=== PATIENT | male | born 1970 | race Two or more races ===

== ENCOUNTER → 2016-02-22 | Outpatient (CLI) | payer BC ==
[2015-07-15 11:15] VITALS: BP 111/70
[~2016-02-22] MED LIST: ASPI325T4 PO; LIPITOR80 MG PO; LISI-338 PO; METO25TA4 PO; OMEG500C PO; PRAS10TA4 PO; REGADENOSON 0.4 MG/5 ML DISP.SYRIN. IV ONE
--- NOTE | 2016-02-22 16:54 | RAD ---
APPROVED REPORT Test Type: Pharmacological Stress Nurse/Tech: Serena Hernandez R.N. Test Indications: Chest pain, CAD Cardiac History: Hypertension, PR in 2016, PTCA Medications: See Electronic Medical Record Medical History: See Electronic Medical Record Resting ECG: NSR Resting Heart Rate: 65 bpm Resting Blood Pressure: 119/73mmHg Pretest Chest Pain: No chest pain Nurse/Tech Notes S1S2, lungs sound clear Consent: The procedure was explained to the patient in lay terms. Informed consent was witnessed. Omer eout was entered into [employer]. History and Stress Test performed by Serena Hernandez R.N. Pharm. Details Pharmacologic stress testing was performed using 0.4mg per 5ml of regadenoson given intravenously ove r 7-10 seconds. Stress Symptoms Dyspnea POST EXERCISE Reason for Termination: Infusion complete Max HR: 106 bpm Max Blood Pressure: 122/73mmHg Blood Pressure response to exercise: Normal blood pressure response during stress. Chest Pain: No. Arrhythmia: No. ST Change: No. INTERPRETATION Stress EKG Conclusion: No acute changes. Imaging Protocol IMAGE PROTOCOL: Rest Tc-99m/stress Tc-99m 1 day Rest: Stress: Viability: Radiopharm.Tc99m KgajrjisjRn11q Sestamibi Dose10.4mCi 30mCi Duration 15min. 10min. Img Date 02/22/2016 02/22/2016 Inj-Img Mrop63hte. 60min. Rest Admin Site:IV - Right AntecubitalAdministrator:Miguel Angel Vogt RT (R)(N) Stress Admin Site: IV - Right AntecubitalAdministrator: Kaylen Woods RT (R)(N) STRESS DATA End Diast. Vol.106.0mlAv. Heart Rate71.0bpm End Syst. Vol.29.0mlCO Index BSA5.5L/min Myocardial Vjgy256.0gEject. Vtylohpd08.0% Stress Rates Pk. Fill Rate2.61EDV/secLVtime Pk. Fill 188.51msec Pk. Empty Rate3.28ESV/secLVtime Pk. Plwnw526.98msec 02/15 Pk. Fill1.41EDV/sec Stress Scores Regional WT1.00Summed WT18.00 Regional WM0.00Summed WM0.00 LV Perfusion There is a large sized, severe in intensity lateral perfusion defect suggestive of prior infarct with minimal jenniffer-infarct reversibility. Wall Motion Grossly normal wall motion. LV Perf. Quant 17 Seg. SSS9.00 17 Seg. SRS8.00 17 Seg. SDS1.00 Stress Defect Extent (% LAD)1.90Rest Defect Extent (% LAD)0.60Rev. Defect Extent (% LAD)0.00 Stress Defect Extent (% LCX) 75.00Rest Defect Extent (% LCX)77.50Rev. Defect Extent (% LCX)16.30 Stress Defect Extent (% RCA)0.00Rest Defect Extent (% RCA)0.00Rev. Defect Extent (% RCA)0.00 Stress Defect Extent (% NAMRATA)18.30Rest Defect Extent (% NAMRATA)17.60Rev. Defect Extent (% NAMRATA)4.80 Other Information Quality:Good Risk Assessment: Low-Moderate Risk Conclusion 1. No evidence of stress induced EKG changes. 2. Fixed lateral wall infarct without active ischemia. 3. Normal EF at > 70% 4. Low to moderate risk study
== END | disposition home or self-care (01) ==
LOC: NM 07:34
PROVIDERS: ATTEND Internal Medicine Cardiovascular Disease
DX: I25.10 Atherosclerotic heart disease of native coronary artery without angina pectoris (principal); R07.9 Chest pain, unspecified
CPT/HCPCS: 78452; 93017; 96374; 96376; A9500; J2785

== ENCOUNTER 2016-06-18 07:21 | Inpatient (IN) | payer BC ==
[2016-06-18] VITALS (19 sets, daily range): BP systolic 95–154; BP diastolic 61–103
[~2016-06-18] VITALS: Ht 170.2 cm; Wt 77.6 kg
[~2016-06-18 07:21] MED LIST changes: -PRAS10TA4 PO; +PRAS10TA9 PO; -REGADENOSON 0.4 MG/5 ML DISP.SYRIN. IV ONE
--- NOTE | 2016-06-18 07:30 | PHYS DOC ---
Past Medical History Past Medical History: No Pertinent History Past Surgical History: Other Alcohol Use: Occasionally Drug Use: None Adult General Chief Complaint Chief Complaint: syncope, vomiting blood HPI HPI Patient is a 45 year old Berm[place] speaking male who presents with intermittent sharp stabbing substernal chest pain with a syncopal episode and vomiting blood. He states he's been having intermittent chest pains over the last several months and this morning he started feeling nauseated and had a syncopal episode. His daughter noticed blood in his vomit. According to his daughter who is helping interpret he's never had blood in his vomit before. He does have a history of coronary disease and has had stents by Dr. Nguyen in the past to his mid circumflex, mid LAD and RCA. He did have a history of alcohol abuse but hasn't drank for over a year. He used to drink one bottle of Deandre Walker every week any stone that from the age of 20 until last year. He stated he noticed black stool this morning. He also has past medical history of coronary disease, hypertension, dyslipidemia. Currently he denies any chest pain, shortness of breath, abdominal abdominal pain, nausea or vomiting. Review of Systems Review of Systems Constitutional: Denies fever or chills [] Eyes: Denies change in visual acuity, redness, or eye pain [] HENT: Denies nasal congestion or sore throat [] Respiratory: Denies cough or shortness of breath [] Cardiovascular: No additional information not addressed in HPI [] GI: Denies abdominal pain, nausea, vomiting, or diarrhea, positive for hematemesis [] : Denies dysuria or hematuria [] Musculoskeletal: Denies back pain or joint pain [] Integument: Denies rash or skin lesions [] Neurologic: Denies headache, focal weakness or sensory changes [] Endocrine: Denies polyuria or polydipsia [] Current Medications Current Medications Current Medications Medications (Trade) Dose Ordered Sig/Nele Start Time Stop Time Status Last Admin Dose Admin Norepinephrine Bitartrate 250 ml @ 0 mls/hr 1X ONCE 06/18/16 08:00 06/18/16 08:03 DC 06/18/16 08:09 2 MLS/HR Octreotide Acetate 500 mcg/ Sodium Chloride 101 ml @ 0 mls/hr CONT PRN 06/18/16 08:30 06/18/16 09:27 5 MLS/HR Pantoprazole Sodium 80 mg/ Sodium Chloride 100 ml @ 10 mls/hr 1X ONCE 06/18/16 08:00 06/18/16 17:59 Sodium Chloride 1,000 ml @ 1,000 mls/hr 1X ONCE 06/18/16 08:00 06/18/16 08:59 DC 06/18/16 08:06 1,000 MLS/HR Allergies Allergies Allergies Coded Allergies Type Severity Reaction Last Updated Verified No Known Drug Allergies 07/11/15 No Physical Exam Physical Exam Constitutional: Well developed, well nourished, no acute distress, non-toxic appearance. [] HENT: Normocephalic, atraumatic, bilateral external ears normal, oropharynx moist, no oral exudates, nose normal. [] Eyes: PERRLA, EOMI, conjunctiva normal, no discharge. [] Neck: Normal range of motion, no tenderness, supple, no stridor. [] Cardiovascular:Heart rate regular rhythm, no murmur [] Lungs & Thorax: Bilateral breath sounds clear to auscultation [] Abdomen/rectal: Bowel sounds normal, soft, no tenderness, no masses, no pulsatile masses. Normal tone, stool in the vault, stool black in appearance, [ ] Skin: Warm, dry, no erythema, no rash. [] Back: No tenderness, no CVA tenderness. [] Extremities: No tenderness, no cyanosis, no clubbing, ROM intact, no edema. [] Neurologic: Alert and oriented X 3, normal motor function, normal sensory function, no focal deficits noted. [] Psychologic: Affect normal, judgement normal, mood normal. [] Current Patient Data Vital Signs Vital Signs Date Time Temp Pulse Resp B/P (MAP) Pulse Ox O2 Delivery O2 Flow Rate FiO2 06/18/16 07:21 97.8 87 20 102/68 (79) 98 Room Air 97.8 Lab Values Laboratory Tests Test 06/18/16 07:42 06/18/16 08:06 White Blood Count 8.4 x10^3/uL (4.0-11.0) Red Blood Count 3.72 x10^6/uL (4.30-5.70) L Hemoglobin 10.9 g/dL (13.0-17.5) L Hematocrit 33.8 % (39.0-53.0) L Mean Corpuscular Volume 91 fL (79-100) Mean Corpuscular Hemoglobin 29 pg (25-35) Mean Corpuscular Hemoglobin Concent 32 g/dL (31-37) Red Cell Distribution Width 13.7 % (11.5-14.5) Platelet Count 245 x10^3/uL (140-400) Neutrophils (%) (Auto) 54 % (31-73) Lymphocytes (%) (Auto) 35 % (24-48) Monocytes (%) (Auto) 6 % (0-9) Eosinophils (%) (Auto) 5 % (0-3) H Basophils (%) (Auto) 1 % (0-3) Neutrophils # (Auto) 4.5 x10^3uL (1.8-7.7) Lymphocytes # (Auto) 3.0 x10^3/uL (1.0-4.8) Monocytes # (Auto) 0.5 x10^3/uL (0.0-1.1) Eosinophils # (Auto) 0.4 x10^3/uL (0.0-0.7) Basophils # (Auto) 0.1 x10^3/uL (0.0-0.2) Prothrombin Time 15.0 SEC (11.7-14.0) H Prothrombin Time INR 1.3 (0.8-1.1) H PTT 32 SEC (24-38) O2 Saturation 94 % (92-99) Arterial Blood pH 7.36 (7.35-7.45) Arterial Blood pCO2 at Patient Temp 35 mmHg (35-46) Arterial Blood pO2 at Patient Temp 80 mmHg (75-108) Arterial Blood HCO3 20 mmol/L (21-28) L Arterial Blood Base Excess -5 mmol/L (-3-3) L FiO2 21 Sodium Level 141 mmol/L (136-145) Potassium Level 3.5 mmol/L (3.5-5.1) Chloride Level 106 mmol/L (98-107) Carbon Dioxide Level 25 mmol/L (21-32) Anion Gap 10 (6-14) Blood Urea Nitrogen 42 mg/dL (8-26) H Creatinine 0.8 mg/dL (0.7-1.3) Estimated GFR (Cockcroft-Gault) 104.5 Glucose Level 187 mg/dL (70-99) H Calcium Level 7.3 mg/dL (8.5-10.1) L Total Bilirubin 0.3 mg/dL (0.2-1.0) Direct Bilirubin 0.1 mg/dL (0.0-0.2) Aspartate Amino Transferase (AST) 30 U/L (15-37) Alanine Aminotransferase (ALT) 72 U/L (16-63) H Alkaline Phosphatase 55 U/L (46-116) Ammonia 57 mcmol/L (11-34) H Creatine Kinase 113 U/L (39-308) Creatine Kinase MB (Mass) 0.9 ng/mL (0.0-3.6) Creatine Kinase MB Relative Index 0.8 % (0-4) Troponin I Quantitative 0.020 ng/mL (0.000-0.055) Total Protein 5.9 g/dL (6.4-8.2) L Albumin 2.9 g/dL (3.4-5.0) L Stool Occult Blood Positive (NEG) Laboratory Tests 06/18/16 07:42 Laboratory Tests 06/18/16 07:42 EKG EKG EKG shows normal sinus rhythm with rate of [address] elevations, T- wave inversions, QTC 431 ms, as interpreted by me. Radiology/Procedures Radiology/Procedures [facility] [address] [place] [address] IMAGING REPORT Signed PATIENT: BUNNY DAMON ACCOUNT: [id number] : 1970 LOCATION: ER AGE: 45 SEX: M EXAM STATUS: PRE ER ORD. PHYSICIAN: RAMOS MAY MD REASON: chest pain, clammy and not responding to instructions PROCEDURE: ACUTE ABDOMEN SERIES Indication chest pain. Abdominal pain. A single view of the chest as well as flat and upright films of the abdomen were obtained. No prior imaging of the abdomen is available. The chest is compared to a study 07/11/2015. The heart, pulmonary vessels and mediastinum appear clear. The lungs are clear of acute infiltrates. There has not been a significant change in the appearance of the chest compared to the previous exam. There is no free air. The abdominal gas pattern is normal. No organomegaly or abnormal calculi are seen. Occasional small calcifications are noted in the pelvis compatible with phleboliths. IMPRESSION: No acute finding seen in the chest or abdomen on plain films DICTATED and SIGNED BY: ANTONIO ALEJO MD DATE: 06/18/16803 CC: RAMOS MAY MD; NO PCP ~ Impressions: Active GI bleed Coronary disease Hypotension Anemia Coronary disease Dyslipidemia Course & Med Decision Making Course & Med Decision Making Pertinent Labs and Imaging studies reviewed. (See chart for details) Patient presented with hypotension, history of bright red blood in his vomit with dark stools this morning and a syncopal episode. He received 250 mL of normal saline in route by EMS and his blood pressure did improve from 90s to 120s systolic. Here his blood pressure dropped to the 60s and he became diaphoretic. Additional liter of fluid was infused and his blood pressure improved back into the 90s. Levofed was ordered in addition to Protonix ggt. I spoke with who wanted the GI team called in for emergent scope and for the patient to be started on octreotide ggt and 2 units of blood. Patient is being admitted to the ICU under the hospitalist. Interim orders have been written. The patient is in stable but critical condition. This has been explained to his daughter. Echo care time 60 minutes of critical care time was used on this patient excluding procedures. Dragon Disclaimer Dragon Disclaimer This electronic medical record was generated, in whole or in part, using a voice recognition dictation system. Departure Departure Impression: Primary Impression: GI bleed Disposition: ADMITTED INPATIENT Admitting Physician: Esther Funk Condition: CRITICAL Referrals: NO PCP (PCP) RAMOS MAY MD June 18, 2016 07:30
[2016-06-18] MEDS ORDERED: IV NORMAL SALINE 1000ML BAG 1,000 ML IV ONE (08:00)
[2016-06-18] MEDS ORDERED: NOREPINEPHRIN PREMIX 250 ML IV ONE (08:00)
[2016-06-18] MEDS ORDERED: PANTOPRAZOLE SODIUM IV 80 MG in IV NORMAL SALINE 100ML 100 ML IV ONE (08:00)
[2016-06-18 08:03] LABS: BASO # 0.1 x10^3/uL (0.0-0.2); BASO % 1 % (0-3); EOS % 5 % (0-3); HEMATOCRIT 33.8 % (39.0-53.0); HEMOGLOBIN 10.9 g/dL (13.0-17.5); LYMPH % 35 % (24-48); MEAN CORPUSCULAR HEMOGLOBIN 29 pg (25-35); MEAN CORPUSCULAR HGB CONC 32 g/dL (31-37); MEAN CORPUSCULAR VOLUME 91 fL (79-100); MONO % 6 % (0-9); NEUT % 54 % (31-73); PLATELET COUNT 245 x10^3/uL (140-400); RED BLOOD COUNT 3.72 x10^6/uL (4.30-5.70); RED CELL DISTRIBUTION WIDTH 13.7 % (11.5-14.5); WHITE BLOOD COUNT 8.4 x10^3/uL (4.0-11.0)
[2016-06-18 08:04] LABS: INR 1.3 (0.8-1.1)
--- NOTE | 2016-06-18 08:10 | RAD ---
Indication chest pain. Abdominal pain. A single view of the chest as well as flat and upright films of the abdomen were obtained. No prior imaging of the abdomen is available. The chest is compared to a study 07/11/2015. The heart, pulmonary vessels and mediastinum appear clear. The lungs are clear of acute infiltrates. There has not been a significant change in the appearance of the chest compared to the previous exam. There is no free air. The abdominal gas pattern is normal. No organomegaly or abnormal calculi are seen. Occasional small calcifications are noted in the pelvis compatible with phleboliths. IMPRESSION: No acute finding seen in the chest or abdomen on plain films
[2016-06-18 08:11] LABS: FIO2 ABG 21; HCO3 ABG 20 mmol/L (21-28); PCO2 ABG 35 mmHg (35-46); PH ABG 7.36 (7.35-7.45); PO2 ABG 80 mmHg (75-108); SAT O2 ABG 94 % (92-99)
[2016-06-18 08:13] LABS: CALCIUM 7.3 mg/dL (8.5-10.1); CREATININE 0.8 mg/dL (0.7-1.3); GFR 104.5; POTASSIUM 3.5 mmol/L (3.5-5.1)
[2016-06-18 08:19] LABS: ALBUMIN 2.9 g/dL (3.4-5.0); DIRECT BILIRUBIN 0.1 mg/dL (0.0-0.2); TOTAL BILIRUBIN 0.3 mg/dL (0.2-1.0); TOTAL PROTEIN 5.9 g/dL (6.4-8.2)
[2016-06-18 08:25] LABS: CKMB MASS 0.9 ng/mL (0.0-3.6)
[2016-06-18] MEDS ORDERED: OCTREOTIDE 500 MCG in IV NORMAL SALINE 100ML 100 ML IV PRN (08:30)
[2016-06-18 08:42] LABS: NEG OBC FOB NEG; POS OBC FOB POS
[2016-06-18] MEDS ORDERED: ONDANSETRON PF 4 MG/2 ML VIAL. IV PRN (08:45)
[2016-06-18] MEDS ORDERED: MIDAZOLAM HCL/PF 5 MG/5 ML VIAL. ONE ×2 (09:16→09:17)
[2016-06-18] MEDS ORDERED: diphenhydrAMINE 50 MG/ML VIAL ONE (09:17)
[2016-06-18] MEDS ORDERED: fentaNYL PF VIAL 100 MCG/2 ML VIAL ONE (09:17)
--- NOTE | 2016-06-18 09:38 | EKG ---
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
[2016-06-18] MEDS ORDERED: MIDAZOLAM HCL/PF 5 MG/5 ML VIAL. IV ONE ×5 (09:58→10:13)
[2016-06-18] MEDS ORDERED: fentaNYL PF VIAL 100 MCG/2 ML VIAL IV ONE ×5 (09:58→10:13)
[2016-06-18] MEDS ORDERED: EPINEPHrine 1 MG/ML VIAL SQ ONE (10:10)
--- NOTE | 2016-06-18 10:31 | PDOC4 ---
Operative Note Operative Note EGD with cautery/epi injection Meds Versed 7 mg Fentanyl 200 mcg iv Pre-op dx acute blood loss anemia/melena/hematemesis post-op dx bleeding gastric ulcer s/p cautery /epi injection 8 cc lesser curve with visible vessel -40% chance of rebleeding with endoscopic stigmata Plan serial cbcs transfusional support to maintain Hg > 8 ir/surgical consults for possible embolization/oversew if patient rebleeds npo for 48 hours/IV PPI therapy TJ MARAVILLA MD June 18, 2016 10:31
[2016-06-18] MEDS ORDERED: EPINEPHrine SYRINGE 1 MG/10 ML SYRINGE ONE (10:57)
--- NOTE | 2016-06-18 13:02 | ACF ---
Admission Forms Criteria GASTROINTESTINAL BLEEDING Clinical Indications for Inpatient Care (Place 'X' for any and all applicable criteria): Ongoing inpatient care may be indicated for gastrointestinal bleeding with ANY ONE of the following (4)(20)(21)(22)(23)(24): [ ]I. Active bleeding (eg, fresh voluminous blood in emesis or nasogastric aspirate, or per rectum) [X]II. Hemodynamic instability [ ]III. Anticoagulation therapy or coagulopathy ((eg, advanced liver disease, irreversible anticoagulation) [ ]IV. Ischemic colitis (22) [ ]V. Endoscopy showing arterial bleeding, adherent clot, nonbleeding visible vessel, varices, flat red spots, ulcer size greater than 2 cm, or portal hypertensive gastropathy [ ]. High-risk low platelet count [ ]VII. Anemia requiring inpatient care as indicated by ANY ONE of the following a)[ ] Cognitive impairment b)[ ] Syncope c)[ ] Heart failure d)[ ] Chest pain e)[ ] Dyspnea f)[ ] Other findings suggesting inadequate perfusion (eg, peripheral or myocardial ischemia, end organ dysfunction) [ ]VIII. High-risk low platelet count [ ]IX. Suspected variceal cause of bleeding as indicated by ANY ONE of the following(27)(28): a)[ ] Known varices b)[ ] Hepatomegaly or splenomegaly c)[ ] Ascites d)[ ] Jaundice or scleral icterus e)[ ] History of liver disease (eg, cirrhosis) f)[ ] Physical findings of portal hypertension (eg, caput medusa) g)[ ] Comorbid disorder indicating risk for portal vein thrombosis (eg , abdominal surgery, sepsis, shock, exchange transfusion, prior umbilical vein catheterization) Extended stay may be needed until ALL of the following are present(20)(38)(47): [ ]a) Hemodynamic stability [ ]b) No evidence of active bleeding (eg, stable Hematocrit) [ ]c) Platelet count, prothrombin time, and partial thromboplastin time acceptable for next level of care [ ]d) Surgical or other acute intervention not needed [ ]e) Oral hydration and diet tolerated The original [employer] content created by [employer] has been revised. The portions of the content which have been revised are identified through the use of italic text or in bold, and [employer] has neither reviewed nor approved the modified material. All other unmodified content is copyright [facility]. Please see references footnoted in the original [facility] edition 2016 Admission Criteria Met?: Yes HENRIETTA CAPELLAN June 18, 2016 13:02
[2016-06-18] MEDS ORDERED: DEXTROSE 50% 25 GM / 50ML DISP.SYRIN. IV PRN (15:15)
--- NOTE | 2016-06-18 16:13 | PDOC1 ---
History and Physical Date of Admission Date of Admission DATE: 06/18/16 TIME: 16:02 Identification/Chief Complaint Chief Complaint hematemesis Problems: Source Source: Chart review, Patient History of Present Illness History of Present Illness Mr. Lacey, is a 45 year old [place] male, admit fo abd pain and hematemesis New onset this AM of intermittent sharp stabbing pain with a syncopal episode. I saw him in the ICU after EGD, and he is calm and reports feeling better some translation done by his son. reports intermittent chest pains, and only recently nauseated . Stool has been more melanotic, this AM only He has stopped EtOH intake, prior heavy use. Past Medical History Cardiovascular: No pertinent hx Pulmonary: No pertinent hx GI: Other Renal/: No pertinent hx Endocrine: No pertinent hx Past Surgical History Past Surgical History: Cholecystectomy Family History Family History: No Significant Social History Smoke: No ALCOHOL: occassional Drugs: None Current Problem List Problem List Problems Medical Problems: (1) GI bleed Status: Acute Problems: Current Medications Current Medications Current Medications Sodium Chloride 1,000 ml @ 1,000 mls/hr 1X ONCE IV Last administered on 08:06; Start 06/18/16 at 08:00; Stop 06/18/16 at 08:59; Status DC Norepinephrine Bitartrate 250 ml @ 0 mls/hr 1X ONCE IV Last administered on 08:09; Start 06/18/16 at 08:00; Stop 06/18/16 at 08:03; Status DC Pantoprazole Sodium 80 mg/ Sodium Chloride 100 ml @ 10 mls/hr 1X ONCE IV Last administered on 06/18/16 13:25; Start 06/18/16 at 08:00; Stop 06/18/16 at 17: 59 Octreotide Acetate 500 mcg/ Sodium Chloride 101 ml @ 0 mls/hr CONT PRN IV SEE I /O RECORD Last administered on 06/18/16 09:27; Start 06/18/16 at 08:30 Ondansetron HCl (Zofran) 4 mg PRN Q8HRS PRN IV NAUSEA/VOMITING; Start 06/18/16 at 08:45; Stop 06/19/16 at 08:44 Midazolam HCl (Versed) 5 mg STK-MED ONCE .ROUTE ; Start 06/18/16 at 09:16; Stop 06/18/16 at 09:17; Status DC Fentanyl Citrate (Fentanyl 2ml Vial) 100 mcg STK-MED ONCE .ROUTE ; Start at 09:17; Stop 06/18/16 at 09:18; Status DC Diphenhydramine HCl (Benadryl) 50 mg STK-MED ONCE .ROUTE ; Start 06/18/16 at 09: 17; Stop 06/18/16 at 09:18; Status DC Midazolam HCl (Versed) 5 mg STK-MED ONCE .ROUTE ; Start 06/18/16 at 09:17; Stop 06/18/16 at 09:18; Status DC Fentanyl Citrate (Fentanyl 2ml Vial) 100 mcg STK-MED ONCE IV Last administered on 06/18/16 09:58; Start 06/18/16 at 09:58; Stop 06/18/16 at 10:31; Status DC Midazolam HCl (Versed) 5 mg STK-MED ONCE IV Last administered on 06/18/16 09:58 ; Start 06/18/16 at 09:58; Stop 06/18/16 at 10:31; Status DC Fentanyl Citrate (Fentanyl 2ml Vial) 100 mcg STK-MED ONCE IV Last administered on 06/18/16 10:00; Start 06/18/16 at 10:00; Stop 06/18/16 at 10:31; Status DC Midazolam HCl (Versed) 5 mg STK-MED ONCE IV Last administered on 06/18/16 10:00 ; Start 06/18/16 at 10:00; Stop 06/18/16 at 10:31; Status DC Fentanyl Citrate (Fentanyl 2ml Vial) 100 mcg STK-MED ONCE IV Last administered on 06/18/16 10:02; Start 06/18/16 at 10:02; Stop 06/18/16 at 10:31; Status DC Midazolam HCl (Versed) 5 mg STK-MED ONCE IV Last administered on 06/18/16 10:02 ; Start 06/18/16 at 10:02; Stop 06/18/16 at 10:31; Status DC Fentanyl Citrate (Fentanyl 2ml Vial) 100 mcg STK-MED ONCE IV Last administered on 06/18/16 10:11; Start 06/18/16 at 10:11; Stop 06/18/16 at 10:31; Status DC Midazolam HCl (Versed) 5 mg STK-MED ONCE IV Last administered on 06/18/16 10:11 ; Start 06/18/16 at 10:11; Stop 06/18/16 at 10:31; Status DC Fentanyl Citrate (Fentanyl 2ml Vial) 100 mcg STK-MED ONCE IV Last administered on 06/18/16 10:13; Start 06/18/16 at 10:13; Stop 06/18/16 at 10:31; Status DC Midazolam HCl (Versed) 5 mg STK-MED ONCE IV Last administered on 06/18/16 10:13 ; Start 06/18/16 at 10:13; Stop 06/18/16 at 10:31; Status DC Epinephrine HCl (Adrenalin) 1 mg STK-MED ONCE SQ Last administered on 06/18/16 10:10; Start 06/18/16 at 10:10; Stop 06/18/16 at 10:52; Status DC Epinephrine HCl (Epinephrine Syringe) 1 mg STK-MED ONCE .ROUTE ; Start 06/18/16 at 10:57; Stop 06/18/16 at 10:58; Status DC Insulin Aspart (Novolog) 0-7 UNITS TIDWMEALS SQ ; Start 06/18/16 at 17:00 Dextrose (Dextrose 50%-Water Syringe) 12.5 gm PRN Q15MIN PRN IV SEE COMMENTS; Start 06/18/16 at 15:15 Potassium Chloride 100 ml @ 100 mls/hr Q1H IV ; Start 06/18/16 at 16:00; Stop at 17:59 Active Scripts Active Metoprolol Tartrate 25 Mg Tablet 1 Tab PO BID Lipitor (Atorvastatin Calcium) 80 Mg Tablet 1 Tab PO DAILY Effient (Prasugrel Hcl) 10 Mg Tablet 1 Tab PO DAILY Allergies Allergies: Coded Allergies: No Known Drug Allergies (Unverified , 07/11/15) ROS General: No: Chills, Night Sweats, Fatigue, Malaise, Appetite, Other PSYCHOLOGICAL ROS: No: Anxiety, Behavioral Disorder, Concentration difficultie , Decreased libido, Depression, Disorientation, Hallucinations, Hostility, Irritablity, Memory difficulties, Mood Swings, Obsessive thoughts, Physical abuse, Sexual abuse, Sleep disturbances, Suicidal ideation, Other Eyes: No Blurry vision, No Decreased vision, No Double vision, No Dry eyes, No Excessive tearing, No Eye Pain, No Itchy Eyes, No Loss of vision, No Photophobia , No Scotomata, No Uses contacts, No Uses glasses, No Other HEENT: YES: Heacaches, No: Visual Changes, Hearing change, Nasal congestion, Nasal discharge, Oral lesions, Sinus pain, Sore Throat, Epistaxis, Sneezing, Snoring, Tinnitus, Vertigo, Vocal changes, Other Gastrointestinal: Yes Nausea, Yes Vomiting, Yes Abdominal Pain, Yes Melena, Yes Hematochezia, No Diarrhea, No Constipation, No Other Genitourinary: No Dysuria, No Frequency, No Incontinence, No Hematuria, No Retention, No Discharge, No Urgency, No Pain, No Flank Pain, No Other, No , No , No , No , No , No , No Musculoskeletal: No Gait Disturbance, No Joint Pain, No Joint Stiffness, No Joint Swelling, No Muscle Pain, No Muscular Weakness, No Pain In:, No Swelling In:, No Other Neurological: No Behavorial Changes, No Bowel/Bladder ControlChng, No Confusion , No Dizziness, No Gait Disturbance, No Headaches, No Impaired Coord/balance, No Memory Loss, No Numbness/Tingling, No Seizures, No Speech Problems, No Tremors, No Visual Changes, No Weakness, No Other Skin: No Dry Skin, No Eczema, No Hair Changes, No Lumps, No Mole Changes, No Mottling, No Nail Changes, No Pruritus, No Rash, No Skin Lesion Changes, No Other, No Acne Physical Exam General: Alert, Oriented X3, Cooperative, No acute distress HEENT: EOMI, Mucous membr. moist/pink Lungs: Normal air movement Heart: S1S2 Abdomen: Normal bowel sounds, Soft (tender) Rectal Exam: not examined Extremities: No clubbing, No edema Skin: No rashes, No breakdown, No significant lesion Neuro: Normal speech, Sensation intact, Cranial nerves 3-12 NL Psych/Mental Status: Mental status NL, Mood NL Vitals Vitals Vital Signs Date Time Temp Pulse Resp B/P (MAP) Pulse Ox O2 Delivery O2 Flow Rate FiO2 06/18/16 15:00 105 128/82 (97) 99 Room Air 06/18/16 11:30 98.5 18 98.5 06/18/16 10:53 3.0 Labs Labs Laboratory Tests Test 06/18/16 07:42 06/18/16 08:06 White Blood Count 8.4 x10^3/uL (4.0-11.0) Red Blood Count 3.72 x10^6/uL (4.30-5.70) Hemoglobin 10.9 g/dL (13.0-17.5) Hematocrit 33.8 % (39.0-53.0) Mean Corpuscular Volume 91 fL (79-100) Mean Corpuscular Hemoglobin 29 pg (25-35) Mean Corpuscular Hemoglobin Concent 32 g/dL (31-37) Red Cell Distribution Width 13.7 % (11.5-14.5) Platelet Count 245 x10^3/uL (140-400) Neutrophils (%) (Auto) 54 % (31-73) Lymphocytes (%) (Auto) 35 % (24-48) Monocytes (%) (Auto) 6 % (0-9) Eosinophils (%) (Auto) 5 % (0-3) Basophils (%) (Auto) 1 % (0-3) Neutrophils # (Auto) 4.5 x10^3uL (1.8-7.7) Lymphocytes # (Auto) 3.0 x10^3/uL (1.0-4.8) Monocytes # (Auto) 0.5 x10^3/uL (0.0-1.1) Eosinophils # (Auto) 0.4 x10^3/uL (0.0-0.7) Basophils # (Auto) 0.1 x10^3/uL (0.0-0.2) Prothrombin Time 15.0 SEC (11.7-14.0) Prothromb Time International Ratio 1.3 (0.8-1.1) Activated Partial Thromboplast Time 32 SEC (24-38) O2 Saturation 94 % (92-99) Arterial Blood pH 7.36 (7.35-7.45) Arterial Blood pCO2 at Patient Temp 35 mmHg (35-46) Arterial Blood pO2 at Patient Temp 80 mmHg (75-108) Arterial Blood HCO3 20 mmol/L (21-28) Arterial Blood Base Excess -5 mmol/L (-3-3) FiO2 21 Sodium Level 141 mmol/L (136-145) Potassium Level 3.5 mmol/L (3.5-5.1) Chloride Level 106 mmol/L (98-107) Carbon Dioxide Level 25 mmol/L (21-32) Anion Gap 10 (6-14) Blood Urea Nitrogen 42 mg/dL (8-26) Creatinine 0.8 mg/dL (0.7-1.3) Estimated GFR (Cockcroft-Gault) 104.5 Glucose Level 187 mg/dL (70-99) Calcium Level 7.3 mg/dL (8.5-10.1) Total Bilirubin 0.3 mg/dL (0.2-1.0) Direct Bilirubin 0.1 mg/dL (0.0-0.2) Aspartate Amino Transf (AST/SGOT) 30 U/L (15-37) Alanine Aminotransferase (ALT/SGPT) 72 U/L (16-63) Alkaline Phosphatase 55 U/L (46-116) Ammonia 57 mcmol/L (11-34) Creatine Kinase 113 U/L (39-308) Creatine Kinase MB (Mass) 0.9 ng/mL (0.0-3.6) Creatine Kinase MB Relative Index 0.8 % (0-4) Troponin I Quantitative 0.020 ng/mL (0.000-0.055) Total Protein 5.9 g/dL (6.4-8.2) Albumin 2.9 g/dL (3.4-5.0) Stool Occult Blood Positive (NEG) Laboratory Tests Test 06/18/16 07:42 06/18/16 08:06 White Blood Count 8.4 x10^3/uL (4.0-11.0) Red Blood Count 3.72 x10^6/uL (4.30-5.70) Hemoglobin 10.9 g/dL (13.0-17.5) Hematocrit 33.8 % (39.0-53.0) Mean Corpuscular Volume 91 fL (79-100) Mean Corpuscular Hemoglobin 29 pg (25-35) Mean Corpuscular Hemoglobin Concent 32 g/dL (31-37) Red Cell Distribution Width 13.7 % (11.5-14.5) Platelet Count 245 x10^3/uL (140-400) Neutrophils (%) (Auto) 54 % (31-73) Lymphocytes (%) (Auto) 35 % (24-48) Monocytes (%) (Auto) 6 % (0-9) Eosinophils (%) (Auto) 5 % (0-3) Basophils (%) (Auto) 1 % (0-3) Neutrophils # (Auto) 4.5 x10^3uL (1.8-7.7) Lymphocytes # (Auto) 3.0 x10^3/uL (1.0-4.8) Monocytes # (Auto) 0.5 x10^3/uL (0.0-1.1) Eosinophils # (Auto) 0.4 x10^3/uL (0.0-0.7) Basophils # (Auto) 0.1 x10^3/uL (0.0-0.2) Prothrombin Time 15.0 SEC (11.7-14.0) Prothromb Time International Ratio 1.3 (0.8-1.1) Activated Partial Thromboplast Time 32 SEC (24-38) O2 Saturation 94 % (92-99) Arterial Blood pH 7.36 (7.35-7.45) Arterial Blood pCO2 at Patient Temp 35 mmHg (35-46) Arterial Blood pO2 at Patient Temp 80 mmHg (75-108) Arterial Blood HCO3 20 mmol/L (21-28) Arterial Blood Base Excess -5 mmol/L (-3-3) FiO2 21 Sodium Level 141 mmol/L (136-145) Potassium Level 3.5 mmol/L (3.5-5.1) Chloride Level 106 mmol/L (98-107) Carbon Dioxide Level 25 mmol/L (21-32) Anion Gap 10 (6-14) Blood Urea Nitrogen 42 mg/dL (8-26) Creatinine 0.8 mg/dL (0.7-1.3) Estimated GFR (Cockcroft-Gault) 104.5 Glucose Level 187 mg/dL (70-99) Calcium Level 7.3 mg/dL (8.5-10.1) Total Bilirubin 0.3 mg/dL (0.2-1.0) Direct Bilirubin 0.1 mg/dL (0.0-0.2) Aspartate Amino Transf (AST/SGOT) 30 U/L (15-37) Alanine Aminotransferase (ALT/SGPT) 72 U/L (16-63) Alkaline Phosphatase 55 U/L (46-116) Ammonia 57 mcmol/L (11-34) Creatine Kinase 113 U/L (39-308) Creatine Kinase MB (Mass) 0.9 ng/mL (0.0-3.6) Creatine Kinase MB Relative Index 0.8 % (0-4) Troponin I Quantitative 0.020 ng/mL (0.000-0.055) Total Protein 5.9 g/dL (6.4-8.2) Albumin 2.9 g/dL (3.4-5.0) Stool Occult Blood Positive (NEG) VTE Prophylaxis Ordered VTE Prophylaxis Devices: No VTE Pharmacological Prophylaxi: Yes Assessment/Plan Assessment/Plan hematemesis Acute blood loss anemia, GI bleed, upper elevated BUN from gastric blood moderate malnutrition possible cirrhosis of liver, elevated ammonia level admit to ICU protonix gtt and octreotide MARTHA STONE MD June 18, 2016 16:13
[2016-06-18 16:14] LABS: BASO % 0 % (0-3); EOS % 0 % (0-3); HEMATOCRIT 36.7 % (39.0-53.0); HEMOGLOBIN 12.5 g/dL (13.0-17.5); LYMPH % 17 % (24-48); MEAN CORPUSCULAR HEMOGLOBIN 30 pg (25-35); MEAN CORPUSCULAR HGB CONC 34 g/dL (31-37); MEAN CORPUSCULAR VOLUME 87 fL (79-100); MONO % 6 % (0-9); NEUT % 77 % (31-73); PLATELET COUNT 230 x10^3/uL (140-400); RED BLOOD COUNT 4.23 x10^6/uL (4.30-5.70); RED CELL DISTRIBUTION WIDTH 14.3 % (11.5-14.5); WHITE BLOOD COUNT 11.9 x10^3/uL (4.0-11.0)
[2016-06-18] MEDS ORDERED: fentaNYL PF VIAL 100 MCG/2 ML VIAL IV PRN (16:15)
[2016-06-18] MEDS: INSULIN ASPART 300 UNITS/3 ML INSULN.PEN SQ SCH (17:00)
[2016-06-18] MEDS: POTASSIUM CHLORIDE 10MEQ 100 ML IV SCH ×2 (17:23→19:02)
--- NOTE | 2016-06-18 20:07 | OP ---
DATE OF SURGERY: 06/18/2016 PROCEDURE: Esophagogastroduodenoscopy with control of bleeding with epinephrine injection and cautery. PREOPERATIVE DIAGNOSIS: Acute blood loss anemia, hematemesis and melena. POSTOPERATIVE DIAGNOSIS: Gastric ulcer bleed on the lesser curve, status post cautery and epinephrine injection. MEDICATIONS RECEIVED: Versed ____ IV and fentanyl ____ IV. DESCRIPTION OF PROCEDURE: After risks and benefits of procedure including the risk of hemorrhage, perforation requiring operation were discussed with the patient and family, informed consent was obtained. The patient was then placed in the left lateral decubitus position. Parenteral analgesia was then administered throughout the procedure. The endoscope was then advanced into the esophagus, stomach, and first and second portions of duodenum. Once the patient was sedated, there was no evidence of esophagitis, varices or stricture within the esophagus. Large amount of retained blood was noted in the stomach. The duodenum was quickly cleared without evidence of retained ulcer, blood or additional pathology. Within the stomach, a large amount of retained blood was encountered. This was partially suctioned and an ulcer with a visible vessel ____ clot was then identified along the lesser curve. This was then cauterized and injected with epinephrine with cessation of bleeding. The scope was then straightened and withdrawn. The patient tolerated the procedure well without evidence of immediate complications. We will recommend PPI therapy, serial blood counts, n.p.o. for the next 48 hours and IR and surgical consultations for backup if the patient should rebleed for embolization of the left gastric artery and/or surgical oversew of surgery if this is unsuccessful. I would like to thank Dr. Funk for allowing us to consult and participate in this patient's care. TJ MARAVILLA MD DR: JOVI/richard JOB#: [id number] / [id number] MARTHA Fiore MD
[2016-06-18] MEDS: PANTOPRAZOLE SODIUM IV 80 MG in IV NORMAL SALINE 100ML 100 ML IV SCH (20:59)
[2016-06-18] MEDS: IV NORMAL SALINE 1000ML BAG 1,000 ML IV SCH (21:54)
[2016-06-19] VITALS (15 sets, daily range): BP systolic 95–118; BP diastolic 67–80
--- NOTE | 2016-06-19 04:20 | CONS ---
DATE OF CONSULTATION: 06/18/2016 REASON FOR CONSULTATION: Hematemesis, acute blood loss anemia, hemorrhagic shock. HISTORY OF PRESENT ILLNESS: A 45-year-old male with past medical history significant for organic heart disease, status post non-STEMI, history of hyperlipidemia, hypertension. He was admitted to [facility] after a syncopal episode. It so began this morning when he was in the bathroom when he felt he had to have the urge to have a bowel movement, subsequently went to the bathroom and passed some dark red and black blood. He subsequently became nauseated and episode of hematemesis and then passed out. Family heard this and subsequently brought him to the Emergency Room. He was found to have a hemoglobin in the low-10s, hypertensive. Consultation has been requested. He is a former drinker, having drank up to a pint of hard alcohol daily for 15 years. There is no family history of liver disease to the knowledge. He is also was on aspirin as risk factors for peptic ulcer disease. Weight and appetite have been stable. Via detention deputy, his daughter, no additional constitutional symptoms at the present time. PAST MEDICAL HISTORY: Non-STEMI, history of hyperlipidemia and hypertension. ALLERGIES: None. MEDICATIONS: Include aspirin 325 mg daily, atorvastatin 80 mg daily, lisinopril 5 mg daily, metoprolol 25 mg b.i.d., omega-3 fish oil 500 p.o. daily, Effient 10 mg daily. SOCIAL HISTORY: He is a former drinker and does not smoke. FAMILY HISTORY: Noncontributory. REVIEW OF SYSTEMS: Per records. PHYSICAL EXAMINATION: GENERAL: Reveals a well-nourished, well-developed male. VITAL SIGNS: Temperature is 98.2, pulse 90, respirations 18, blood pressure is 110/76 now, it was 95/60 on presentation. HEENT: Normocephalic and atraumatic head. Pupils and extraocular muscles not tested. Sclerae anicteric. NECK: Supple. LUNGS: Clear anteriorly. CARDIOVASCULAR: Reveals S1, S2 without S3, S4 or appreciable murmur. ABDOMEN: Soft abdomen, normal bowel sounds, without appreciable hepatosplenomegaly. EXTREMITIES: Reveals no cyanosis, clubbing, edema. LABORATORY STUDIES: Hemoglobin is 10.9, hematocrit 32.8, white count 8.4, platelet count is 245,000. Sodium 141, potassium 3.5, chloride 106, bicarbonate 25, BUN 42, creatinine 0.8, total bilirubin 0.3, glucose 187, calcium 7.3, direct bilirubin 0.1, AST of 30, ALT of 72, alkaline phosphatase 55. Ammonia is 57. CPK is 113. Total protein 5.9 and albumin 2.9. INR is 1.3. IMPRESSION: Acute blood loss anemia with hematemesis and melena. The etiology is to be determined. Differential includes NSAID induced ulcer from the aspirin, varices and portal hypertension with previous alcohol use, Mary-Yang tear, malignancy. Therefore, recommend admission, IV fluids, transfusional support to maintain hemoglobin greater than 8 after blood pressure is stabilized with transfusional support, Sandostatin and PPI drips, any urgent upper endoscopy to further assess symptoms. Risks and benefits of procedure have been discussed with the patient and family including the risk of hemorrhage or perforation. The patient's daughter has also been informed of the mortality rates with the NSAID-induced upper GI bleed ranging from approximately 20%-33% with variceal liver disease ____. She acknowledges this and wishes to have us proceed urgently at this time. TJ MARAVILLA MD DR: JOVI/richard JOB#: [id number] / [id number] MARTHA Fiore MD
[2016-06-19] MEDS: PANTOPRAZOLE SODIUM IV 80 MG in IV NORMAL SALINE 100ML 100 ML IV SCH ×2 (05:33→16:19)
[2016-06-19] MEDS: IV NORMAL SALINE 1000ML BAG 1,000 ML IV SCH ×4 (05:34→22:56)
[2016-06-19 06:38] LABS: BASO # 0.1 x10^3/uL (0.0-0.2); BASO % 1 % (0-3); EOS % 2 % (0-3); HEMATOCRIT 35.4 % (39.0-53.0); HEMOGLOBIN 11.8 g/dL (13.0-17.5); LYMPH # 2.2 x10^3/uL (1.0-4.8); LYMPH % 23 % (24-48); MEAN CORPUSCULAR HEMOGLOBIN 30 pg (25-35); MEAN CORPUSCULAR HGB CONC 33 g/dL (31-37); MEAN CORPUSCULAR VOLUME 89 fL (79-100); MONO % 6 % (0-9); NEUT % 68 % (31-73); PLATELET COUNT 197 x10^3/uL (140-400); RED BLOOD COUNT 3.99 x10^6/uL (4.30-5.70); RED CELL DISTRIBUTION WIDTH 14.6 % (11.5-14.5); WHITE BLOOD COUNT 9.4 x10^3/uL (4.0-11.0)
[2016-06-19 06:53] LABS: INR 0.9 (0.8-1.1); PROTHROMBIN TIME PATIENT 11.6 SEC (11.7-14.0)
[2016-06-19 06:56] LABS: ALBUMIN 2.9 g/dL (3.4-5.0); ALBUMIN/GLOBULIN RATIO 0.9 (1.0-1.7); CREATININE 0.7 mg/dL (0.7-1.3); POTASSIUM 3.7 mmol/L (3.5-5.1); TOTAL BILIRUBIN 0.5 mg/dL (0.2-1.0)
[2016-06-19] MEDS: INSULIN ASPART 300 UNITS/3 ML INSULN.PEN SQ SCH ×3 (08:00→17:00)
--- NOTE | 2016-06-19 08:04 | PDOC2 ---
ELOY SMITH Maninder ORTHO NURSE 06/19/16 0804: CONSULT Date of Consult Date of Consult DATE: 06/19/16 TIME: 08:00 Reason for Consult Reason for Consult: GI bleed Referring Physician Referring Physician: Dr Lyman Identification/Chief Complaint Chief Complaint hematemesis Source Source: Chart review, Patient History of Present Illness Reason for Visit: Presented with syncope and hematemesis. Associated chest pain. Underwent endoscopic and gastric ulcer found, epi/cautery done. Currently no syncope or signs of ongoing bleeding No thai, family present and interpreted Past Medical History Cardiovascular: No pertinent hx Pulmonary: No pertinent hx GI: Other Renal/: No pertinent hx Endocrine: No pertinent hx Past Surgical History Past Surgical History: Appendectomy Family History Family History: No Significant Social History No ALCOHOL: occassional Drugs: None Current Problem List Problem List Problems Medical Problems: (1) GI bleed Status: Acute Current Medications Current Medications Current Medications Sodium Chloride 1,000 ml @ 1,000 mls/hr 1X ONCE IV Last administered on 08:06; Start 06/18/16 at 08:00; Stop 06/18/16 at 08:59; Status DC Norepinephrine Bitartrate 250 ml @ 0 mls/hr 1X ONCE IV Last administered on 08:09; Start 06/18/16 at 08:00; Stop 06/18/16 at 08:03; Status DC Pantoprazole Sodium 80 mg/ Sodium Chloride 100 ml @ 10 mls/hr 1X ONCE IV Last administered on 06/18/16 13:25; Start 06/18/16 at 08:00; Stop 06/18/16 at 17: 59; Status DC Octreotide Acetate 500 mcg/ Sodium Chloride 101 ml @ 0 mls/hr CONT PRN IV SEE I /O RECORD Last administered on 06/18/16 09:27; Start 06/18/16 at 08:30; Stop 06/18 at 19:31; Status DC Ondansetron HCl (Zofran) 4 mg PRN Q8HRS PRN IV NAUSEA/VOMITING; Start 06/18/16 at 08:45; Stop 06/19/16 at 08:44 Midazolam HCl (Versed) 5 mg STK-MED ONCE .ROUTE ; Start 06/18/16 at 09:16; Stop 06/18/16 at 09:17; Status DC Fentanyl Citrate (Fentanyl 2ml Vial) 100 mcg STK-MED ONCE .ROUTE ; Start at 09:17; Stop 06/18/16 at 09:18; Status DC Diphenhydramine HCl (Benadryl) 50 mg STK-MED ONCE .ROUTE ; Start 06/18/16 at 09: 17; Stop 06/18/16 at 09:18; Status DC Midazolam HCl (Versed) 5 mg STK-MED ONCE .ROUTE ; Start 06/18/16 at 09:17; Stop 06/18/16 at 09:18; Status DC Fentanyl Citrate (Fentanyl 2ml Vial) 100 mcg STK-MED ONCE IV Last administered on 06/18/16 09:58; Start 06/18/16 at 09:58; Stop 06/18/16 at 10:31; Status DC Midazolam HCl (Versed) 5 mg STK-MED ONCE IV Last administered on 06/18/16 09:58 ; Start 06/18/16 at 09:58; Stop 06/18/16 at 10:31; Status DC Fentanyl Citrate (Fentanyl 2ml Vial) 100 mcg STK-MED ONCE IV Last administered on 06/18/16 10:00; Start 06/18/16 at 10:00; Stop 06/18/16 at 10:31; Status DC Midazolam HCl (Versed) 5 mg STK-MED ONCE IV Last administered on 06/18/16 10:00 ; Start 06/18/16 at 10:00; Stop 06/18/16 at 10:31; Status DC Fentanyl Citrate (Fentanyl 2ml Vial) 100 mcg STK-MED ONCE IV Last administered on 06/18/16 10:02; Start 06/18/16 at 10:02; Stop 06/18/16 at 10:31; Status DC Midazolam HCl (Versed) 5 mg STK-MED ONCE IV Last administered on 06/18/16 10:02 ; Start 06/18/16 at 10:02; Stop 06/18/16 at 10:31; Status DC Fentanyl Citrate (Fentanyl 2ml Vial) 100 mcg STK-MED ONCE IV Last administered on 06/18/16 10:11; Start 06/18/16 at 10:11; Stop 06/18/16 at 10:31; Status DC Midazolam HCl (Versed) 5 mg STK-MED ONCE IV Last administered on 06/18/16 10:11 ; Start 06/18/16 at 10:11; Stop 06/18/16 at 10:31; Status DC Fentanyl Citrate (Fentanyl 2ml Vial) 100 mcg STK-MED ONCE IV Last administered on 06/18/16 10:13; Start 06/18/16 at 10:13; Stop 06/18/16 at 10:31; Status DC Midazolam HCl (Versed) 5 mg STK-MED ONCE IV Last administered on 06/18/16 10:13 ; Start 06/18/16 at 10:13; Stop 06/18/16 at 10:31; Status DC Epinephrine HCl (Adrenalin) 1 mg STK-MED ONCE SQ Last administered on 06/18/16 10:10; Start 06/18/16 at 10:10; Stop 06/18/16 at 10:52; Status DC Epinephrine HCl (Epinephrine Syringe) 1 mg STK-MED ONCE .ROUTE ; Start 06/18/16 at 10:57; Stop 06/18/16 at 10:58; Status DC Insulin Aspart (Novolog) 0-7 UNITS TIDWMEALS SQ ; Start 06/18/16 at 17:00 Dextrose (Dextrose 50%-Water Syringe) 12.5 gm PRN Q15MIN PRN IV SEE COMMENTS; Start 06/18/16 at 15:15 Potassium Chloride 100 ml @ 100 mls/hr Q1H IV Last administered on 06/18/16 19 :02; Start 06/18/16 at 16:00; Stop 06/18/16 at 17:59; Status DC Fentanyl Citrate (Fentanyl 2ml Vial) 50 mcg PRN Q2HR PRN IV PAIN; Start at 16:15 Sodium Chloride 1,000 ml @ 125 mls/hr Q8H IV Last administered on 06/19/16 05: 34; Start 06/18/16 at 20:00 Pantoprazole Sodium 80 mg/ Sodium Chloride 100 ml @ 10 mls/hr Q10H IV Last administered on 06/19/16 05:33; Start 06/18/16 at 23:00 Active Scripts Active Metoprolol Tartrate 25 Mg Tablet 1 Tab PO BID Lipitor (Atorvastatin Calcium) 80 Mg Tablet 1 Tab PO DAILY Effient (Prasugrel Hcl) 10 Mg Tablet 1 Tab PO DAILY Allergies Allergies: Coded Allergies: No Known Drug Allergies (Unverified , 07/11/15) ROS General: No: Chills, Other (fevers) PSYCHOLOGICAL ROS: No: Anxiety, Depression Eyes: No Blurry vision HEENT: No: Heacaches, Sore Throat Hematological and Lymphatic: YES: Bleeding Problems, Other (see hpi), No: Blood Clots Respiratory: No: Cough, SOB with excertion Cardiovascular: No Chest Pain, No Palpitations Gastrointestinal: No Nausea, No Vomiting Genitourinary: No Dysuria, No Hematuria Musculoskeletal: No Joint Pain, No Muscle Pain Neurological: No Confusion, No Numbness/Tingling Skin: No Pruritus, No Rash Physical Exam General: Alert, Oriented X3, Cooperative, No acute distress HEENT: PERRLA, Mucous membr. moist/pink Lungs: Clear to auscultation, Normal air movement Heart: Regular rate, Normal S1, Normal S2, No murmurs Abdomen: Soft, Other (ND, NTTP, lap scars present ) Extremities: No clubbing, No cyanosis Skin: No rashes, No breakdown Neuro: Normal gait, Normal speech Psych/Mental Status: Mental status NL, Mood NL MUSCULOSKELETAL: No deformity, No swelling Vitals VITALS Vital Signs Date Time Temp Pulse Resp B/P (MAP) Pulse Ox O2 Delivery O2 Flow Rate FiO2 06/19/16 06:00 83 18 112/74 (87) 97 Room Air 06/19/16 04:00 98.7 98.7 06/18/16 10:53 3.0 Labs Labs Laboratory Tests Test 06/18/16 07:42 06/18/16 08:06 06/18/16 12:57 06/18/16 16:00 White Blood Count 8.4 x10^3/uL (4.0-11.0) 11.9 x10^3/uL (4.0-11.0) Red Blood Count 3.72 x10^6/uL (4.30-5.70) 4.23 x10^6/uL (4.30-5.70) Hemoglobin 10.9 g/dL (13.0-17.5) 12.5 g/dL (13.0-17.5) Hematocrit 33.8 % (39.0-53.0) 36.7 % (39.0-53.0) Mean Corpuscular Volume 91 fL (79-100) 87 fL (79-100) Mean Corpuscular Hemoglobin 29 pg (25-35) 30 pg (25-35) Mean Corpuscular Hemoglobin Concent 32 g/dL (31-37) 34 g/dL (31-37) Red Cell Distribution Width 13.7 % (11.5-14.5) 14.3 % (11.5-14.5) Platelet Count 245 x10^3/uL (140-400) 230 x10^3/uL (140-400) Neutrophils (%) (Auto) 54 % (31-73) 77 % (31-73) Lymphocytes (%) (Auto) 35 % (24-48) 17 % (24-48) Monocytes (%) (Auto) 6 % (0-9) 6 % (0-9) Eosinophils (%) (Auto) 5 % (0-3) 0 % (0-3) Basophils (%) (Auto) 1 % (0-3) 0 % (0-3) Neutrophils # (Auto) 4.5 x10^3uL (1.8-7.7) 9.2 x10^3uL (1.8-7.7) Lymphocytes # (Auto) 3.0 x10^3/uL (1.0-4.8) 2.0 x10^3/uL (1.0-4.8) Monocytes # (Auto) 0.5 x10^3/uL (0.0-1.1) 0.7 x10^3/uL (0.0-1.1) Eosinophils # (Auto) 0.4 x10^3/uL (0.0-0.7) 0.0 x10^3/uL (0.0-0.7) Basophils # (Auto) 0.1 x10^3/uL (0.0-0.2) 0.0 x10^3/uL (0.0-0.2) Prothrombin Time 15.0 SEC (11.7-14.0) Prothromb Time International Ratio 1.3 (0.8-1.1) Activated Partial Thromboplast Time 32 SEC (24-38) O2 Saturation 94 % (92-99) Arterial Blood pH 7.36 (7.35-7.45) Arterial Blood pCO2 at Patient Temp 35 mmHg (35-46) Arterial Blood pO2 at Patient Temp 80 mmHg (75-108) Arterial Blood HCO3 20 mmol/L (21-28) Arterial Blood Base Excess -5 mmol/L (-3-3) FiO2 21 Sodium Level 141 mmol/L (136-145) Potassium Level 3.5 mmol/L (3.5-5.1) Chloride Level 106 mmol/L (98-107) Carbon Dioxide Level 25 mmol/L (21-32) Anion Gap 10 (6-14) Blood Urea Nitrogen 42 mg/dL (8-26) Creatinine 0.8 mg/dL (0.7-1.3) Estimated GFR (Cockcroft-Gault) 104.5 Glucose Level 187 mg/dL (70-99) Calcium Level 7.3 mg/dL (8.5-10.1) Total Bilirubin 0.3 mg/dL (0.2-1.0) Direct Bilirubin 0.1 mg/dL (0.0-0.2) Aspartate Amino Transf (AST/SGOT) 30 U/L (15-37) Alanine Aminotransferase (ALT/SGPT) 72 U/L (16-63) Alkaline Phosphatase 55 U/L (46-116) Ammonia 57 mcmol/L (11-34) Creatine Kinase 113 U/L (39-308) Creatine Kinase MB (Mass) 0.9 ng/mL (0.0-3.6) Creatine Kinase MB Relative Index 0.8 % (0-4) Troponin I Quantitative 0.020 ng/mL (0.000-0.055) Total Protein 5.9 g/dL (6.4-8.2) Albumin 2.9 g/dL (3.4-5.0) Stool Occult Blood Positive (NEG) Nasal Screen MRSA (PCR) Negative (Negative) Test 06/18/16 17:20 06/19/16 05:00 Glucose (Fingerstick) 80 mg/dL (70-99) White Blood Count 9.4 x10^3/uL (4.0-11.0) Red Blood Count 3.99 x10^6/uL (4.30-5.70) Hemoglobin 11.8 g/dL (13.0-17.5) Hematocrit 35.4 % (39.0-53.0) Mean Corpuscular Volume 89 fL (79-100) Mean Corpuscular Hemoglobin 30 pg (25-35) Mean Corpuscular Hemoglobin Concent 33 g/dL (31-37) Red Cell Distribution Width 14.6 % (11.5-14.5) Platelet Count 197 x10^3/uL (140-400) Neutrophils (%) (Auto) 68 % (31-73) Lymphocytes (%) (Auto) 23 % (24-48) Monocytes (%) (Auto) 6 % (0-9) Eosinophils (%) (Auto) 2 % (0-3) Basophils (%) (Auto) 1 % (0-3) Neutrophils # (Auto) 6.4 x10^3uL (1.8-7.7) Lymphocytes # (Auto) 2.2 x10^3/uL (1.0-4.8) Monocytes # (Auto) 0.5 x10^3/uL (0.0-1.1) Eosinophils # (Auto) 0.2 x10^3/uL (0.0-0.7) Basophils # (Auto) 0.1 x10^3/uL (0.0-0.2) Prothrombin Time 11.6 SEC (11.7-14.0) Prothromb Time International Ratio 0.9 (0.8-1.1) Sodium Level 141 mmol/L (136-145) Potassium Level 3.7 mmol/L (3.5-5.1) Chloride Level 109 mmol/L (98-107) Carbon Dioxide Level 23 mmol/L (21-32) Anion Gap 9 (6-14) Blood Urea Nitrogen 20 mg/dL (8-26) Creatinine 0.7 mg/dL (0.7-1.3) Estimated GFR (Cockcroft-Gault) 122.0 BUN/Creatinine Ratio 29 (6-20) Glucose Level 104 mg/dL (70-99) Calcium Level 8.0 mg/dL (8.5-10.1) Total Bilirubin 0.5 mg/dL (0.2-1.0) Aspartate Amino Transf (AST/SGOT) 17 U/L (15-37) Alanine Aminotransferase (ALT/SGPT) 53 U/L (16-63) Alkaline Phosphatase 48 U/L (46-116) Total Protein 6.0 g/dL (6.4-8.2) Albumin 2.9 g/dL (3.4-5.0) Albumin/Globulin Ratio 0.9 (1.0-1.7) Laboratory Tests Test 06/18/16 08:06 06/18/16 12:57 06/18/16 16:00 06/18/16 17:20 Stool Occult Blood Positive (NEG) Nasal Screen MRSA (PCR) Negative (Negative) White Blood Count 11.9 x10^3/uL (4.0-11.0) Red Blood Count 4.23 x10^6/uL (4.30-5.70) Hemoglobin 12.5 g/dL (13.0-17.5) Hematocrit 36.7 % (39.0-53.0) Mean Corpuscular Volume 87 fL (79-100) Mean Corpuscular Hemoglobin 30 pg (25-35) Mean Corpuscular Hemoglobin Concent 34 g/dL (31-37) Red Cell Distribution Width 14.3 % (11.5-14.5) Platelet Count 230 x10^3/uL (140-400) Neutrophils (%) (Auto) 77 % (31-73) Lymphocytes (%) (Auto) 17 % (24-48) Monocytes (%) (Auto) 6 % (0-9) Eosinophils (%) (Auto) 0 % (0-3) Basophils (%) (Auto) 0 % (0-3) Neutrophils # (Auto) 9.2 x10^3uL (1.8-7.7) Lymphocytes # (Auto) 2.0 x10^3/uL (1.0-4.8) Monocytes # (Auto) 0.7 x10^3/uL (0.0-1.1) Eosinophils # (Auto) 0.0 x10^3/uL (0.0-0.7) Basophils # (Auto) 0.0 x10^3/uL (0.0-0.2) Glucose (Fingerstick) 80 mg/dL (70-99) Test 06/19/16 05:00 White Blood Count 9.4 x10^3/uL (4.0-11.0) Red Blood Count 3.99 x10^6/uL (4.30-5.70) Hemoglobin 11.8 g/dL (13.0-17.5) Hematocrit 35.4 % (39.0-53.0) Mean Corpuscular Volume 89 fL (79-100) Mean Corpuscular Hemoglobin 30 pg (25-35) Mean Corpuscular Hemoglobin Concent 33 g/dL (31-37) Red Cell Distribution Width 14.6 % (11.5-14.5) Platelet Count 197 x10^3/uL (140-400) Neutrophils (%) (Auto) 68 % (31-73) Lymphocytes (%) (Auto) 23 % (24-48) Monocytes (%) (Auto) 6 % (0-9) Eosinophils (%) (Auto) 2 % (0-3) Basophils (%) (Auto) 1 % (0-3) Neutrophils # (Auto) 6.4 x10^3uL (1.8-7.7) Lymphocytes # (Auto) 2.2 x10^3/uL (1.0-4.8) Monocytes # (Auto) 0.5 x10^3/uL (0.0-1.1) Eosinophils # (Auto) 0.2 x10^3/uL (0.0-0.7) Basophils # (Auto) 0.1 x10^3/uL (0.0-0.2) Prothrombin Time 11.6 SEC (11.7-14.0) Prothromb Time International Ratio 0.9 (0.8-1.1) Sodium Level 141 mmol/L (136-145) Potassium Level 3.7 mmol/L (3.5-5.1) Chloride Level 109 mmol/L (98-107) Carbon Dioxide Level 23 mmol/L (21-32) Anion Gap 9 (6-14) Blood Urea Nitrogen 20 mg/dL (8-26) Creatinine 0.7 mg/dL (0.7-1.3) Estimated GFR (Cockcroft-Gault) 122.0 BUN/Creatinine Ratio 29 (6-20) Glucose Level 104 mg/dL (70-99) Calcium Level 8.0 mg/dL (8.5-10.1) Total Bilirubin 0.5 mg/dL (0.2-1.0) Aspartate Amino Transf (AST/SGOT) 17 U/L (15-37) Alanine Aminotransferase (ALT/SGPT) 53 U/L (16-63) Alkaline Phosphatase 48 U/L (46-116) Total Protein 6.0 g/dL (6.4-8.2) Albumin 2.9 g/dL (3.4-5.0) Albumin/Globulin Ratio 0.9 (1.0-1.7) Assessment/Plan Assessment/Plan Gastric ulcer, s/p endoscopy on PPI hgb stable observation for signs of rebleed no surgical plans NINFA ZAMAN MD 06/19/16 1200: CONSULT Allergies Allergies: Coded Allergies: No Known Drug Allergies (Unverified , 07/11/15) Assessment/Plan Assessment/Plan Patient seen and examined. Denies pain. Abd soft, NT Agree with Zoë's assessment and plan. ELOY SMITH APRN June 19, 2016 08:04 NINFA ZAMAN MD June 19, 2016 12:00
--- NOTE | 2016-06-19 10:59 | PDOC ---
PROGRESS NOTES Chief Complaint Chief Complaint hematemesis Acute blood loss anemia, GI bleed, upper w/ gastric ulceration elevated BUN from gastric blood moderate malnutrition possible cirrhosis of liver, admit to ICU protonix gtt and octreotide History of Present Illness History of Present Illness PER ENDO, bleeding gastric ulcer s/p cautery /epi injection 8 cc lesser curve with visible vessel no change, hgb stable he feels well no pain Vitals Vitals Vital Signs Date Time Temp Pulse Resp B/P (MAP) Pulse Ox O2 Delivery O2 Flow Rate FiO2 06/19/16 08:00 Room Air 06/19/16 06:00 83 18 112/74 (87) 97 06/19/16 04:00 98.7 98.7 06/18/16 10:53 3.0 Physical Exam General: Alert, Oriented X3, Cooperative, No acute distress Heart: Regular rate, Normal S1, Normal S2, No murmurs Lungs: Clear Abdomen: Soft, Other (ND, NTTP, lap scars present ) Extremities: No clubbing, No cyanosis Skin: No rashes, No breakdown Labs LABS Laboratory Tests Test 06/18/16 12:57 06/18/16 16:00 06/18/16 17:20 06/19/16 05:00 Nasal Screen MRSA (PCR) Negative (Negative) White Blood Count 11.9 x10^3/uL (4.0-11.0) 9.4 x10^3/uL (4.0-11.0) Red Blood Count 4.23 x10^6/uL (4.30-5.70) 3.99 x10^6/uL (4.30-5.70) Hemoglobin 12.5 g/dL (13.0-17.5) 11.8 g/dL (13.0-17.5) Hematocrit 36.7 % (39.0-53.0) 35.4 % (39.0-53.0) Mean Corpuscular Volume 87 fL (79-100) 89 fL (79-100) Mean Corpuscular Hemoglobin 30 pg (25-35) 30 pg (25-35) Mean Corpuscular Hemoglobin Concent 34 g/dL (31-37) 33 g/dL (31-37) Red Cell Distribution Width 14.3 % (11.5-14.5) 14.6 % (11.5-14.5) Platelet Count 230 x10^3/uL (140-400) 197 x10^3/uL (140-400) Neutrophils (%) (Auto) 77 % (31-73) 68 % (31-73) Lymphocytes (%) (Auto) 17 % (24-48) 23 % (24-48) Monocytes (%) (Auto) 6 % (0-9) 6 % (0-9) Eosinophils (%) (Auto) 0 % (0-3) 2 % (0-3) Basophils (%) (Auto) 0 % (0-3) 1 % (0-3) Neutrophils # (Auto) 9.2 x10^3uL (1.8-7.7) 6.4 x10^3uL (1.8-7.7) Lymphocytes # (Auto) 2.0 x10^3/uL (1.0-4.8) 2.2 x10^3/uL (1.0-4.8) Monocytes # (Auto) 0.7 x10^3/uL (0.0-1.1) 0.5 x10^3/uL (0.0-1.1) Eosinophils # (Auto) 0.0 x10^3/uL (0.0-0.7) 0.2 x10^3/uL (0.0-0.7) Basophils # (Auto) 0.0 x10^3/uL (0.0-0.2) 0.1 x10^3/uL (0.0-0.2) Glucose (Fingerstick) 80 mg/dL (70-99) Prothrombin Time 11.6 SEC (11.7-14.0) Prothromb Time International Ratio 0.9 (0.8-1.1) Sodium Level 141 mmol/L (136-145) Potassium Level 3.7 mmol/L (3.5-5.1) Chloride Level 109 mmol/L (98-107) Carbon Dioxide Level 23 mmol/L (21-32) Anion Gap 9 (6-14) Blood Urea Nitrogen 20 mg/dL (8-26) Creatinine 0.7 mg/dL (0.7-1.3) Estimated GFR (Cockcroft-Gault) 122.0 BUN/Creatinine Ratio 29 (6-20) Glucose Level 104 mg/dL (70-99) Calcium Level 8.0 mg/dL (8.5-10.1) Total Bilirubin 0.5 mg/dL (0.2-1.0) Aspartate Amino Transf (AST/SGOT) 17 U/L (15-37) Alanine Aminotransferase (ALT/SGPT) 53 U/L (16-63) Alkaline Phosphatase 48 U/L (46-116) Total Protein 6.0 g/dL (6.4-8.2) Albumin 2.9 g/dL (3.4-5.0) Albumin/Globulin Ratio 0.9 (1.0-1.7) Assessment and Plan Assessmemt and Plan Problems Medical Problems: (1) GI bleed Status: Acute Problems: Comment Review of Relevant I have reviewed the following items antione (where applicable) has been applied. Labs Laboratory Tests Test 06/18/16 07:42 06/18/16 08:06 06/18/16 12:57 06/18/16 16:00 White Blood Count 8.4 x10^3/uL (4.0-11.0) 11.9 x10^3/uL (4.0-11.0) Red Blood Count 3.72 x10^6/uL (4.30-5.70) 4.23 x10^6/uL (4.30-5.70) Hemoglobin 10.9 g/dL (13.0-17.5) 12.5 g/dL (13.0-17.5) Hematocrit 33.8 % (39.0-53.0) 36.7 % (39.0-53.0) Mean Corpuscular Volume 91 fL (79-100) 87 fL (79-100) Mean Corpuscular Hemoglobin 29 pg (25-35) 30 pg (25-35) Mean Corpuscular Hemoglobin Concent 32 g/dL (31-37) 34 g/dL (31-37) Red Cell Distribution Width 13.7 % (11.5-14.5) 14.3 % (11.5-14.5) Platelet Count 245 x10^3/uL (140-400) 230 x10^3/uL (140-400) Neutrophils (%) (Auto) 54 % (31-73) 77 % (31-73) Lymphocytes (%) (Auto) 35 % (24-48) 17 % (24-48) Monocytes (%) (Auto) 6 % (0-9) 6 % (0-9) Eosinophils (%) (Auto) 5 % (0-3) 0 % (0-3) Basophils (%) (Auto) 1 % (0-3) 0 % (0-3) Neutrophils # (Auto) 4.5 x10^3uL (1.8-7.7) 9.2 x10^3uL (1.8-7.7) Lymphocytes # (Auto) 3.0 x10^3/uL (1.0-4.8) 2.0 x10^3/uL (1.0-4.8) Monocytes # (Auto) 0.5 x10^3/uL (0.0-1.1) 0.7 x10^3/uL (0.0-1.1) Eosinophils # (Auto) 0.4 x10^3/uL (0.0-0.7) 0.0 x10^3/uL (0.0-0.7) Basophils # (Auto) 0.1 x10^3/uL (0.0-0.2) 0.0 x10^3/uL (0.0-0.2) Prothrombin Time 15.0 SEC (11.7-14.0) Prothromb Time International Ratio 1.3 (0.8-1.1) Activated Partial Thromboplast Time 32 SEC (24-38) O2 Saturation 94 % (92-99) Arterial Blood pH 7.36 (7.35-7.45) Arterial Blood pCO2 at Patient Temp 35 mmHg (35-46) Arterial Blood pO2 at Patient Temp 80 mmHg (75-108) Arterial Blood HCO3 20 mmol/L (21-28) Arterial Blood Base Excess -5 mmol/L (-3-3) FiO2 21 Sodium Level 141 mmol/L (136-145) Potassium Level 3.5 mmol/L (3.5-5.1) Chloride Level 106 mmol/L (98-107) Carbon Dioxide Level 25 mmol/L (21-32) Anion Gap 10 (6-14) Blood Urea Nitrogen 42 mg/dL (8-26) Creatinine 0.8 mg/dL (0.7-1.3) Estimated GFR (Cockcroft-Gault) 104.5 Glucose Level 187 mg/dL (70-99) Calcium Level 7.3 mg/dL (8.5-10.1) Total Bilirubin 0.3 mg/dL (0.2-1.0) Direct Bilirubin 0.1 mg/dL (0.0-0.2) Aspartate Amino Transf (AST/SGOT) 30 U/L (15-37) Alanine Aminotransferase (ALT/SGPT) 72 U/L (16-63) Alkaline Phosphatase 55 U/L (46-116) Ammonia 57 mcmol/L (11-34) Creatine Kinase 113 U/L (39-308) Creatine Kinase MB (Mass) 0.9 ng/mL (0.0-3.6) Creatine Kinase MB Relative Index 0.8 % (0-4) Troponin I Quantitative 0.020 ng/mL (0.000-0.055) Total Protein 5.9 g/dL (6.4-8.2) Albumin 2.9 g/dL (3.4-5.0) Stool Occult Blood Positive (NEG) Nasal Screen MRSA (PCR) Negative (Negative) Test 06/18/16 17:20 06/19/16 05:00 Glucose (Fingerstick) 80 mg/dL (70-99) White Blood Count 9.4 x10^3/uL (4.0-11.0) Red Blood Count 3.99 x10^6/uL (4.30-5.70) Hemoglobin 11.8 g/dL (13.0-17.5) Hematocrit 35.4 % (39.0-53.0) Mean Corpuscular Volume 89 fL (79-100) Mean Corpuscular Hemoglobin 30 pg (25-35) Mean Corpuscular Hemoglobin Concent 33 g/dL (31-37) Red Cell Distribution Width 14.6 % (11.5-14.5) Platelet Count 197 x10^3/uL (140-400) Neutrophils (%) (Auto) 68 % (31-73) Lymphocytes (%) (Auto) 23 % (24-48) Monocytes (%) (Auto) 6 % (0-9) Eosinophils (%) (Auto) 2 % (0-3) Basophils (%) (Auto) 1 % (0-3) Neutrophils # (Auto) 6.4 x10^3uL (1.8-7.7) Lymphocytes # (Auto) 2.2 x10^3/uL (1.0-4.8) Monocytes # (Auto) 0.5 x10^3/uL (0.0-1.1) Eosinophils # (Auto) 0.2 x10^3/uL (0.0-0.7) Basophils # (Auto) 0.1 x10^3/uL (0.0-0.2) Prothrombin Time 11.6 SEC (11.7-14.0) Prothromb Time International Ratio 0.9 (0.8-1.1) Sodium Level 141 mmol/L (136-145) Potassium Level 3.7 mmol/L (3.5-5.1) Chloride Level 109 mmol/L (98-107) Carbon Dioxide Level 23 mmol/L (21-32) Anion Gap 9 (6-14) Blood Urea Nitrogen 20 mg/dL (8-26) Creatinine 0.7 mg/dL (0.7-1.3) Estimated GFR (Cockcroft-Gault) 122.0 BUN/Creatinine Ratio 29 (6-20) Glucose Level 104 mg/dL (70-99) Calcium Level 8.0 mg/dL (8.5-10.1) Total Bilirubin 0.5 mg/dL (0.2-1.0) Aspartate Amino Transf (AST/SGOT) 17 U/L (15-37) Alanine Aminotransferase (ALT/SGPT) 53 U/L (16-63) Alkaline Phosphatase 48 U/L (46-116) Total Protein 6.0 g/dL (6.4-8.2) Albumin 2.9 g/dL (3.4-5.0) Albumin/Globulin Ratio 0.9 (1.0-1.7) Laboratory Tests Test 06/18/16 12:57 06/18/16 16:00 06/18/16 17:20 06/19/16 05:00 Nasal Screen MRSA (PCR) Negative (Negative) White Blood Count 11.9 x10^3/uL (4.0-11.0) 9.4 x10^3/uL (4.0-11.0) Red Blood Count 4.23 x10^6/uL (4.30-5.70) 3.99 x10^6/uL (4.30-5.70) Hemoglobin 12.5 g/dL (13.0-17.5) 11.8 g/dL (13.0-17.5) Hematocrit 36.7 % (39.0-53.0) 35.4 % (39.0-53.0) Mean Corpuscular Volume 87 fL (79-100) 89 fL (79-100) Mean Corpuscular Hemoglobin 30 pg (25-35) 30 pg (25-35) Mean Corpuscular Hemoglobin Concent 34 g/dL (31-37) 33 g/dL (31-37) Red Cell Distribution Width 14.3 % (11.5-14.5) 14.6 % (11.5-14.5) Platelet Count 230 x10^3/uL (140-400) 197 x10^3/uL (140-400) Neutrophils (%) (Auto) 77 % (31-73) 68 % (31-73) Lymphocytes (%) (Auto) 17 % (24-48) 23 % (24-48) Monocytes (%) (Auto) 6 % (0-9) 6 % (0-9) Eosinophils (%) (Auto) 0 % (0-3) 2 % (0-3) Basophils (%) (Auto) 0 % (0-3) 1 % (0-3) Neutrophils # (Auto) 9.2 x10^3uL (1.8-7.7) 6.4 x10^3uL (1.8-7.7) Lymphocytes # (Auto) 2.0 x10^3/uL (1.0-4.8) 2.2 x10^3/uL (1.0-4.8) Monocytes # (Auto) 0.7 x10^3/uL (0.0-1.1) 0.5 x10^3/uL (0.0-1.1) Eosinophils # (Auto) 0.0 x10^3/uL (0.0-0.7) 0.2 x10^3/uL (0.0-0.7) Basophils # (Auto) 0.0 x10^3/uL (0.0-0.2) 0.1 x10^3/uL (0.0-0.2) Glucose (Fingerstick) 80 mg/dL (70-99) Prothrombin Time 11.6 SEC (11.7-14.0) Prothromb Time International Ratio 0.9 (0.8-1.1) Sodium Level 141 mmol/L (136-145) Potassium Level 3.7 mmol/L (3.5-5.1) Chloride Level 109 mmol/L (98-107) Carbon Dioxide Level 23 mmol/L (21-32) Anion Gap 9 (6-14) Blood Urea Nitrogen 20 mg/dL (8-26) Creatinine 0.7 mg/dL (0.7-1.3) Estimated GFR (Cockcroft-Gault) 122.0 BUN/Creatinine Ratio 29 (6-20) Glucose Level 104 mg/dL (70-99) Calcium Level 8.0 mg/dL (8.5-10.1) Total Bilirubin 0.5 mg/dL (0.2-1.0) Aspartate Amino Transf (AST/SGOT) 17 U/L (15-37) Alanine Aminotransferase (ALT/SGPT) 53 U/L (16-63) Alkaline Phosphatase 48 U/L (46-116) Total Protein 6.0 g/dL (6.4-8.2) Albumin 2.9 g/dL (3.4-5.0) Albumin/Globulin Ratio 0.9 (1.0-1.7) Medications Current Medications Sodium Chloride 1,000 ml @ 1,000 mls/hr 1X ONCE IV Last administered on 08:06; Start 06/18/16 at 08:00; Stop 06/18/16 at 08:59; Status DC Norepinephrine Bitartrate 250 ml @ 0 mls/hr 1X ONCE IV Last administered on 08:09; Start 06/18/16 at 08:00; Stop 06/18/16 at 08:03; Status DC Pantoprazole Sodium 80 mg/ Sodium Chloride 100 ml @ 10 mls/hr 1X ONCE IV Last administered on 06/18/16 13:25; Start 06/18/16 at 08:00; Stop 06/18/16 at 17: 59; Status DC Octreotide Acetate 500 mcg/ Sodium Chloride 101 ml @ 0 mls/hr CONT PRN IV SEE I /O RECORD Last administered on 06/18/16 09:27; Start 06/18/16 at 08:30; Stop 06/18 at 19:31; Status DC Ondansetron HCl (Zofran) 4 mg PRN Q8HRS PRN IV NAUSEA/VOMITING; Start 06/18/16 at 08:45; Stop 06/19/16 at 08:44; Status DC Midazolam HCl (Versed) 5 mg STK-MED ONCE .ROUTE ; Start 06/18/16 at 09:16; Stop 06/18/16 at 09:17; Status DC Fentanyl Citrate (Fentanyl 2ml Vial) 100 mcg STK-MED ONCE .ROUTE ; Start at 09:17; Stop 06/18/16 at 09:18; Status DC Diphenhydramine HCl (Benadryl) 50 mg STK-MED ONCE .ROUTE ; Start 06/18/16 at 09: 17; Stop 06/18/16 at 09:18; Status DC Midazolam HCl (Versed) 5 mg STK-MED ONCE .ROUTE ; Start 06/18/16 at 09:17; Stop 06/18/16 at 09:18; Status DC Fentanyl Citrate (Fentanyl 2ml Vial) 100 mcg STK-MED ONCE IV Last administered on 06/18/16 09:58; Start 06/18/16 at 09:58; Stop 06/18/16 at 10:31; Status DC Midazolam HCl (Versed) 5 mg STK-MED ONCE IV Last administered on 06/18/16 09:58 ; Start 06/18/16 at 09:58; Stop 06/18/16 at 10:31; Status DC Fentanyl Citrate (Fentanyl 2ml Vial) 100 mcg STK-MED ONCE IV Last administered on 06/18/16 10:00; Start 06/18/16 at 10:00; Stop 06/18/16 at 10:31; Status DC Midazolam HCl (Versed) 5 mg STK-MED ONCE IV Last administered on 06/18/16 10:00 ; Start 06/18/16 at 10:00; Stop 06/18/16 at 10:31; Status DC Fentanyl Citrate (Fentanyl 2ml Vial) 100 mcg STK-MED ONCE IV Last administered on 06/18/16 10:02; Start 06/18/16 at 10:02; Stop 06/18/16 at 10:31; Status DC Midazolam HCl (Versed) 5 mg STK-MED ONCE IV Last administered on 06/18/16 10:02 ; Start 06/18/16 at 10:02; Stop 06/18/16 at 10:31; Status DC Fentanyl Citrate (Fentanyl 2ml Vial) 100 mcg STK-MED ONCE IV Last administered on 06/18/16 10:11; Start 06/18/16 at 10:11; Stop 06/18/16 at 10:31; Status DC Midazolam HCl (Versed) 5 mg STK-MED ONCE IV Last administered on 06/18/16 10:11 ; Start 06/18/16 at 10:11; Stop 06/18/16 at 10:31; Status DC Fentanyl Citrate (Fentanyl 2ml Vial) 100 mcg STK-MED ONCE IV Last administered on 06/18/16 10:13; Start 06/18/16 at 10:13; Stop 06/18/16 at 10:31; Status DC Midazolam HCl (Versed) 5 mg STK-MED ONCE IV Last administered on 06/18/16 10:13 ; Start 06/18/16 at 10:13; Stop 06/18/16 at 10:31; Status DC Epinephrine HCl (Adrenalin) 1 mg STK-MED ONCE SQ Last administered on 06/18/16 10:10; Start 06/18/16 at 10:10; Stop 06/18/16 at 10:52; Status DC Epinephrine HCl (Epinephrine Syringe) 1 mg STK-MED ONCE .ROUTE ; Start 06/18/16 at 10:57; Stop 06/18/16 at 10:58; Status DC Insulin Aspart (Novolog) 0-7 UNITS TIDWMEALS SQ ; Start 06/18/16 at 17:00 Dextrose (Dextrose 50%-Water Syringe) 12.5 gm PRN Q15MIN PRN IV SEE COMMENTS; Start 06/18/16 at 15:15 Potassium Chloride 100 ml @ 100 mls/hr Q1H IV Last administered on 06/18/16 19 :02; Start 06/18/16 at 16:00; Stop 06/18/16 at 17:59; Status DC Fentanyl Citrate (Fentanyl 2ml Vial) 50 mcg PRN Q2HR PRN IV PAIN; Start at 16:15 Sodium Chloride 1,000 ml @ 125 mls/hr Q8H IV Last administered on 06/19/16 05: 34; Start 06/18/16 at 20:00 Pantoprazole Sodium 80 mg/ Sodium Chloride 100 ml @ 10 mls/hr Q10H IV Last administered on 06/19/16 05:33; Start 06/18/16 at 23:00 Active Scripts Active Metoprolol Tartrate 25 Mg Tablet 1 Tab PO BID Lipitor (Atorvastatin Calcium) 80 Mg Tablet 1 Tab PO DAILY Effient (Prasugrel Hcl) 10 Mg Tablet 1 Tab PO DAILY Vitals/I & O Vital Sign - Last 24 Hours 06/18/16 06/18/16 06/18/16 06/18/16 11:30 11:30 12:00 13:00 Temp 98.5 98.5 98.5 98.5 Pulse 103 103 104 96 Resp 18 18 18 16 B/P (MAP) 154/102 (119) 154/102 (119) 147/103 (118) 147/94 (111) Pulse Ox 98 98 97 98 O2 Delivery Room Air Room Air Room Air Room Air 06/18/16 06/18/16 06/18/16 06/18/16 14:00 15:00 16:00 17:00 Temp 99.7 99.7 Pulse 94 105 102 102 Resp 20 20 20 B/P (MAP) 125/84 (98) 128/82 (97) 104/61 (75) 117/66 (83) Pulse Ox 98 99 98 96 O2 Delivery Room Air Room Air Room Air Room Air 06/18/16 06/18/16 06/18/16 06/18/16 18:00 19:00 20:00 21:00 Temp 99.4 99.4 Pulse 88 106 94 96 Resp 18 18 18 18 B/P (MAP) 104/72 (83) 111/74 (86) 119/83 (95) 114/74 (87) Pulse Ox 98 97 98 98 O2 Delivery Room Air Room Air Room Air Room Air 06/18/16 06/18/16 06/19/16 06/19/16 22:00 23:00 00:00 01:00 Temp 98.4 98.4 Pulse 96 96 84 88 Resp 18 18 18 18 B/P (MAP) 110/82 (91) 122/75 (91) 112/75 (87) 118/75 (89) Pulse Ox 96 97 96 96 O2 Delivery Room Air Room Air Room Air Room Air 06/19/16 06/19/16 06/19/16 06/19/16 02:00 03:00 04:00 04:00 Temp 98.7 98.7 Pulse 96 84 84 Resp 18 18 B/P (MAP) 112/71 (85) 97/67 (77) 95/71 (79) Pulse Ox 97 97 97 O2 Delivery Room Air Nasal Cannula Room Air Room Air 06/19/16 06/19/16 06/19/16 05:00 06:00 08:00 Pulse 80 83 Resp 18 18 B/P (MAP) 99/77 (84) 112/74 (87) Pulse Ox 97 97 O2 Delivery Room Air Room Air Room Air Intake and Output 06/18/16 06/18/16 06/19/16 15:00 23:00 07:00 Intake Total 1660 ml 0 ml 1950 ml Output Total 1000 ml 400 ml Balance 660 ml -400 ml 1950 ml MARTHA STONE MD June 19, 2016 10:59
--- NOTE | 2016-06-19 11:15 | PDOC ---
G I PROGRESS NOTE Reason for Follow-up Acute blood loss anemia Subjective Feeling better Physical Exam Lungs clear CV S1 S2 ABD +BS, soft, nontender Review of Relevant I have reviewed the following items antione (where applicable) has been applied. Labs Laboratory Tests Test 06/18/16 07:42 06/18/16 08:06 06/18/16 12:57 06/18/16 16:00 White Blood Count 8.4 x10^3/uL (4.0-11.0) 11.9 x10^3/uL (4.0-11.0) Red Blood Count 3.72 x10^6/uL (4.30-5.70) 4.23 x10^6/uL (4.30-5.70) Hemoglobin 10.9 g/dL (13.0-17.5) 12.5 g/dL (13.0-17.5) Hematocrit 33.8 % (39.0-53.0) 36.7 % (39.0-53.0) Mean Corpuscular Volume 91 fL (79-100) 87 fL (79-100) Mean Corpuscular Hemoglobin 29 pg (25-35) 30 pg (25-35) Mean Corpuscular Hemoglobin Concent 32 g/dL (31-37) 34 g/dL (31-37) Red Cell Distribution Width 13.7 % (11.5-14.5) 14.3 % (11.5-14.5) Platelet Count 245 x10^3/uL (140-400) 230 x10^3/uL (140-400) Neutrophils (%) (Auto) 54 % (31-73) 77 % (31-73) Lymphocytes (%) (Auto) 35 % (24-48) 17 % (24-48) Monocytes (%) (Auto) 6 % (0-9) 6 % (0-9) Eosinophils (%) (Auto) 5 % (0-3) 0 % (0-3) Basophils (%) (Auto) 1 % (0-3) 0 % (0-3) Neutrophils # (Auto) 4.5 x10^3uL (1.8-7.7) 9.2 x10^3uL (1.8-7.7) Lymphocytes # (Auto) 3.0 x10^3/uL (1.0-4.8) 2.0 x10^3/uL (1.0-4.8) Monocytes # (Auto) 0.5 x10^3/uL (0.0-1.1) 0.7 x10^3/uL (0.0-1.1) Eosinophils # (Auto) 0.4 x10^3/uL (0.0-0.7) 0.0 x10^3/uL (0.0-0.7) Basophils # (Auto) 0.1 x10^3/uL (0.0-0.2) 0.0 x10^3/uL (0.0-0.2) Prothrombin Time 15.0 SEC (11.7-14.0) Prothromb Time International Ratio 1.3 (0.8-1.1) Activated Partial Thromboplast Time 32 SEC (24-38) O2 Saturation 94 % (92-99) Arterial Blood pH 7.36 (7.35-7.45) Arterial Blood pCO2 at Patient Temp 35 mmHg (35-46) Arterial Blood pO2 at Patient Temp 80 mmHg (75-108) Arterial Blood HCO3 20 mmol/L (21-28) Arterial Blood Base Excess -5 mmol/L (-3-3) FiO2 21 Sodium Level 141 mmol/L (136-145) Potassium Level 3.5 mmol/L (3.5-5.1) Chloride Level 106 mmol/L (98-107) Carbon Dioxide Level 25 mmol/L (21-32) Anion Gap 10 (6-14) Blood Urea Nitrogen 42 mg/dL (8-26) Creatinine 0.8 mg/dL (0.7-1.3) Estimated GFR (Cockcroft-Gault) 104.5 Glucose Level 187 mg/dL (70-99) Calcium Level 7.3 mg/dL (8.5-10.1) Total Bilirubin 0.3 mg/dL (0.2-1.0) Direct Bilirubin 0.1 mg/dL (0.0-0.2) Aspartate Amino Transf (AST/SGOT) 30 U/L (15-37) Alanine Aminotransferase (ALT/SGPT) 72 U/L (16-63) Alkaline Phosphatase 55 U/L (46-116) Ammonia 57 mcmol/L (11-34) Creatine Kinase 113 U/L (39-308) Creatine Kinase MB (Mass) 0.9 ng/mL (0.0-3.6) Creatine Kinase MB Relative Index 0.8 % (0-4) Troponin I Quantitative 0.020 ng/mL (0.000-0.055) Total Protein 5.9 g/dL (6.4-8.2) Albumin 2.9 g/dL (3.4-5.0) Stool Occult Blood Positive (NEG) Nasal Screen MRSA (PCR) Negative (Negative) Test 06/18/16 17:20 06/19/16 05:00 Glucose (Fingerstick) 80 mg/dL (70-99) White Blood Count 9.4 x10^3/uL (4.0-11.0) Red Blood Count 3.99 x10^6/uL (4.30-5.70) Hemoglobin 11.8 g/dL (13.0-17.5) Hematocrit 35.4 % (39.0-53.0) Mean Corpuscular Volume 89 fL (79-100) Mean Corpuscular Hemoglobin 30 pg (25-35) Mean Corpuscular Hemoglobin Concent 33 g/dL (31-37) Red Cell Distribution Width 14.6 % (11.5-14.5) Platelet Count 197 x10^3/uL (140-400) Neutrophils (%) (Auto) 68 % (31-73) Lymphocytes (%) (Auto) 23 % (24-48) Monocytes (%) (Auto) 6 % (0-9) Eosinophils (%) (Auto) 2 % (0-3) Basophils (%) (Auto) 1 % (0-3) Neutrophils # (Auto) 6.4 x10^3uL (1.8-7.7) Lymphocytes # (Auto) 2.2 x10^3/uL (1.0-4.8) Monocytes # (Auto) 0.5 x10^3/uL (0.0-1.1) Eosinophils # (Auto) 0.2 x10^3/uL (0.0-0.7) Basophils # (Auto) 0.1 x10^3/uL (0.0-0.2) Prothrombin Time 11.6 SEC (11.7-14.0) Prothromb Time International Ratio 0.9 (0.8-1.1) Sodium Level 141 mmol/L (136-145) Potassium Level 3.7 mmol/L (3.5-5.1) Chloride Level 109 mmol/L (98-107) Carbon Dioxide Level 23 mmol/L (21-32) Anion Gap 9 (6-14) Blood Urea Nitrogen 20 mg/dL (8-26) Creatinine 0.7 mg/dL (0.7-1.3) Estimated GFR (Cockcroft-Gault) 122.0 BUN/Creatinine Ratio 29 (6-20) Glucose Level 104 mg/dL (70-99) Calcium Level 8.0 mg/dL (8.5-10.1) Total Bilirubin 0.5 mg/dL (0.2-1.0) Aspartate Amino Transf (AST/SGOT) 17 U/L (15-37) Alanine Aminotransferase (ALT/SGPT) 53 U/L (16-63) Alkaline Phosphatase 48 U/L (46-116) Total Protein 6.0 g/dL (6.4-8.2) Albumin 2.9 g/dL (3.4-5.0) Albumin/Globulin Ratio 0.9 (1.0-1.7) Laboratory Tests Test 06/18/16 12:57 06/18/16 16:00 06/18/16 17:20 06/19/16 05:00 Nasal Screen MRSA (PCR) Negative (Negative) White Blood Count 11.9 x10^3/uL (4.0-11.0) 9.4 x10^3/uL (4.0-11.0) Red Blood Count 4.23 x10^6/uL (4.30-5.70) 3.99 x10^6/uL (4.30-5.70) Hemoglobin 12.5 g/dL (13.0-17.5) 11.8 g/dL (13.0-17.5) Hematocrit 36.7 % (39.0-53.0) 35.4 % (39.0-53.0) Mean Corpuscular Volume 87 fL (79-100) 89 fL (79-100) Mean Corpuscular Hemoglobin 30 pg (25-35) 30 pg (25-35) Mean Corpuscular Hemoglobin Concent 34 g/dL (31-37) 33 g/dL (31-37) Red Cell Distribution Width 14.3 % (11.5-14.5) 14.6 % (11.5-14.5) Platelet Count 230 x10^3/uL (140-400) 197 x10^3/uL (140-400) Neutrophils (%) (Auto) 77 % (31-73) 68 % (31-73) Lymphocytes (%) (Auto) 17 % (24-48) 23 % (24-48) Monocytes (%) (Auto) 6 % (0-9) 6 % (0-9) Eosinophils (%) (Auto) 0 % (0-3) 2 % (0-3) Basophils (%) (Auto) 0 % (0-3) 1 % (0-3) Neutrophils # (Auto) 9.2 x10^3uL (1.8-7.7) 6.4 x10^3uL (1.8-7.7) Lymphocytes # (Auto) 2.0 x10^3/uL (1.0-4.8) 2.2 x10^3/uL (1.0-4.8) Monocytes # (Auto) 0.7 x10^3/uL (0.0-1.1) 0.5 x10^3/uL (0.0-1.1) Eosinophils # (Auto) 0.0 x10^3/uL (0.0-0.7) 0.2 x10^3/uL (0.0-0.7) Basophils # (Auto) 0.0 x10^3/uL (0.0-0.2) 0.1 x10^3/uL (0.0-0.2) Glucose (Fingerstick) 80 mg/dL (70-99) Prothrombin Time 11.6 SEC (11.7-14.0) Prothromb Time International Ratio 0.9 (0.8-1.1) Sodium Level 141 mmol/L (136-145) Potassium Level 3.7 mmol/L (3.5-5.1) Chloride Level 109 mmol/L (98-107) Carbon Dioxide Level 23 mmol/L (21-32) Anion Gap 9 (6-14) Blood Urea Nitrogen 20 mg/dL (8-26) Creatinine 0.7 mg/dL (0.7-1.3) Estimated GFR (Cockcroft-Gault) 122.0 BUN/Creatinine Ratio 29 (6-20) Glucose Level 104 mg/dL (70-99) Calcium Level 8.0 mg/dL (8.5-10.1) Total Bilirubin 0.5 mg/dL (0.2-1.0) Aspartate Amino Transf (AST/SGOT) 17 U/L (15-37) Alanine Aminotransferase (ALT/SGPT) 53 U/L (16-63) Alkaline Phosphatase 48 U/L (46-116) Total Protein 6.0 g/dL (6.4-8.2) Albumin 2.9 g/dL (3.4-5.0) Albumin/Globulin Ratio 0.9 (1.0-1.7) Medications Current Medications Sodium Chloride 1,000 ml @ 1,000 mls/hr 1X ONCE IV Last administered on 08:06; Start 06/18/16 at 08:00; Stop 06/18/16 at 08:59; Status DC Norepinephrine Bitartrate 250 ml @ 0 mls/hr 1X ONCE IV Last administered on 08:09; Start 06/18/16 at 08:00; Stop 06/18/16 at 08:03; Status DC Pantoprazole Sodium 80 mg/ Sodium Chloride 100 ml @ 10 mls/hr 1X ONCE IV Last administered on 06/18/16 13:25; Start 06/18/16 at 08:00; Stop 06/18/16 at 17: 59; Status DC Octreotide Acetate 500 mcg/ Sodium Chloride 101 ml @ 0 mls/hr CONT PRN IV SEE I /O RECORD Last administered on 06/18/16 09:27; Start 06/18/16 at 08:30; Stop 06/18 at 19:31; Status DC Ondansetron HCl (Zofran) 4 mg PRN Q8HRS PRN IV NAUSEA/VOMITING; Start 06/18/16 at 08:45; Stop 06/19/16 at 08:44; Status DC Midazolam HCl (Versed) 5 mg STK-MED ONCE .ROUTE ; Start 06/18/16 at 09:16; Stop 06/18/16 at 09:17; Status DC Fentanyl Citrate (Fentanyl 2ml Vial) 100 mcg STK-MED ONCE .ROUTE ; Start at 09:17; Stop 06/18/16 at 09:18; Status DC Diphenhydramine HCl (Benadryl) 50 mg STK-MED ONCE .ROUTE ; Start 06/18/16 at 09: 17; Stop 06/18/16 at 09:18; Status DC Midazolam HCl (Versed) 5 mg STK-MED ONCE .ROUTE ; Start 06/18/16 at 09:17; Stop 06/18/16 at 09:18; Status DC Fentanyl Citrate (Fentanyl 2ml Vial) 100 mcg STK-MED ONCE IV Last administered on 06/18/16 09:58; Start 06/18/16 at 09:58; Stop 06/18/16 at 10:31; Status DC Midazolam HCl (Versed) 5 mg STK-MED ONCE IV Last administered on 06/18/16 09:58 ; Start 06/18/16 at 09:58; Stop 06/18/16 at 10:31; Status DC Fentanyl Citrate (Fentanyl 2ml Vial) 100 mcg STK-MED ONCE IV Last administered on 06/18/16 10:00; Start 06/18/16 at 10:00; Stop 06/18/16 at 10:31; Status DC Midazolam HCl (Versed) 5 mg STK-MED ONCE IV Last administered on 06/18/16 10:00 ; Start 06/18/16 at 10:00; Stop 06/18/16 at 10:31; Status DC Fentanyl Citrate (Fentanyl 2ml Vial) 100 mcg STK-MED ONCE IV Last administered on 06/18/16 10:02; Start 06/18/16 at 10:02; Stop 06/18/16 at 10:31; Status DC Midazolam HCl (Versed) 5 mg STK-MED ONCE IV Last administered on 06/18/16 10:02 ; Start 06/18/16 at 10:02; Stop 06/18/16 at 10:31; Status DC Fentanyl Citrate (Fentanyl 2ml Vial) 100 mcg STK-MED ONCE IV Last administered on 06/18/16 10:11; Start 06/18/16 at 10:11; Stop 06/18/16 at 10:31; Status DC Midazolam HCl (Versed) 5 mg STK-MED ONCE IV Last administered on 06/18/16 10:11 ; Start 06/18/16 at 10:11; Stop 06/18/16 at 10:31; Status DC Fentanyl Citrate (Fentanyl 2ml Vial) 100 mcg STK-MED ONCE IV Last administered on 06/18/16 10:13; Start 06/18/16 at 10:13; Stop 06/18/16 at 10:31; Status DC Midazolam HCl (Versed) 5 mg STK-MED ONCE IV Last administered on 06/18/16 10:13 ; Start 06/18/16 at 10:13; Stop 06/18/16 at 10:31; Status DC Epinephrine HCl (Adrenalin) 1 mg STK-MED ONCE SQ Last administered on 06/18/16 10:10; Start 06/18/16 at 10:10; Stop 06/18/16 at 10:52; Status DC Epinephrine HCl (Epinephrine Syringe) 1 mg STK-MED ONCE .ROUTE ; Start 06/18/16 at 10:57; Stop 06/18/16 at 10:58; Status DC Insulin Aspart (Novolog) 0-7 UNITS TIDWMEALS SQ ; Start 06/18/16 at 17:00 Dextrose (Dextrose 50%-Water Syringe) 12.5 gm PRN Q15MIN PRN IV SEE COMMENTS; Start 06/18/16 at 15:15 Potassium Chloride 100 ml @ 100 mls/hr Q1H IV Last administered on 06/18/16 19 :02; Start 06/18/16 at 16:00; Stop 06/18/16 at 17:59; Status DC Fentanyl Citrate (Fentanyl 2ml Vial) 50 mcg PRN Q2HR PRN IV PAIN; Start at 16:15 Sodium Chloride 1,000 ml @ 125 mls/hr Q8H IV Last administered on 06/19/16 05: 34; Start 06/18/16 at 20:00 Pantoprazole Sodium 80 mg/ Sodium Chloride 100 ml @ 10 mls/hr Q10H IV Last administered on 06/19/16 05:33; Start 06/18/16 at 23:00 Active Scripts Active Metoprolol Tartrate 25 Mg Tablet 1 Tab PO BID Lipitor (Atorvastatin Calcium) 80 Mg Tablet 1 Tab PO DAILY Effient (Prasugrel Hcl) 10 Mg Tablet 1 Tab PO DAILY Vitals/I & O Vital Sign - Last 24 Hours 06/18/16 06/18/16 06/18/16 06/18/16 11:30 11:30 12:00 13:00 Temp 98.5 98.5 98.5 98.5 Pulse 103 103 104 96 Resp 18 18 18 16 B/P (MAP) 154/102 (119) 154/102 (119) 147/103 (118) 147/94 (111) Pulse Ox 98 98 97 98 O2 Delivery Room Air Room Air Room Air Room Air 06/18/16 06/18/16 06/18/16 06/18/16 14:00 15:00 16:00 17:00 Temp 99.7 99.7 Pulse 94 105 102 102 Resp 20 20 20 B/P (MAP) 125/84 (98) 128/82 (97) 104/61 (75) 117/66 (83) Pulse Ox 98 99 98 96 O2 Delivery Room Air Room Air Room Air Room Air 06/18/16 06/18/16 06/18/16 06/18/16 18:00 19:00 20:00 21:00 Temp 99.4 99.4 Pulse 88 106 94 96 Resp 18 18 18 18 B/P (MAP) 104/72 (83) 111/74 (86) 119/83 (95) 114/74 (87) Pulse Ox 98 97 98 98 O2 Delivery Room Air Room Air Room Air Room Air 06/18/16 06/18/16 06/19/16 06/19/16 22:00 23:00 00:00 01:00 Temp 98.4 98.4 Pulse 96 96 84 88 Resp 18 18 18 18 B/P (MAP) 110/82 (91) 122/75 (91) 112/75 (87) 118/75 (89) Pulse Ox 96 97 96 96 O2 Delivery Room Air Room Air Room Air Room Air 06/19/16 06/19/16 06/19/16 06/19/16 02:00 03:00 04:00 04:00 Temp 98.7 98.7 Pulse 96 84 84 Resp 18 18 B/P (MAP) 112/71 (85) 97/67 (77) 95/71 (79) Pulse Ox 97 97 97 O2 Delivery Room Air Nasal Cannula Room Air Room Air 06/19/16 06/19/16 06/19/16 06/19/16 05:00 06:00 07:00 08:00 Pulse 80 83 80 Resp 18 18 18 B/P (MAP) 99/77 (84) 112/74 (87) 108/71 (83) Pulse Ox 97 97 97 O2 Delivery Room Air Room Air Room Air Room Air 06/19/16 06/19/16 06/19/16 06/19/16 08:00 09:00 10:00 10:54 Temp 97.8 98.4 97.8 98.4 Pulse 84 78 86 78 Resp 18 20 20 18 B/P (MAP) 103/70 (81) 106/68 (81) 105/75 (85) 105/70 (82) Pulse Ox 97 96 97 97 O2 Delivery Room Air Room Air Room Air Room Air Intake and Output 06/18/16 06/18/16 06/19/16 15:00 23:00 07:00 Intake Total 1660 ml 0 ml 1950 ml Output Total 1000 ml 400 ml Balance 660 ml -400 ml 1950 ml Problem List Problems Medical Problems: (1) GI bleed Status: Acute Assessment Acute blood loss anemia- secondary to gastric ulcer S/p endoscopic therapy, Hg stable, Plan PPI therapy serial cbcs npo for addiitnal 24 hours, then advance diet if Hg stable TJ MARAVILLA MD June 19, 2016 11:15
[2016-06-19 13:27] LABS: HEMATOCRIT 34.2 % (39.0-53.0); HEMOGLOBIN 11.5 g/dL (13.0-17.5); RED BLOOD COUNT 3.87 x10^6/uL (4.30-5.70); RED CELL DISTRIBUTION WIDTH 14.7 % (11.5-14.5); WHITE BLOOD COUNT 7.9 x10^3/uL (4.0-11.0)
[2016-06-20 03:21] VITALS: BP 112/75
[2016-06-20 05:29] LABS: BASO % 1 % (0-3); EOS % 6 % (0-3); HEMATOCRIT 31.1 % (39.0-53.0); HEMOGLOBIN 10.9 g/dL (13.0-17.5); LYMPH # 2.2 x10^3/uL (1.0-4.8); LYMPH % 28 % (24-48); MEAN CORPUSCULAR HEMOGLOBIN 31 pg (25-35); MEAN CORPUSCULAR HGB CONC 35 g/dL (31-37); MEAN CORPUSCULAR VOLUME 87 fL (79-100); MONO % 5 % (0-9); NEUT % 61 % (31-73); PLATELET COUNT 199 x10^3/uL (140-400); RED BLOOD COUNT 3.57 x10^6/uL (4.30-5.70); RED CELL DISTRIBUTION WIDTH 14.1 % (11.5-14.5); WHITE BLOOD COUNT 7.7 x10^3/uL (4.0-11.0)
[2016-06-20 05:45] LABS: CALCIUM 8.1 mg/dL (8.5-10.1); CREATININE 0.6 mg/dL (0.7-1.3); GFR 145.7; POTASSIUM 3.6 mmol/L (3.5-5.1)
[2016-06-20] MEDS: PANTOPRAZOLE SODIUM IV 80 MG in IV NORMAL SALINE 100ML 100 ML IV SCH ×2 (05:52→18:01)
[2016-06-20] MEDS: IV NORMAL SALINE 1000ML BAG 1,000 ML IV SCH ×3 (06:38→23:47)
[2016-06-20 07:00] VITALS: BP 110/73
[2016-06-20] MEDS: INSULIN ASPART 300 UNITS/3 ML INSULN.PEN SQ SCH ×3 (08:00→18:25)
--- NOTE | 2016-06-20 08:59 | PDOC ---
ELOY SMITH MONUMENTAL [facility] 06/20/16 0859: SURGICAL PROGRESS NOTE Subjective family interpreted asking about when can eat and go home denies pain Vital Signs Vital Signs Date Time Temp Pulse Resp B/P (MAP) Pulse Ox O2 Delivery O2 Flow Rate FiO2 06/20/16 08:01 Room Air 06/20/16 07:00 98.1 85 18 110/73 (85) 98 98.1 I&O Intake and Output 06/20/16 06:59 Intake Total 940 ml Output Total 800 ml Balance 140 ml Intake Oral 0 ml IV Total 940 ml Output Urine Total 800 ml # Voids 3 General: Alert, Oriented X3, Cooperative, No acute distress Abdomen: Soft, No tenderness Labs Laboratory Tests Test 06/18/16 12:57 06/18/16 16:00 06/18/16 17:20 06/19/16 05:00 Nasal Screen MRSA (PCR) Negative (Negative) White Blood Count 11.9 x10^3/uL (4.0-11.0) 9.4 x10^3/uL (4.0-11.0) Red Blood Count 4.23 x10^6/uL (4.30-5.70) 3.99 x10^6/uL (4.30-5.70) Hemoglobin 12.5 g/dL (13.0-17.5) 11.8 g/dL (13.0-17.5) Hematocrit 36.7 % (39.0-53.0) 35.4 % (39.0-53.0) Mean Corpuscular Volume 87 fL (79-100) 89 fL (79-100) Mean Corpuscular Hemoglobin 30 pg (25-35) 30 pg (25-35) Mean Corpuscular Hemoglobin Concent 34 g/dL (31-37) 33 g/dL (31-37) Red Cell Distribution Width 14.3 % (11.5-14.5) 14.6 % (11.5-14.5) Platelet Count 230 x10^3/uL (140-400) 197 x10^3/uL (140-400) Neutrophils (%) (Auto) 77 % (31-73) 68 % (31-73) Lymphocytes (%) (Auto) 17 % (24-48) 23 % (24-48) Monocytes (%) (Auto) 6 % (0-9) 6 % (0-9) Eosinophils (%) (Auto) 0 % (0-3) 2 % (0-3) Basophils (%) (Auto) 0 % (0-3) 1 % (0-3) Neutrophils # (Auto) 9.2 x10^3uL (1.8-7.7) 6.4 x10^3uL (1.8-7.7) Lymphocytes # (Auto) 2.0 x10^3/uL (1.0-4.8) 2.2 x10^3/uL (1.0-4.8) Monocytes # (Auto) 0.7 x10^3/uL (0.0-1.1) 0.5 x10^3/uL (0.0-1.1) Eosinophils # (Auto) 0.0 x10^3/uL (0.0-0.7) 0.2 x10^3/uL (0.0-0.7) Basophils # (Auto) 0.0 x10^3/uL (0.0-0.2) 0.1 x10^3/uL (0.0-0.2) Glucose (Fingerstick) 80 mg/dL (70-99) Prothrombin Time 11.6 SEC (11.7-14.0) Prothromb Time International Ratio 0.9 (0.8-1.1) Sodium Level 141 mmol/L (136-145) Potassium Level 3.7 mmol/L (3.5-5.1) Chloride Level 109 mmol/L (98-107) Carbon Dioxide Level 23 mmol/L (21-32) Anion Gap 9 (6-14) Blood Urea Nitrogen 20 mg/dL (8-26) Creatinine 0.7 mg/dL (0.7-1.3) Estimated GFR (Cockcroft-Gault) 122.0 BUN/Creatinine Ratio 29 (6-20) Glucose Level 104 mg/dL (70-99) Calcium Level 8.0 mg/dL (8.5-10.1) Total Bilirubin 0.5 mg/dL (0.2-1.0) Aspartate Amino Transf (AST/SGOT) 17 U/L (15-37) Alanine Aminotransferase (ALT/SGPT) 53 U/L (16-63) Alkaline Phosphatase 48 U/L (46-116) Total Protein 6.0 g/dL (6.4-8.2) Albumin 2.9 g/dL (3.4-5.0) Albumin/Globulin Ratio 0.9 (1.0-1.7) Test 06/19/16 11:50 06/19/16 13:05 06/19/16 17:32 06/19/16 20:15 Glucose (Fingerstick) 95 mg/dL (70-99) 80 mg/dL (70-99) 89 mg/dL (70-99) White Blood Count 7.9 x10^3/uL (4.0-11.0) Red Blood Count 3.87 x10^6/uL (4.30-5.70) Hemoglobin 11.5 g/dL (13.0-17.5) Hematocrit 34.2 % (39.0-53.0) Mean Corpuscular Volume 88 fL (79-100) Mean Corpuscular Hemoglobin 30 pg (25-35) Mean Corpuscular Hemoglobin Concent 34 g/dL (31-37) Red Cell Distribution Width 14.7 % (11.5-14.5) Platelet Count 201 x10^3/uL (140-400) Test 06/20/16 04:50 06/20/16 07:59 White Blood Count 7.7 x10^3/uL (4.0-11.0) Red Blood Count 3.57 x10^6/uL (4.30-5.70) Hemoglobin 10.9 g/dL (13.0-17.5) Hematocrit 31.1 % (39.0-53.0) Mean Corpuscular Volume 87 fL (79-100) Mean Corpuscular Hemoglobin 31 pg (25-35) Mean Corpuscular Hemoglobin Concent 35 g/dL (31-37) Red Cell Distribution Width 14.1 % (11.5-14.5) Platelet Count 199 x10^3/uL (140-400) Neutrophils (%) (Auto) 61 % (31-73) Lymphocytes (%) (Auto) 28 % (24-48) Monocytes (%) (Auto) 5 % (0-9) Eosinophils (%) (Auto) 6 % (0-3) Basophils (%) (Auto) 1 % (0-3) Neutrophils # (Auto) 4.8 x10^3uL (1.8-7.7) Lymphocytes # (Auto) 2.2 x10^3/uL (1.0-4.8) Monocytes # (Auto) 0.4 x10^3/uL (0.0-1.1) Eosinophils # (Auto) 0.4 x10^3/uL (0.0-0.7) Basophils # (Auto) 0.0 x10^3/uL (0.0-0.2) Sodium Level 141 mmol/L (136-145) Potassium Level 3.6 mmol/L (3.5-5.1) Chloride Level 107 mmol/L (98-107) Carbon Dioxide Level 22 mmol/L (21-32) Anion Gap 12 (6-14) Blood Urea Nitrogen 15 mg/dL (8-26) Creatinine 0.6 mg/dL (0.7-1.3) Estimated GFR (Cockcroft-Gault) 145.7 Glucose Level 76 mg/dL (70-99) Calcium Level 8.1 mg/dL (8.5-10.1) Glucose (Fingerstick) 76 mg/dL (70-99) Laboratory Tests Test 06/19/16 11:50 06/19/16 13:05 06/19/16 17:32 06/19/16 20:15 Glucose (Fingerstick) 95 mg/dL (70-99) 80 mg/dL (70-99) 89 mg/dL (70-99) White Blood Count 7.9 x10^3/uL (4.0-11.0) Red Blood Count 3.87 x10^6/uL (4.30-5.70) Hemoglobin 11.5 g/dL (13.0-17.5) Hematocrit 34.2 % (39.0-53.0) Mean Corpuscular Volume 88 fL (79-100) Mean Corpuscular Hemoglobin 30 pg (25-35) Mean Corpuscular Hemoglobin Concent 34 g/dL (31-37) Red Cell Distribution Width 14.7 % (11.5-14.5) Platelet Count 201 x10^3/uL (140-400) Test 06/20/16 04:50 06/20/16 07:59 White Blood Count 7.7 x10^3/uL (4.0-11.0) Red Blood Count 3.57 x10^6/uL (4.30-5.70) Hemoglobin 10.9 g/dL (13.0-17.5) Hematocrit 31.1 % (39.0-53.0) Mean Corpuscular Volume 87 fL (79-100) Mean Corpuscular Hemoglobin 31 pg (25-35) Mean Corpuscular Hemoglobin Concent 35 g/dL (31-37) Red Cell Distribution Width 14.1 % (11.5-14.5) Platelet Count 199 x10^3/uL (140-400) Neutrophils (%) (Auto) 61 % (31-73) Lymphocytes (%) (Auto) 28 % (24-48) Monocytes (%) (Auto) 5 % (0-9) Eosinophils (%) (Auto) 6 % (0-3) Basophils (%) (Auto) 1 % (0-3) Neutrophils # (Auto) 4.8 x10^3uL (1.8-7.7) Lymphocytes # (Auto) 2.2 x10^3/uL (1.0-4.8) Monocytes # (Auto) 0.4 x10^3/uL (0.0-1.1) Eosinophils # (Auto) 0.4 x10^3/uL (0.0-0.7) Basophils # (Auto) 0.0 x10^3/uL (0.0-0.2) Sodium Level 141 mmol/L (136-145) Potassium Level 3.6 mmol/L (3.5-5.1) Chloride Level 107 mmol/L (98-107) Carbon Dioxide Level 22 mmol/L (21-32) Anion Gap 12 (6-14) Blood Urea Nitrogen 15 mg/dL (8-26) Creatinine 0.6 mg/dL (0.7-1.3) Estimated GFR (Cockcroft-Gault) 145.7 Glucose Level 76 mg/dL (70-99) Calcium Level 8.1 mg/dL (8.5-10.1) Glucose (Fingerstick) 76 mg/dL (70-99) Problem List Problems Medical Problems: (1) GI bleed Status: Acute Assessment/Plan s/p endoscopic intervention hgb 10.9 on PPI continue per GI no surgical needs Problems: ZAMAN,NINFA W MD 06/20/16 0954: SURGICAL PROGRESS NOTE Assessment/Plan Clinically stable. Agree with Zoë's assessment and plan Problems: ELOY SMITH APRN June 20, 2016 08:59 NINFA ZAMAN MD June 20, 2016 09:54
--- NOTE | 2016-06-20 10:44 | PDOC2 ---
ABBEY VAZQUEZ [employer] WORKER 06/20/16 1044: CARDIAC CONSULT DATE OF CONSULT Date of Consult DATE: 06/20/16 TIME: 10:36 REASON FOR CONSULT Reason for Consult: GI bleed on effient from [facility] REFERRING PHYSICIAN Referring Physician: Good SOURCE Source: Chart review, Patient HISTORY OF PRESENT ILLNESS HISTORY OF PRESENT ILLNESS This is a pleasant Portuguese 45 yo male admitted for complain of vomiting blood. After EGD he was then noted with gastric ulcer. Pt is s/p PCI/CARLEY from about a yr ago. Pt is on effient at home which prompted this consult as well as fish oil. Cardiac bruno, denies any chest pain, SOA, palpitations. He actually had a recent stress test which was unremarkable for abnormalities. Currently he feels better. PAST MEDICAL HISTORY Cardiovascular: CAD, NV, Hyperlipidemia Pulmonary: No pertinent hx CENTRAL NERVOUS SYSTEM: Other (No pertinent history) GI: No pertinent hx Heme/Onc: No pertinent hx Hepatobiliary: No pertinent hx Psych: No pertinent hx Musculoskeletal: Other (None) Infectious disease: No pertinent hx ENT: No pertinent hx Renal/: No pertinent hx Endocrine: No pertinent hx Dermatology: No pertinent hx PAST SURGICAL HISTORY Past Surgical History: Other (PCI/CARLEY 06/2015) FAMILY HISTORY Family History noncontributory SOCIAL HISTORY Smoke: No ALCOHOL: none (quit) Drugs: None Lives: with Family ALLERGIES ALLERGIES: Coded Allergies: No Known Drug Allergies (Unverified , 07/11/15) ROS Review of System 14 point ROS evaluated with pertinent positives noted per HPI PHYSICAL EXAM General: Alert, Oriented X3, Cooperative, No acute distress HEENT: Atraumatic, Mucous membr. moist/pink Lungs: Clear to auscultation, Normal air movement Heart: Regular rate, Normal S1, Normal S2 Abdomen: Soft, No tenderness Extremities: No cyanosis, No edema Skin: No breakdown, No significant lesion Neuro: Normal speech, Sensation intact Psych/Mental Status: Mental status NL, Mood NL MUSCULOSKELETAL: Osteoarthritic changes both hands VITALS VITALS Vital Signs Date Time Temp Pulse Resp B/P (MAP) Pulse Ox O2 Delivery O2 Flow Rate FiO2 06/20/16 08:01 Room Air 06/20/16 07:00 98.1 85 18 110/73 (85) 98 98.1 LABS Lab: Laboratory Tests Test 06/19/16 11:50 06/19/16 13:05 06/19/16 17:32 06/19/16 20:15 Glucose (Fingerstick) 95 mg/dL (70-99) 80 mg/dL (70-99) 89 mg/dL (70-99) White Blood Count 7.9 x10^3/uL (4.0-11.0) Red Blood Count 3.87 x10^6/uL (4.30-5.70) Hemoglobin 11.5 g/dL (13.0-17.5) Hematocrit 34.2 % (39.0-53.0) Mean Corpuscular Volume 88 fL (79-100) Mean Corpuscular Hemoglobin 30 pg (25-35) Mean Corpuscular Hemoglobin Concent 34 g/dL (31-37) Red Cell Distribution Width 14.7 % (11.5-14.5) Platelet Count 201 x10^3/uL (140-400) Test 06/20/16 04:50 06/20/16 07:59 White Blood Count 7.7 x10^3/uL (4.0-11.0) Red Blood Count 3.57 x10^6/uL (4.30-5.70) Hemoglobin 10.9 g/dL (13.0-17.5) Hematocrit 31.1 % (39.0-53.0) Mean Corpuscular Volume 87 fL (79-100) Mean Corpuscular Hemoglobin 31 pg (25-35) Mean Corpuscular Hemoglobin Concent 35 g/dL (31-37) Red Cell Distribution Width 14.1 % (11.5-14.5) Platelet Count 199 x10^3/uL (140-400) Neutrophils (%) (Auto) 61 % (31-73) Lymphocytes (%) (Auto) 28 % (24-48) Monocytes (%) (Auto) 5 % (0-9) Eosinophils (%) (Auto) 6 % (0-3) Basophils (%) (Auto) 1 % (0-3) Neutrophils # (Auto) 4.8 x10^3uL (1.8-7.7) Lymphocytes # (Auto) 2.2 x10^3/uL (1.0-4.8) Monocytes # (Auto) 0.4 x10^3/uL (0.0-1.1) Eosinophils # (Auto) 0.4 x10^3/uL (0.0-0.7) Basophils # (Auto) 0.0 x10^3/uL (0.0-0.2) Sodium Level 141 mmol/L (136-145) Potassium Level 3.6 mmol/L (3.5-5.1) Chloride Level 107 mmol/L (98-107) Carbon Dioxide Level 22 mmol/L (21-32) Anion Gap 12 (6-14) Blood Urea Nitrogen 15 mg/dL (8-26) Creatinine 0.6 mg/dL (0.7-1.3) Estimated GFR (Cockcroft-Gault) 145.7 Glucose Level 76 mg/dL (70-99) Calcium Level 8.1 mg/dL (8.5-10.1) Glucose (Fingerstick) 76 mg/dL (70-99) ECHOCARDIOGRAM ECHOCARDIOGRAM <Conclusion> The left ventricular systolic function is normal. The Ejection Fraction is estimated at 55-60%. There is normal LV segmental wall motion. Trace tricuspid valve regurgitation. There is no evidence of significant pericardial effusion. DATE: 07/15/15 1738 STRESS TEST STRESS TEST Conclusion 1. No evidence of stress induced EKG changes. 2. Fixed lateral wall infarct without active ischemia. 3. Normal EF at > 70% 4. Low to moderate risk study DATE: 02/22/16 1654 HEART CATH HEART CATH Conclusion #1 successful PTCA/stent for a totally occluded mid segment of the circumflex using a 2.75 18 mm CARLEY with good results. FABIANO 0 flow was improved to normal flow. FABIANO 3 flow there is at the origin of a small second marginal branch. The stent was placed just distal to this second marginal branch. Successful DCA/stent for a 90% narrowing of the mid LAD using a 5 x 12 mm CARLEY. FABIANO grade 2 flow was improved to FABIANO 3 flow. Mild scattered plaque is noted throughout the proximal distal portion of the dominant right coronary artery. There is a need to 90% narrowing of proximal portion of a small to moderate size branch vessel. No significant disease is noted in the status any branch. #2 left ventriculography revealed moderate hypokinesia of the distal anterior and apical portion of ventricle ejection fraction is estimated at 35-40%. There is no mitral regurgitation. #3 left heart pressures are within normal limits. #4 successful placement of an Angio-Seal device in the right femoral artery. Recommendations Cardiac Rehabilitation Referral Daily ASA with Plavix for at least one year Aggressive Medical Therapy Cardiac Risk Reduction Program Consider a staged procedure. The posterior lateral branch In summary staged procedure of the posterior lateral branch vessel. DATE: 07/13/15 1116 Conclusion Successful staged PCI/CARLEY to the posterolateral branch of right coronary artery. DATE: 07/14/15 1115 ASSESSMENT/PLAN ASSESSMENT/PLAN 1. PUD/hematemesis: gastric ulcer s/p cautery /epi injection to lesser curvature per GI 2. Acute anemia due to above: Hgb stable at 10.9 3. CAD: S/P LHC with mid LCx CARLEY 07/11, staged 2 07/13 to posterolateral branch of RCA. 4. HTN: controlled 5. HLP Recommendations 1. Stop home fish oil. Continue with lipitor 2. Continue with metoprolol. Unable to start on ACEi due to low end BP 3. Hold effient for now. Would prefer to continue on effient once cleared by GI 4. Pt currently no ASA at home. 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 5. Follow up lipid panel. Problems: KIMBERLY SWEENEY MD 06/20/16 1511: CARDIAC CONSULT ALLERGIES ALLERGIES: Coded Allergies: No Known Drug Allergies (Unverified , 07/11/15) ASSESSMENT/PLAN ASSESSMENT/PLAN Patient seen and examined. Agree with MANNEQUIN MOLDER's assessment and plan. Patient with acute GI bleed from gastric ulcer s/p cautery/epi injection CAD status clinically stable. Resume Effient than okay from GI standpoint. Okay to stop aspirin. Thank you for the consultation. Problems: ABBEY VAZQUEZ [employer] WORK[employer] June 20, 2016 10:44 KIMBERLY SWEENEY MD June 20, 2016 15:11
[2016-06-20 11:00] VITALS: BP 105/78
--- NOTE | 2016-06-20 11:19 | PDOC ---
PROGRESS NOTES Chief Complaint Chief Complaint -Hematemesis -Acute blood loss anemia -Upper GI bleed w/ gastric ulceration -Elevated BUN from gastric blood -Moderate malnutrition -Possible cirrhosis of liver, History of Present Illness History of Present Illness Mr. Lacey was in NAD when we saw him. He asked when he could eat per daughter who translated to the nurse. Vitals Vitals Vital Signs Date Time Temp Pulse Resp B/P (MAP) Pulse Ox O2 Delivery O2 Flow Rate FiO2 06/20/16 11:00 98.3 77 18 105/78 (87) 96 Room Air 98.3 Physical Exam General: Alert, Oriented X3, Cooperative, No acute distress Heart: Regular rate, Normal S1, Normal S2, No murmurs Lungs: Clear Abdomen: Soft, No tenderness Extremities: No clubbing, No cyanosis Skin: No rashes, No breakdown Labs LABS Laboratory Tests Test 06/19/16 11:50 06/19/16 13:05 06/19/16 17:32 06/19/16 20:15 Glucose (Fingerstick) 95 mg/dL (70-99) 80 mg/dL (70-99) 89 mg/dL (70-99) White Blood Count 7.9 x10^3/uL (4.0-11.0) Red Blood Count 3.87 x10^6/uL (4.30-5.70) Hemoglobin 11.5 g/dL (13.0-17.5) Hematocrit 34.2 % (39.0-53.0) Mean Corpuscular Volume 88 fL (79-100) Mean Corpuscular Hemoglobin 30 pg (25-35) Mean Corpuscular Hemoglobin Concent 34 g/dL (31-37) Red Cell Distribution Width 14.7 % (11.5-14.5) Platelet Count 201 x10^3/uL (140-400) Test 06/20/16 04:50 06/20/16 07:59 White Blood Count 7.7 x10^3/uL (4.0-11.0) Red Blood Count 3.57 x10^6/uL (4.30-5.70) Hemoglobin 10.9 g/dL (13.0-17.5) Hematocrit 31.1 % (39.0-53.0) Mean Corpuscular Volume 87 fL (79-100) Mean Corpuscular Hemoglobin 31 pg (25-35) Mean Corpuscular Hemoglobin Concent 35 g/dL (31-37) Red Cell Distribution Width 14.1 % (11.5-14.5) Platelet Count 199 x10^3/uL (140-400) Neutrophils (%) (Auto) 61 % (31-73) Lymphocytes (%) (Auto) 28 % (24-48) Monocytes (%) (Auto) 5 % (0-9) Eosinophils (%) (Auto) 6 % (0-3) Basophils (%) (Auto) 1 % (0-3) Neutrophils # (Auto) 4.8 x10^3uL (1.8-7.7) Lymphocytes # (Auto) 2.2 x10^3/uL (1.0-4.8) Monocytes # (Auto) 0.4 x10^3/uL (0.0-1.1) Eosinophils # (Auto) 0.4 x10^3/uL (0.0-0.7) Basophils # (Auto) 0.0 x10^3/uL (0.0-0.2) Sodium Level 141 mmol/L (136-145) Potassium Level 3.6 mmol/L (3.5-5.1) Chloride Level 107 mmol/L (98-107) Carbon Dioxide Level 22 mmol/L (21-32) Anion Gap 12 (6-14) Blood Urea Nitrogen 15 mg/dL (8-26) Creatinine 0.6 mg/dL (0.7-1.3) Estimated GFR (Cockcroft-Gault) 145.7 Glucose Level 76 mg/dL (70-99) Calcium Level 8.1 mg/dL (8.5-10.1) Glucose (Fingerstick) 76 mg/dL (70-99) Review of Systems Review of Systems General: denies fatigue GI: denies abdominal pain, hematemesis Assessment and Plan Assessmemt and Plan Problems Medical Problems: (1) GI bleed Status: Acute -Hematemesis -Acute blood loss anemia -Upper GI bleed w/ gastric ulceration -Elevated BUN from gastric blood -Moderate malnutrition -Possible cirrhosis of liver Plan: 1. Follow closely with GI- recommended NPO for 48 hours on 06/18 2. PRN transfusions if Hg falls below 8 3. Continue IV Protonix 4. Recheck AM labs, trending Hg 5. PT/OT consulted 6. Subspecialist input appreciated Problems: Comment Review of Relevant I have reviewed the following items antione (where applicable) has been applied. Labs Laboratory Tests Test 06/18/16 12:57 06/18/16 16:00 06/18/16 17:20 06/19/16 05:00 Nasal Screen MRSA (PCR) Negative (Negative) White Blood Count 11.9 x10^3/uL (4.0-11.0) 9.4 x10^3/uL (4.0-11.0) Red Blood Count 4.23 x10^6/uL (4.30-5.70) 3.99 x10^6/uL (4.30-5.70) Hemoglobin 12.5 g/dL (13.0-17.5) 11.8 g/dL (13.0-17.5) Hematocrit 36.7 % (39.0-53.0) 35.4 % (39.0-53.0) Mean Corpuscular Volume 87 fL (79-100) 89 fL (79-100) Mean Corpuscular Hemoglobin 30 pg (25-35) 30 pg (25-35) Mean Corpuscular Hemoglobin Concent 34 g/dL (31-37) 33 g/dL (31-37) Red Cell Distribution Width 14.3 % (11.5-14.5) 14.6 % (11.5-14.5) Platelet Count 230 x10^3/uL (140-400) 197 x10^3/uL (140-400) Neutrophils (%) (Auto) 77 % (31-73) 68 % (31-73) Lymphocytes (%) (Auto) 17 % (24-48) 23 % (24-48) Monocytes (%) (Auto) 6 % (0-9) 6 % (0-9) Eosinophils (%) (Auto) 0 % (0-3) 2 % (0-3) Basophils (%) (Auto) 0 % (0-3) 1 % (0-3) Neutrophils # (Auto) 9.2 x10^3uL (1.8-7.7) 6.4 x10^3uL (1.8-7.7) Lymphocytes # (Auto) 2.0 x10^3/uL (1.0-4.8) 2.2 x10^3/uL (1.0-4.8) Monocytes # (Auto) 0.7 x10^3/uL (0.0-1.1) 0.5 x10^3/uL (0.0-1.1) Eosinophils # (Auto) 0.0 x10^3/uL (0.0-0.7) 0.2 x10^3/uL (0.0-0.7) Basophils # (Auto) 0.0 x10^3/uL (0.0-0.2) 0.1 x10^3/uL (0.0-0.2) Glucose (Fingerstick) 80 mg/dL (70-99) Prothrombin Time 11.6 SEC (11.7-14.0) Prothromb Time International Ratio 0.9 (0.8-1.1) Sodium Level 141 mmol/L (136-145) Potassium Level 3.7 mmol/L (3.5-5.1) Chloride Level 109 mmol/L (98-107) Carbon Dioxide Level 23 mmol/L (21-32) Anion Gap 9 (6-14) Blood Urea Nitrogen 20 mg/dL (8-26) Creatinine 0.7 mg/dL (0.7-1.3) Estimated GFR (Cockcroft-Gault) 122.0 BUN/Creatinine Ratio 29 (6-20) Glucose Level 104 mg/dL (70-99) Calcium Level 8.0 mg/dL (8.5-10.1) Total Bilirubin 0.5 mg/dL (0.2-1.0) Aspartate Amino Transf (AST/SGOT) 17 U/L (15-37) Alanine Aminotransferase (ALT/SGPT) 53 U/L (16-63) Alkaline Phosphatase 48 U/L (46-116) Total Protein 6.0 g/dL (6.4-8.2) Albumin 2.9 g/dL (3.4-5.0) Albumin/Globulin Ratio 0.9 (1.0-1.7) Test 06/19/16 11:50 06/19/16 13:05 06/19/16 17:32 06/19/16 20:15 Glucose (Fingerstick) 95 mg/dL (70-99) 80 mg/dL (70-99) 89 mg/dL (70-99) White Blood Count 7.9 x10^3/uL (4.0-11.0) Red Blood Count 3.87 x10^6/uL (4.30-5.70) Hemoglobin 11.5 g/dL (13.0-17.5) Hematocrit 34.2 % (39.0-53.0) Mean Corpuscular Volume 88 fL (79-100) Mean Corpuscular Hemoglobin 30 pg (25-35) Mean Corpuscular Hemoglobin Concent 34 g/dL (31-37) Red Cell Distribution Width 14.7 % (11.5-14.5) Platelet Count 201 x10^3/uL (140-400) Test 06/20/16 04:50 06/20/16 07:59 White Blood Count 7.7 x10^3/uL (4.0-11.0) Red Blood Count 3.57 x10^6/uL (4.30-5.70) Hemoglobin 10.9 g/dL (13.0-17.5) Hematocrit 31.1 % (39.0-53.0) Mean Corpuscular Volume 87 fL (79-100) Mean Corpuscular Hemoglobin 31 pg (25-35) Mean Corpuscular Hemoglobin Concent 35 g/dL (31-37) Red Cell Distribution Width 14.1 % (11.5-14.5) Platelet Count 199 x10^3/uL (140-400) Neutrophils (%) (Auto) 61 % (31-73) Lymphocytes (%) (Auto) 28 % (24-48) Monocytes (%) (Auto) 5 % (0-9) Eosinophils (%) (Auto) 6 % (0-3) Basophils (%) (Auto) 1 % (0-3) Neutrophils # (Auto) 4.8 x10^3uL (1.8-7.7) Lymphocytes # (Auto) 2.2 x10^3/uL (1.0-4.8) Monocytes # (Auto) 0.4 x10^3/uL (0.0-1.1) Eosinophils # (Auto) 0.4 x10^3/uL (0.0-0.7) Basophils # (Auto) 0.0 x10^3/uL (0.0-0.2) Sodium Level 141 mmol/L (136-145) Potassium Level 3.6 mmol/L (3.5-5.1) Chloride Level 107 mmol/L (98-107) Carbon Dioxide Level 22 mmol/L (21-32) Anion Gap 12 (6-14) Blood Urea Nitrogen 15 mg/dL (8-26) Creatinine 0.6 mg/dL (0.7-1.3) Estimated GFR (Cockcroft-Gault) 145.7 Glucose Level 76 mg/dL (70-99) Calcium Level 8.1 mg/dL (8.5-10.1) Glucose (Fingerstick) 76 mg/dL (70-99) Laboratory Tests Test 06/19/16 11:50 06/19/16 13:05 06/19/16 17:32 06/19/16 20:15 Glucose (Fingerstick) 95 mg/dL (70-99) 80 mg/dL (70-99) 89 mg/dL (70-99) White Blood Count 7.9 x10^3/uL (4.0-11.0) Red Blood Count 3.87 x10^6/uL (4.30-5.70) Hemoglobin 11.5 g/dL (13.0-17.5) Hematocrit 34.2 % (39.0-53.0) Mean Corpuscular Volume 88 fL (79-100) Mean Corpuscular Hemoglobin 30 pg (25-35) Mean Corpuscular Hemoglobin Concent 34 g/dL (31-37) Red Cell Distribution Width 14.7 % (11.5-14.5) Platelet Count 201 x10^3/uL (140-400) Test 06/20/16 04:50 06/20/16 07:59 White Blood Count 7.7 x10^3/uL (4.0-11.0) Red Blood Count 3.57 x10^6/uL (4.30-5.70) Hemoglobin 10.9 g/dL (13.0-17.5) Hematocrit 31.1 % (39.0-53.0) Mean Corpuscular Volume 87 fL (79-100) Mean Corpuscular Hemoglobin 31 pg (25-35) Mean Corpuscular Hemoglobin Concent 35 g/dL (31-37) Red Cell Distribution Width 14.1 % (11.5-14.5) Platelet Count 199 x10^3/uL (140-400) Neutrophils (%) (Auto) 61 % (31-73) Lymphocytes (%) (Auto) 28 % (24-48) Monocytes (%) (Auto) 5 % (0-9) Eosinophils (%) (Auto) 6 % (0-3) Basophils (%) (Auto) 1 % (0-3) Neutrophils # (Auto) 4.8 x10^3uL (1.8-7.7) Lymphocytes # (Auto) 2.2 x10^3/uL (1.0-4.8) Monocytes # (Auto) 0.4 x10^3/uL (0.0-1.1) Eosinophils # (Auto) 0.4 x10^3/uL (0.0-0.7) Basophils # (Auto) 0.0 x10^3/uL (0.0-0.2) Sodium Level 141 mmol/L (136-145) Potassium Level 3.6 mmol/L (3.5-5.1) Chloride Level 107 mmol/L (98-107) Carbon Dioxide Level 22 mmol/L (21-32) Anion Gap 12 (6-14) Blood Urea Nitrogen 15 mg/dL (8-26) Creatinine 0.6 mg/dL (0.7-1.3) Estimated GFR (Cockcroft-Gault) 145.7 Glucose Level 76 mg/dL (70-99) Calcium Level 8.1 mg/dL (8.5-10.1) Glucose (Fingerstick) 76 mg/dL (70-99) Medications Current Medications Sodium Chloride 1,000 ml @ 1,000 mls/hr 1X ONCE IV Last administered on 08:06; Start 06/18/16 at 08:00; Stop 06/18/16 at 08:59; Status DC Norepinephrine Bitartrate 250 ml @ 0 mls/hr 1X ONCE IV Last administered on 08:09; Start 06/18/16 at 08:00; Stop 06/18/16 at 08:03; Status DC Pantoprazole Sodium 80 mg/ Sodium Chloride 100 ml @ 10 mls/hr 1X ONCE IV Last administered on 06/18/16 13:25; Start 06/18/16 at 08:00; Stop 06/18/16 at 17: 59; Status DC Octreotide Acetate 500 mcg/ Sodium Chloride 101 ml @ 0 mls/hr CONT PRN IV SEE I /O RECORD Last administered on 06/18/16 09:27; Start 06/18/16 at 08:30; Stop 06/18 at 19:31; Status DC Ondansetron HCl (Zofran) 4 mg PRN Q8HRS PRN IV NAUSEA/VOMITING; Start 06/18/16 at 08:45; Stop 06/19/16 at 08:44; Status DC Midazolam HCl (Versed) 5 mg STK-MED ONCE .ROUTE ; Start 06/18/16 at 09:16; Stop 06/18/16 at 09:17; Status DC Fentanyl Citrate (Fentanyl 2ml Vial) 100 mcg STK-MED ONCE .ROUTE ; Start at 09:17; Stop 06/18/16 at 09:18; Status DC Diphenhydramine HCl (Benadryl) 50 mg STK-MED ONCE .ROUTE ; Start 06/18/16 at 09: 17; Stop 06/18/16 at 09:18; Status DC Midazolam HCl (Versed) 5 mg STK-MED ONCE .ROUTE ; Start 06/18/16 at 09:17; Stop 06/18/16 at 09:18; Status DC Fentanyl Citrate (Fentanyl 2ml Vial) 100 mcg STK-MED ONCE IV Last administered on 06/18/16 09:58; Start 06/18/16 at 09:58; Stop 06/18/16 at 10:31; Status DC Midazolam HCl (Versed) 5 mg STK-MED ONCE IV Last administered on 06/18/16 09:58 ; Start 06/18/16 at 09:58; Stop 06/18/16 at 10:31; Status DC Fentanyl Citrate (Fentanyl 2ml Vial) 100 mcg STK-MED ONCE IV Last administered on 06/18/16 10:00; Start 06/18/16 at 10:00; Stop 06/18/16 at 10:31; Status DC Midazolam HCl (Versed) 5 mg STK-MED ONCE IV Last administered on 06/18/16 10:00 ; Start 06/18/16 at 10:00; Stop 06/18/16 at 10:31; Status DC Fentanyl Citrate (Fentanyl 2ml Vial) 100 mcg STK-MED ONCE IV Last administered on 06/18/16 10:02; Start 06/18/16 at 10:02; Stop 06/18/16 at 10:31; Status DC Midazolam HCl (Versed) 5 mg STK-MED ONCE IV Last administered on 06/18/16 10:02 ; Start 06/18/16 at 10:02; Stop 06/18/16 at 10:31; Status DC Fentanyl Citrate (Fentanyl 2ml Vial) 100 mcg STK-MED ONCE IV Last administered on 06/18/16 10:11; Start 06/18/16 at 10:11; Stop 06/18/16 at 10:31; Status DC Midazolam HCl (Versed) 5 mg STK-MED ONCE IV Last administered on 06/18/16 10:11 ; Start 06/18/16 at 10:11; Stop 06/18/16 at 10:31; Status DC Fentanyl Citrate (Fentanyl 2ml Vial) 100 mcg STK-MED ONCE IV Last administered on 06/18/16 10:13; Start 06/18/16 at 10:13; Stop 06/18/16 at 10:31; Status DC Midazolam HCl (Versed) 5 mg STK-MED ONCE IV Last administered on 06/18/16 10:13 ; Start 06/18/16 at 10:13; Stop 06/18/16 at 10:31; Status DC Epinephrine HCl (Adrenalin) 1 mg STK-MED ONCE SQ Last administered on 06/18/16 10:10; Start 06/18/16 at 10:10; Stop 06/18/16 at 10:52; Status DC Epinephrine HCl (Epinephrine Syringe) 1 mg STK-MED ONCE .ROUTE ; Start 06/18/16 at 10:57; Stop 06/18/16 at 10:58; Status DC Insulin Aspart (Novolog) 0-7 UNITS TIDWMEALS SQ ; Start 06/18/16 at 17:00 Dextrose (Dextrose 50%-Water Syringe) 12.5 gm PRN Q15MIN PRN IV SEE COMMENTS; Start 06/18/16 at 15:15 Potassium Chloride 100 ml @ 100 mls/hr Q1H IV Last administered on 06/18/16 19 :02; Start 06/18/16 at 16:00; Stop 06/18/16 at 17:59; Status DC Fentanyl Citrate (Fentanyl 2ml Vial) 50 mcg PRN Q2HR PRN IV PAIN; Start at 16:15 Sodium Chloride 1,000 ml @ 125 mls/hr Q8H IV Last administered on 06/20/16 06: 38; Start 06/18/16 at 20:00 Pantoprazole Sodium 80 mg/ Sodium Chloride 100 ml @ 10 mls/hr Q10H IV Last administered on 06/20/16 05:52; Start 06/18/16 at 23:00 Active Scripts Active Metoprolol Tartrate 25 Mg Tablet 1 Tab PO BID Lipitor (Atorvastatin Calcium) 80 Mg Tablet 1 Tab PO DAILY Effient (Prasugrel Hcl) 10 Mg Tablet 1 Tab PO DAILY Vitals/I & O Vital Sign - Last 24 Hours 06/19/16 06/19/16 06/19/16 06/19/16 15:00 20:00 20:02 23:25 Temp 97.9 96.6 97.5 97.9 96.6 97.5 Pulse 85 77 79 Resp 20 16 16 B/P (MAP) 104/73 (83) 112/79 (90) 118/80 (93) Pulse Ox 96 99 95 O2 Delivery Room Air Room Air Room Air Room Air 06/20/16 06/20/16 06/20/16 06/20/16 03:21 07:00 08:01 11:00 Temp 97.9 98.1 98.3 97.9 98.1 98.3 Pulse 84 85 77 Resp 16 18 18 B/P (MAP) 112/75 (87) 110/73 (85) 105/78 (87) Pulse Ox 95 98 96 O2 Delivery Room Air Room Air Room Air Room Air Intake and Output 06/19/16 06/19/16 06/20/16 15:00 23:00 07:00 Intake Total 940 ml 0 ml Output Total 800 ml Balance 140 ml 0 ml CLARI CAUSEY III DO June 20, 2016 11:19
--- NOTE | 2016-06-20 11:22 | PDOC ---
Subjective: Subjective: Family present to translate - denies bleeding and pain, would like to eat. Objective: Vital Signs: Vital Signs Date Time Temp Pulse Resp B/P (MAP) Pulse Ox O2 Delivery O2 Flow Rate FiO2 06/20/16 11:00 98.3 77 18 105/78 (87) 96 Room Air 98.3 Labs: Laboratory Tests Test 06/19/16 11:50 06/19/16 13:05 06/19/16 17:32 06/19/16 20:15 Glucose (Fingerstick) 95 mg/dL 80 mg/dL 89 mg/dL White Blood Count 7.9 x10^3/uL Red Blood Count 3.87 x10^6/uL Hemoglobin 11.5 g/dL Hematocrit 34.2 % Mean Corpuscular Volume 88 fL Mean Corpuscular Hemoglobin 30 pg Mean Corpuscular Hemoglobin Concent 34 g/dL Red Cell Distribution Width 14.7 % Platelet Count 201 x10^3/uL Test 06/20/16 04:50 06/20/16 07:59 White Blood Count 7.7 x10^3/uL Red Blood Count 3.57 x10^6/uL Hemoglobin 10.9 g/dL Hematocrit 31.1 % Mean Corpuscular Volume 87 fL Mean Corpuscular Hemoglobin 31 pg Mean Corpuscular Hemoglobin Concent 35 g/dL Red Cell Distribution Width 14.1 % Platelet Count 199 x10^3/uL Neutrophils (%) (Auto) 61 % Lymphocytes (%) (Auto) 28 % Monocytes (%) (Auto) 5 % Eosinophils (%) (Auto) 6 % Basophils (%) (Auto) 1 % Neutrophils # (Auto) 4.8 x10^3uL Lymphocytes # (Auto) 2.2 x10^3/uL Monocytes # (Auto) 0.4 x10^3/uL Eosinophils # (Auto) 0.4 x10^3/uL Basophils # (Auto) 0.0 x10^3/uL Sodium Level 141 mmol/L Potassium Level 3.6 mmol/L Chloride Level 107 mmol/L Carbon Dioxide Level 22 mmol/L Anion Gap 12 Blood Urea Nitrogen 15 mg/dL Creatinine 0.6 mg/dL Estimated GFR (Cockcroft-Gault) 145.7 Glucose Level 76 mg/dL Calcium Level 8.1 mg/dL Glucose (Fingerstick) 76 mg/dL Imaging: EGD 06/18/16: bleeding gastric ulcer s/p cautery /epi injection 8 cc lesser curve with visible vessel -40% chance of rebleeding with endoscopic stigmata PE: GEN: NAD LUNGS: CTAB HEART: RRR ABD: NABS, S/ND/NT NEURO/PSYCH: A & O 3 A/P: Hematemesis, melena - resolved Gastric ulcer s/p endotherapy 06/18 Anemia -Hgb stable CAD w/ CARLEY -- Try clear liquids. D/w cardiology/Jhunne - will not restart ASA but instead will start Effient ( preferred in population) vs Plavix when okay w/ GI. Will review w/ Dr. Lyman. BASIA ALVA June 20, 2016 11:22
[2016-06-20 11:32] LABS: CHOLESTEROL/HDL RATIO 4.3
[2016-06-20 15:00] VITALS: BP 139/83
[2016-06-20 19:40] VITALS: BP 109/68
[2016-06-20 23:40] VITALS: BP 117/77
[2016-06-21 03:40] VITALS: BP 116/80
[2016-06-21] MEDS: PANTOPRAZOLE SODIUM IV 80 MG in IV NORMAL SALINE 100ML 100 ML IV SCH (04:56)
[2016-06-21] MEDS: IV NORMAL SALINE 1000ML BAG 1,000 ML IV SCH (06:20)
[2016-06-21 07:00] VITALS: BP 109/76
[2016-06-21] MEDS: INSULIN ASPART 300 UNITS/3 ML INSULN.PEN SQ SCH (08:57)
[2016-06-21 11:00] VITALS: BP 116/78
--- NOTE | 2016-06-21 11:36 | PDOC ---
PROGRESS NOTES Chief Complaint Chief Complaint -Hematemesis -Acute blood loss anemia -Upper GI bleed w/ gastric ulceration -Elevated BUN from gastric blood -Moderate malnutrition -Possible cirrhosis of liver History of Present Illness History of Present Illness Mr. Lacey was in NAD when we saw him. He states that he is ready to go home. Discussed care with nurse. Work note given "Return to work on 06/27". Vitals Vitals Vital Signs Date Time Temp Pulse Resp B/P (MAP) Pulse Ox O2 Delivery O2 Flow Rate FiO2 06/21/16 08:00 Room Air 06/21/16 07:00 97.5 80 18 109/76 (87) 97 97.5 Physical Exam General: Alert, Oriented X3, Cooperative, No acute distress Heart: Regular rate, Normal S1, Normal S2 Lungs: Clear Abdomen: Soft, No tenderness Extremities: No cyanosis, No edema Skin: No breakdown, No significant lesion Labs LABS Laboratory Tests Test 06/20/16 11:50 06/20/16 16:53 06/20/16 20:37 06/21/16 07:26 Glucose (Fingerstick) 78 mg/dL (70-99) 196 mg/dL (70-99) 103 mg/dL (70-99) 184 mg/dL (70-99) Review of Systems Review of Systems General: denies weakness GI: denies hematemesis, denies nausea Assessment and Plan Assessmemt and Plan Problems Medical Problems: (1) GI bleed Status: Acute -Hematemesis -Acute blood loss anemia -Upper GI bleed w/ gastric ulceration -Elevated BUN from gastric blood -Moderate malnutrition -Possible cirrhosis of liver Plan: 1. GI recommends resuming Effient in 1 week to allow ulcer healing 2. Schedule follow up EGD in 2 months 3. Cardio- Continue Lipitor and Metoprolol- ok to hold Effient until ok with GI , prefer Effient over Plavix 4. Discharge to home today 5. Follow up with PCP 6. May return to work on Monday06/27/16 Problems: Comment Review of Relevant I have reviewed the following items antione (where applicable) has been applied. Labs Laboratory Tests Test 06/19/16 11:50 06/19/16 13:05 06/19/16 17:32 06/19/16 20:15 Glucose (Fingerstick) 95 mg/dL (70-99) 80 mg/dL (70-99) 89 mg/dL (70-99) White Blood Count 7.9 x10^3/uL (4.0-11.0) Red Blood Count 3.87 x10^6/uL (4.30-5.70) Hemoglobin 11.5 g/dL (13.0-17.5) Hematocrit 34.2 % (39.0-53.0) Mean Corpuscular Volume 88 fL (79-100) Mean Corpuscular Hemoglobin 30 pg (25-35) Mean Corpuscular Hemoglobin Concent 34 g/dL (31-37) Red Cell Distribution Width 14.7 % (11.5-14.5) Platelet Count 201 x10^3/uL (140-400) Test 06/20/16 04:50 06/20/16 07:59 06/20/16 11:50 06/20/16 16:53 White Blood Count 7.7 x10^3/uL (4.0-11.0) Red Blood Count 3.57 x10^6/uL (4.30-5.70) Hemoglobin 10.9 g/dL (13.0-17.5) Hematocrit 31.1 % (39.0-53.0) Mean Corpuscular Volume 87 fL (79-100) Mean Corpuscular Hemoglobin 31 pg (25-35) Mean Corpuscular Hemoglobin Concent 35 g/dL (31-37) Red Cell Distribution Width 14.1 % (11.5-14.5) Platelet Count 199 x10^3/uL (140-400) Neutrophils (%) (Auto) 61 % (31-73) Lymphocytes (%) (Auto) 28 % (24-48) Monocytes (%) (Auto) 5 % (0-9) Eosinophils (%) (Auto) 6 % (0-3) Basophils (%) (Auto) 1 % (0-3) Neutrophils # (Auto) 4.8 x10^3uL (1.8-7.7) Lymphocytes # (Auto) 2.2 x10^3/uL (1.0-4.8) Monocytes # (Auto) 0.4 x10^3/uL (0.0-1.1) Eosinophils # (Auto) 0.4 x10^3/uL (0.0-0.7) Basophils # (Auto) 0.0 x10^3/uL (0.0-0.2) Sodium Level 141 mmol/L (136-145) Potassium Level 3.6 mmol/L (3.5-5.1) Chloride Level 107 mmol/L (98-107) Carbon Dioxide Level 22 mmol/L (21-32) Anion Gap 12 (6-14) Blood Urea Nitrogen 15 mg/dL (8-26) Creatinine 0.6 mg/dL (0.7-1.3) Estimated GFR (Cockcroft-Gault) 145.7 Glucose Level 76 mg/dL (70-99) Calcium Level 8.1 mg/dL (8.5-10.1) Triglycerides Level 87 mg/dL (0-150) Cholesterol Level 100 mg/dL (0-200) LDL Cholesterol, Calculated 60 mg/dL (0-100) VLDL Cholesterol, Calculated 17 mg/dL (0-40) Non-HDL Cholesterol Calculated 77 mg/dL (0-129) HDL Cholesterol 23 mg/dL (40-60) Cholesterol/HDL Ratio 4.3 Glucose (Fingerstick) 76 mg/dL (70-99) 78 mg/dL (70-99) 196 mg/dL (70-99) Test 06/20/16 20:37 06/21/16 07:26 Glucose (Fingerstick) 103 mg/dL (70-99) 184 mg/dL (70-99) Laboratory Tests Test 06/20/16 11:50 06/20/16 16:53 06/20/16 20:37 06/21/16 07:26 Glucose (Fingerstick) 78 mg/dL (70-99) 196 mg/dL (70-99) 103 mg/dL (70-99) 184 mg/dL (70-99) Medications Current Medications Sodium Chloride 1,000 ml @ 1,000 mls/hr 1X ONCE IV Last administered on 08:06; Start 06/18/16 at 08:00; Stop 06/18/16 at 08:59; Status DC Norepinephrine Bitartrate 250 ml @ 0 mls/hr 1X ONCE IV Last administered on 08:09; Start 06/18/16 at 08:00; Stop 06/18/16 at 08:03; Status DC Pantoprazole Sodium 80 mg/ Sodium Chloride 100 ml @ 10 mls/hr 1X ONCE IV Last administered on 06/18/16 13:25; Start 06/18/16 at 08:00; Stop 06/18/16 at 17: 59; Status DC Octreotide Acetate 500 mcg/ Sodium Chloride 101 ml @ 0 mls/hr CONT PRN IV SEE I /O RECORD Last administered on 06/18/16 09:27; Start 06/18/16 at 08:30; Stop 06/18 at 19:31; Status DC Ondansetron HCl (Zofran) 4 mg PRN Q8HRS PRN IV NAUSEA/VOMITING; Start 06/18/16 at 08:45; Stop 06/19/16 at 08:44; Status DC Midazolam HCl (Versed) 5 mg STK-MED ONCE .ROUTE ; Start 06/18/16 at 09:16; Stop 06/18/16 at 09:17; Status DC Fentanyl Citrate (Fentanyl 2ml Vial) 100 mcg STK-MED ONCE .ROUTE ; Start at 09:17; Stop 06/18/16 at 09:18; Status DC Diphenhydramine HCl (Benadryl) 50 mg STK-MED ONCE .ROUTE ; Start 06/18/16 at 09: 17; Stop 06/18/16 at 09:18; Status DC Midazolam HCl (Versed) 5 mg STK-MED ONCE .ROUTE ; Start 06/18/16 at 09:17; Stop 06/18/16 at 09:18; Status DC Fentanyl Citrate (Fentanyl 2ml Vial) 100 mcg STK-MED ONCE IV Last administered on 06/18/16 09:58; Start 06/18/16 at 09:58; Stop 06/18/16 at 10:31; Status DC Midazolam HCl (Versed) 5 mg STK-MED ONCE IV Last administered on 06/18/16 09:58 ; Start 06/18/16 at 09:58; Stop 06/18/16 at 10:31; Status DC Fentanyl Citrate (Fentanyl 2ml Vial) 100 mcg STK-MED ONCE IV Last administered on 06/18/16 10:00; Start 06/18/16 at 10:00; Stop 06/18/16 at 10:31; Status DC Midazolam HCl (Versed) 5 mg STK-MED ONCE IV Last administered on 06/18/16 10:00 ; Start 06/18/16 at 10:00; Stop 06/18/16 at 10:31; Status DC Fentanyl Citrate (Fentanyl 2ml Vial) 100 mcg STK-MED ONCE IV Last administered on 06/18/16 10:02; Start 06/18/16 at 10:02; Stop 06/18/16 at 10:31; Status DC Midazolam HCl (Versed) 5 mg STK-MED ONCE IV Last administered on 06/18/16 10:02 ; Start 06/18/16 at 10:02; Stop 06/18/16 at 10:31; Status DC Fentanyl Citrate (Fentanyl 2ml Vial) 100 mcg STK-MED ONCE IV Last administered on 06/18/16 10:11; Start 06/18/16 at 10:11; Stop 06/18/16 at 10:31; Status DC Midazolam HCl (Versed) 5 mg STK-MED ONCE IV Last administered on 06/18/16 10:11 ; Start 06/18/16 at 10:11; Stop 06/18/16 at 10:31; Status DC Fentanyl Citrate (Fentanyl 2ml Vial) 100 mcg STK-MED ONCE IV Last administered on 06/18/16 10:13; Start 06/18/16 at 10:13; Stop 06/18/16 at 10:31; Status DC Midazolam HCl (Versed) 5 mg STK-MED ONCE IV Last administered on 06/18/16 10:13 ; Start 06/18/16 at 10:13; Stop 06/18/16 at 10:31; Status DC Epinephrine HCl (Adrenalin) 1 mg STK-MED ONCE SQ Last administered on 06/18/16 10:10; Start 06/18/16 at 10:10; Stop 06/18/16 at 10:52; Status DC Epinephrine HCl (Epinephrine Syringe) 1 mg STK-MED ONCE .ROUTE ; Start 06/18/16 at 10:57; Stop 06/18/16 at 10:58; Status DC Insulin Aspart (Novolog) 0-7 UNITS TIDWMEALS SQ Last administered on 06/21/16 08:57; Start 06/18/16 at 17:00 Dextrose (Dextrose 50%-Water Syringe) 12.5 gm PRN Q15MIN PRN IV SEE COMMENTS; Start 06/18/16 at 15:15 Potassium Chloride 100 ml @ 100 mls/hr Q1H IV Last administered on 06/18/16 19 :02; Start 06/18/16 at 16:00; Stop 06/18/16 at 17:59; Status DC Fentanyl Citrate (Fentanyl 2ml Vial) 50 mcg PRN Q2HR PRN IV PAIN; Start at 16:15 Sodium Chloride 1,000 ml @ 125 mls/hr Q8H IV Last administered on 06/21/16 06: 20; Start 06/18/16 at 20:00 Pantoprazole Sodium 80 mg/ Sodium Chloride 100 ml @ 10 mls/hr Q10H IV Last administered on 06/21/16 04:56; Start 06/18/16 at 23:00 Active Scripts Active Metoprolol Tartrate 25 Mg Tablet 1 Tab PO BID Lipitor (Atorvastatin Calcium) 80 Mg Tablet 1 Tab PO DAILY Effient (Prasugrel Hcl) 10 Mg Tablet 1 Tab PO DAILY Vitals/I & O Vital Sign - Last 24 Hours 06/20/16 06/20/16 06/20/16 06/20/16 15:00 19:40 20:00 23:40 Temp 98.3 98.2 98.1 98.3 98.2 98.1 Pulse 84 84 80 Resp 20 18 18 B/P (MAP) 139/83 (101) 109/68 (82) 117/77 (90) Pulse Ox 97 98 97 O2 Delivery Room Air Room Air Room Air Room Air 06/21/16 06/21/16 06/21/16 03:40 07:00 08:00 Temp 97.5 97.5 97.5 97.5 Pulse 85 80 Resp 18 18 B/P (MAP) 116/80 (92) 109/76 (87) Pulse Ox 97 97 O2 Delivery Room Air Room Air Room Air Intake and Output 06/20/16 06/20/16 06/21/16 15:00 23:00 07:00 Intake Total 100 ml 150 ml Balance 100 ml 150 ml CASTLE,NIAL K III DO June 21, 2016 11:36
--- NOTE | 2016-06-21 14:06 | PDOC ---
Subjective: Subjective: No bleeding, no pain. Family translates. Objective: Vital Signs: Vital Signs Date Time Temp Pulse Resp B/P (MAP) Pulse Ox O2 Delivery O2 Flow Rate FiO2 06/21/16 11:00 97.6 75 18 116/78 (91) 97 Room Air 97.6 Labs: Laboratory Tests Test 06/20/16 16:53 06/20/16 20:37 06/21/16 07:26 Glucose (Fingerstick) 196 mg/dL (70-99) 103 mg/dL (70-99) 184 mg/dL (70-99) PE: GEN: NAD LUNGS: CTAB HEART: RRR ABD: S/ND/NT NEURO/PSYCH: A & O 3 A/P: Hematemesis, melena - resolved Gastric ulcer s/p endotherapy 06/18 Anemia -Hgb stable CAD w/ CARLEY -- DC okay per GI. Continue PPI. Follow-up in 2 months for outpt EGD to confirm healing. Okay for Effient x 1 week - avoid Plavix. BASIA ALVA June 21, 2016 14:06
== END 2016-06-21 13:05 | disposition home or self-care (01) | DRG 378 ==
LOC: ER 07:21 → 1 WEST ICU 08:30 → 6 SOUTH 06-19 12:30
PROVIDERS: ADMIT Internal Medicine; ATTEND Internal Medicine
PROC: 3E0G8GC Introduction of Other Therapeutic Substance into Upper GI, Via Natural or Artificial Opening Endoscopic (ICD-10-PCS; 2016-06-18)
PROC: 0W3P8ZZ Control Bleeding in Gastrointestinal Tract, Via Natural or Artificial Opening Endoscopic (ICD-10-PCS; principal; 2016-06-18 09:00)
PROC: 30230N1 Transfusion of Nonautologous Red Blood Cells into Peripheral Vein, Open Approach (ICD-10-PCS; 2016-06-18 09:00)
DX: K25.4 Chronic or unspecified gastric ulcer with hemorrhage (principal); D62 Acute posthemorrhagic anemia; E44.0 Moderate protein-calorie malnutrition; Z68.26 Body mass index [BMI] 26.0-26.9, adult; E78.5 Hyperlipidemia, unspecified; I11.9 Hypertensive heart disease without heart failure; I25.2 Old myocardial infarction; Z87.19 Personal history of other diseases of the digestive system; Z90.49 Acquired absence of other specified parts of digestive tract; I25.10 Atherosclerotic heart disease of native coronary artery without angina pectoris; Z98.61 Coronary angioplasty status
CPT/HCPCS: 36415; 36600; 74022; 80048; 80053; 80061; 80076; 82140; 82274; 82553; 82805; 82947; 84484; 85027; 85610; 85730; 86850; 86900; 86901; 86920; 87641; 93005; 96361; 96365; 96367; C9113; J0171; J1200; J1815; J2250; J2354; J3010; J3480; J7030; P9016; 99291-25

== ENCOUNTER → 2016-08-18 | Day surgery (SDC) | payer BC ==
[~2016-08-18] MED LIST changes: -ASPI325T4 PO; +ASPI325T8 PO; +HYDROmorphone 2 MG/ML VIAL IV PRN; +LIDOCAINE 1% 1 ML SYRINGE. ID PRN; +LIDOCAINE 2% PF Vial for OR 5 ML VIAL. ONE; +MORPHINE SULFATE 2 MG/ML DISP.SYRIN. IV PRN; +ONDANSETRON PF 4 MG/2 ML VIAL. IV PRN; +PROCHLORPERAZINE 10 MG/2 ML VIAL. IV PRN; +PROPOFOL 20 ML IV ONE; +fentaNYL PF VIAL 100 MCG/2 ML VIAL IV PRN
[2016-08-18] MEDS: IV RINGERS,LACTATED 1000ML 1,000 ML IV SCH ×2 (11:09→11:21)
--- NOTE | 2016-08-18 12:23 | PDOC2 ---
GI CONSULT Reason For Consult: EGD, h/o gastric ulcer HPI: HPI: 45 y/o Jomar male who underwent EGD in 06/2015 for hematemesis, melena, and anemia which showed bleeding gastric ulcer on the lesser curve, treated w/ cautery and epinephrine injection. Was advised to continue PPI. Additional discussion was had w/ cardiology re: CAD and h/o stent w/ need for antiplatelet/ Effient. He presents today for follow-up EGD as recommended to asses for healing. PMH: PMH: CAD, FL, HLD, PUD, PCI/CARLEY Social History: Smoke: No ALCOHOL: none (quit) Drugs: None ROS: GEN: Denies fevers, chills, sweats HEENT: Denies blurred vision, sore throat CV: Denies chest pain RESP: Denies shortness of air, cough GI: Per HPI : Denies hematuria, dysuria ENDO: Denies weight changes NEURO: Denies confusion, dizziness MSK: Denies weakness, joint pain/swelling SKIN: Denies jaundice, pruritus Vitals: Vitals: Vital Signs Date Time Temp Pulse Resp B/P (MAP) Pulse Ox O2 Delivery O2 Flow Rate FiO2 08/18/16 10:59 98 68 18 97 98.0 Allergies: Coded Allergies: No Known Drug Allergies (Unverified , 08/18/16) Medications: Current Medications Medications (Trade) Dose Ordered Sig/Neel Route PRN Reason Start Time Stop Time Status Last Admin Dose Admin Ringer's Solution 1,000 ml @ 30 mls/hr Q24H IV 08/18/16 07:00 08/18/16 18:59 08/18/16 11:21 30 MLS/HR Please see EMR. PE: GEN: NAD HEENT: Atraumatic, PERRL LUNGS: CTAB HEART: RRR ABD: NABS, S/ND/NT EXTREMITY: No edema SKIN: No rashes, no jaundice NEURO/PSYCH: A & O 3 A/P: A/P: Gastric ulcer -on EGD in 06/2016, performed for hematemesis/melena -- Proceed w/ EGD to asses for healing of gastric ulcer. Additional recommendations pending findings. BASIA ALVA Aug 18, 2016 12:23
[2016-08-18 12:51] VITALS: BP 119/70
== END | disposition home or self-care (01) ==
LOC: SURG 10:44
PROVIDERS: ATTEND Internal Medicine Gastroenterology
DX: K25.7 Chronic gastric ulcer without hemorrhage or perforation (principal); I10 Essential (primary) hypertension; K21.9 Gastro-esophageal reflux disease without esophagitis; I25.10 Atherosclerotic heart disease of native coronary artery without angina pectoris; E78.00 Pure hypercholesterolemia, unspecified; K29.50 Unspecified chronic gastritis without bleeding
CPT/HCPCS: 43235; J2704; J2001

== ENCOUNTER 2016-11-06 11:10 | Emergency (ER) | payer BC ==
[~2016-11-06 11:10] MED LIST changes: -HYDROmorphone 2 MG/ML VIAL IV PRN; -LIDOCAINE 1% 1 ML SYRINGE. ID PRN; -LIDOCAINE 2% PF Vial for OR 5 ML VIAL. ONE; -MORPHINE SULFATE 2 MG/ML DISP.SYRIN. IV PRN; -ONDANSETRON PF 4 MG/2 ML VIAL. IV PRN; -PROCHLORPERAZINE 10 MG/2 ML VIAL. IV PRN; -PROPOFOL 20 ML IV ONE; -fentaNYL PF VIAL 100 MCG/2 ML VIAL IV PRN
[2016-11-06] MEDS ORDERED: IV NORMAL SALINE 1000ML BAG 1,000 ML IV SCH (12:10)
--- NOTE | 2016-11-06 12:12 | PHYS DOC ---
Past Medical History Past Medical History: CAD, Heart Disease Past Surgical History: Other Additional Past Surgical Histo: cardiac stents Alcohol Use: Occasionally Drug Use: None Adult General Chief Complaint Chief Complaint: CHEST PAIN HPI HPI Patient is a 46 year old male who presents with complaint of intermittent chest pain. Patient states that his chest pain started yesterday evening and has been coming and going since then. Patient states that the pain is sharp and located in his upper abdomen and lower chest. Patient denies radiation of pain and denies associated symptoms including diaphoresis, shortness of breath, or nausea. The patient however does have history of coronary artery disease with recent placement of stents within the last 2 years. Patient follows a Dr. Sweeney of cardiology and Dr. Rg for primary care. The patient has not taken any medications for his symptoms. Patient states currently he is not having pain. The patient denies any known exacerbating or alleviating factors and states that the pain has been occurring in a random pattern. Review of Systems Review of Systems Constitutional: Denies fever or chills [] Eyes: Denies change in visual acuity, redness, or eye pain [] HENT: Denies nasal congestion or sore throat [] Respiratory: Denies cough or shortness of breath [] Cardiovascular: Chest pain[] GI: Denies abdominal pain, nausea, vomiting, bloody stools or diarrhea [] : Denies dysuria or hematuria [] Musculoskeletal: Denies back pain or joint pain [] Integument: Denies rash or skin lesions [] Neurologic: Denies headache, focal weakness or sensory changes [] Current Medications Current Medications Current Medications Medications (Trade) Dose Ordered Sig/[facility] Start Time Stop Time Status Last Admin Dose Admin Aspirin (Children'S Aspirin) 324 mg 1X ONCE 11/06/16 12:15 11/06/16 12:16 DC 11/06/16 12:15 324 MG Sodium Chloride 1,000 ml @ 1,000 mls/hr Q1H 11/06/16 12:10 11/06/16 13:09 DC 11/06/16 12:10 1,000 MLS/HR Allergies Allergies Allergies Coded Allergies Type Severity Reaction Last Updated Verified No Known Drug Allergies 08/18/16 No Physical Exam Physical Exam Constitutional: Well developed, well nourished, no acute distress, non-toxic appearance. [] HENT: Normocephalic, atraumatic, bilateral external ears normal, oropharynx moist, no oral exudates, nose normal. [] Eyes: PERRLA, EOMI, conjunctiva normal, no discharge. [] Neck: Normal range of motion, no tenderness, supple, no stridor. [] Cardiovascular:Heart rate regular rhythm, no murmur [] Lungs & Thorax: Bilateral breath sounds clear to auscultation [] Abdomen: Bowel sounds normal, soft, no tenderness, no masses, no pulsatile masses. [] Skin: Warm, dry, no erythema, no rash. [] Back: No tenderness, no CVA tenderness. [] Extremities: No tenderness, no cyanosis, no clubbing, ROM intact, no edema. [] Neurologic: Alert and oriented X 3, normal motor function, normal sensory function, no focal deficits noted. [] Psychologic: Affect normal, judgement normal, mood normal. [] Current Patient Data Vital Signs Vital Signs Date Time Temp Pulse Resp B/P (MAP) Pulse Ox O2 Delivery O2 Flow Rate FiO2 11/06/16 11:18 98.0 59 14 132/94 (107) 97 Room Air 98.0 Lab Values Laboratory Tests Test 11/06/16 11:25 White Blood Count 6.8 x10^3/uL (4.0-11.0) Red Blood Count 5.20 x10^6/uL (4.30-5.70) Hemoglobin 15.3 g/dL (13.0-17.5) Hematocrit 44.8 % (39.0-53.0) Mean Corpuscular Volume 86 fL (79-100) Mean Corpuscular Hemoglobin 29 pg (25-35) Mean Corpuscular Hemoglobin Concent 34 g/dL (31-37) Red Cell Distribution Width 14.1 % (11.5-14.5) Platelet Count 257 x10^3/uL (140-400) Neutrophils (%) (Auto) 54 % (31-73) Lymphocytes (%) (Auto) 34 % (24-48) Monocytes (%) (Auto) 5 % (0-9) Eosinophils (%) (Auto) 6 % (0-3) H Basophils (%) (Auto) 1 % (0-3) Neutrophils # (Auto) 3.7 x10^3uL (1.8-7.7) Lymphocytes # (Auto) 2.3 x10^3/uL (1.0-4.8) Monocytes # (Auto) 0.4 x10^3/uL (0.0-1.1) Eosinophils # (Auto) 0.4 x10^3/uL (0.0-0.7) Basophils # (Auto) 0.1 x10^3/uL (0.0-0.2) Sodium Level 141 mmol/L (136-145) Potassium Level 3.6 mmol/L (3.5-5.1) Chloride Level 104 mmol/L (98-107) Carbon Dioxide Level 31 mmol/L (21-32) Anion Gap 6 (6-14) Blood Urea Nitrogen 18 mg/dL (8-26) Creatinine 0.8 mg/dL (0.7-1.3) Estimated GFR (Cockcroft-Gault) 104.1 Glucose Level 113 mg/dL (70-99) H Calcium Level 9.2 mg/dL (8.5-10.1) Magnesium Level 1.9 mg/dL (1.8-2.4) Total Bilirubin 0.6 mg/dL (0.2-1.0) Direct Bilirubin 0.1 mg/dL (0.0-0.2) Aspartate Amino Transferase (AST) 15 U/L (15-37) Alanine Aminotransferase (ALT) 26 U/L (16-63) Alkaline Phosphatase 56 U/L (46-116) Creatine Kinase 121 U/L (39-308) Creatine Kinase MB (Mass) 1.1 ng/mL (0.0-3.6) Creatine Kinase MB Relative Index 0.9 % (0-4) Troponin I Quantitative < 0.017 ng/mL (0.000-0.055) Total Protein 7.7 g/dL (6.4-8.2) Albumin 3.8 g/dL (3.4-5.0) Lipase 136 U/L (73-393) Laboratory Tests 11/06/16 11:25 Laboratory Tests 11/06/16 11:25 EKG EKG Interpreted by me: Heart rate 61, sinus rhythm, normal intervals, normal axis, no acute ST/T-wave abnormalities present[] Radiology/Procedures Radiology/Procedures [facility] [address] [place] [address] IMAGING REPORT Signed PATIENT: BUNNY DAMON ACCOUNT: [id number] : 1970 LOCATION: ER AGE: 46 SEX: M EXAM STATUS: REG ER ORD. PHYSICIAN: STORM LINDO MD REASON: chest pain PROCEDURE: PORTABLE CHEST 1V AP portable chest radiograph 11/06/2016 Clinical History: Chest pain. An AP portable erect digital radiograph of the chest was obtained. Comparison study is dated 06/18/2016. The cardiac silhouette is normal in size. The thoracic aorta is mildly tortuous. No acute pulmonary infiltrate is seen. No pleural effusion or pneumothorax is noted. The osseous structures are grossly intact. Impression: No acute abnormality is seen. DICTATED and SIGNED BY: BROCK RADER MD DATE: 11/06/16 1236 CC: STORM LINDO MD; JACQUE RG MD ~ [] Course & Med Decision Making Course & Med Decision Making Pertinent Labs and Imaging studies reviewed. (See chart for details) Patient was given aspirin in the emergency department. Patient's initial lab work showed a normal troponin level and EKG shows a nonspecific repolarization morphology. Given the patient's unpredictable nature of symptoms as well as his previous history of coronary artery disease and myocardial infarction, the patient requires admission to the hospital for affective rule out of acute coronary syndrome. The patient however states that he does not want to be admitted the hospital. I explained to the patient due to his history and unpredictable nature of symptoms, the patient cannot safely be discharged home without appropriate cardiac evaluation as this could result in potential harm or even . The patient voiced understanding of this risk and stated that he would like to go home. The patient states that he will sign out AGAINST MEDICAL ADVICE. 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 Information on the patient was also faxed to Dr. Sweeney's office to contact patient tomorrow to recommend follow-up in one to 2 days for reevaluation. Advised return emergency department for any worsening symptoms. Dragon Disclaimer Dragon Disclaimer This electronic medical record was generated, in whole or in part, using a voice recognition dictation system. Departure Departure Impression: Primary Impression: Chest pain Additional Impression: CAD (coronary artery disease) Disposition: HOME, SELF-CARE Condition: GUARDED Referrals: JACQUE RG MD (PCP) KIMBERLY SWEENEY MD Patient Instructions: Chest Pain (Nonspecific) Additional Instructions: Please follow-up tomorrow with your show host/hostess, Dr. Sweeney. You signed out AGAINST MEDICAL ADVICE from the emergency department. If you have any worsening symptoms please return for reevaluation immediately. Problem Qualifiers Primary Impression: Chest pain Chest pain type: unspecified Qualified Codes: R07.9 - Chest pain, unspecified Additional Impression: CAD (coronary artery disease) Coronary Disease-Associated Artery/Lesion type: [place] artery [place] vs. transplanted heart: [place] heart Associated angina: with unspecified angina Qualified Codes: I25.119 - Atherosclerotic heart disease of [place] coronary artery with unspecified angina pectoris STORM LINDO MD Nov 06, 2016 12:12
[2016-11-06] MEDS ORDERED: ASPIRIN CHEWABLE 81 MG TABLET. PO ONE (12:15)
[2016-11-06 12:23] LABS: BASO # 0.1 x10^3/uL (0.0-0.2); BASO % 1 % (0-3); EOS % 6 % (0-3); HEMATOCRIT 44.8 % (39.0-53.0); HEMOGLOBIN 15.3 g/dL (13.0-17.5); LYMPH # 2.3 x10^3/uL (1.0-4.8); LYMPH % 34 % (24-48); MEAN CORPUSCULAR HEMOGLOBIN 29 pg (25-35); MEAN CORPUSCULAR HGB CONC 34 g/dL (31-37); MEAN CORPUSCULAR VOLUME 86 fL (79-100); MONO % 5 % (0-9); NEUT % 54 % (31-73); PLATELET COUNT 257 x10^3/uL (140-400); RED CELL DISTRIBUTION WIDTH 14.1 % (11.5-14.5); WHITE BLOOD COUNT 6.8 x10^3/uL (4.0-11.0)
[2016-11-06 12:38] LABS: CALCIUM 9.2 mg/dL (8.5-10.1); CREATININE 0.8 mg/dL (0.7-1.3); GFR 104.1; POTASSIUM 3.6 mmol/L (3.5-5.1)
--- NOTE | 2016-11-06 12:39 | RAD ---
AP portable chest radiograph 11/06/2016 Clinical History: Chest pain. An AP portable erect digital radiograph of the chest was obtained. Comparison study is dated 06/18/2016. The cardiac silhouette is normal in size. The thoracic aorta is mildly tortuous. No acute pulmonary infiltrate is seen. No pleural effusion or pneumothorax is noted. The osseous structures are grossly intact. Impression: No acute abnormality is seen.
[2016-11-06 12:49] LABS: ALBUMIN 3.8 g/dL (3.4-5.0); DIRECT BILIRUBIN 0.1 mg/dL (0.0-0.2); MAGNESIUM 1.9 mg/dL (1.8-2.4); TOTAL BILIRUBIN 0.6 mg/dL (0.2-1.0); TOTAL PROTEIN 7.7 g/dL (6.4-8.2)
[2016-11-06 12:50] LABS: CKMB MASS 1.1 ng/mL (0.0-3.6)
[2016-11-06 13:45] VITALS: BP 112/75
--- NOTE | 2016-11-07 07:41 | EKG ---
[facility] [address] [place] [address] Test Date: 2016-11-06 Test Time: 11:11:00 Pat Name: BUNNY DAMON Department: Room: Gender: M Cook Vegetable: : 1970 Requested By: STORM LINDO Order Number: [id number] Reading MD: Measurements Intervals Ellis Rate: 61 P: -23 DE: 186 QRS: 72 QRSD: 94 T: 50 QT: 374 QTc: 378 Interpretive Statements SINUS RHYTHM QRS(T) CONTOUR ABNORMALITY CANNOT RULE OUT ANTEROSEPTAL MYOCARDIAL DAMAGE RI6.01 Unconfirmed report No previous ECG available for comparison
== END 2016-11-06 13:50 | disposition home or self-care (01) ==
LOC: ER 11:10
DX: R07.89 Other chest pain (principal); I25.119 Atherosclerotic heart disease of native coronary artery with unspecified angina pectoris; Z95.5 Presence of coronary angioplasty implant and graft; Z79.82 Long term (current) use of aspirin
CPT/HCPCS: 36415; 71010; 80048; 80076; 82553; 83690; 83735; 84484; 85025; 93005; 99285; J7030

== ENCOUNTER 2016-11-22 09:24 | Inpatient (IN) | payer BC ==
[2016-11-22] VITALS (10 sets, daily range): BP systolic 107–141; BP diastolic 65–94
[~2016-11-22] VITALS: Ht 170.2 cm; Wt 84.0 kg
[2016-11-22 09:56] LABS: HEMATOCRIT 43.8 % (39.0-53.0); HEMOGLOBIN 14.6 g/dL (13.0-17.5); RED BLOOD COUNT 5.14 x10^6/uL (4.30-5.70); RED CELL DISTRIBUTION WIDTH 13.9 % (11.5-14.5); WHITE BLOOD COUNT 6.5 x10^3/uL (4.0-11.0)
[2016-11-22 10:07] LABS: PROTHROMBIN TIME PATIENT 12.9 SEC (11.7-14.0)
[2016-11-22 10:12] LABS: CALCIUM 8.3 mg/dL (8.5-10.1); CREATININE 0.8 mg/dL (0.7-1.3); GFR 104.1; POTASSIUM 3.8 mmol/L (3.5-5.1)
[2016-11-22] MEDS ORDERED: IOHEXOL 300 MG/ML 100ML VIAL. ONE ×2 (10:15→11:18)
[2016-11-22] MEDS ORDERED: LIDOCAINE 2% 20 ML VIAL. ONE (10:15)
[2016-11-22] MEDS ORDERED: MIDAZOLAM HCL/PF 2 MG/2 ML VIAL. ONE (10:36)
[2016-11-22] MEDS ORDERED: fentaNYL PF VIAL 100 MCG/2 ML VIAL ONE (10:36)
[2016-11-22] MEDS ORDERED: HEPARIN for IV BOLUS 10,000 UNIT/10 ML VIAL. ONE (10:37)
[2016-11-22] MEDS ORDERED: NITROGLYCERIN 200 MCG/2 ML SYRINGE FOR CATH/VASC LAB. ONE (10:37)
[2016-11-22] MEDS ORDERED: VERAPAMIL 5 MG/2 ML VIAL. ONE (10:37)
[2016-11-22] MEDS: IV 1/2 NORMAL SALINE 1,000 ML IV SCH (11:00)
[2016-11-22] MEDS ORDERED: BIVALIRUDIN 250 MG VIAL. IV ONE ×2 (11:03→11:30)
[2016-11-22] MEDS ORDERED: fentaNYL PF VIAL 100 MCG/2 ML VIAL IV ONE (11:30)
[2016-11-22] MEDS ORDERED: MIDAZOLAM HCL/PF 2 MG/2 ML VIAL. IV ONE (11:30)
[2016-11-22] MEDS ORDERED: HEPARIN for IV BOLUS 10,000 UNIT/10 ML VIAL. IART ONE (11:30)
[2016-11-22] MEDS ORDERED: VERAPAMIL 5 MG/2 ML VIAL. IART ONE (11:30)
[2016-11-22] MEDS ORDERED: IOHEXOL 300 MG/ML 100ML VIAL. IART ONE (11:30)
[2016-11-22] MEDS ORDERED: CONTRAST GIVEN MC PRN (11:30)
[2016-11-22] MEDS ORDERED: NITROGLYCERIN 200 MCG/2 ML SYRINGE FOR CATH/VASC LAB. IART ONE (11:30)
[2016-11-22] MEDS ORDERED: LIDOCAINE 2% 20 ML VIAL. IJ ONE (11:30)
[2016-11-22] MEDS ORDERED: ASPIRIN 325 MG TABLET ONE (11:41)
[2016-11-22] MEDS ORDERED: CLOPIDOGREL BISULFATE 75 MG TABLET ONE (11:42)
[2016-11-22] MEDS ORDERED: CLOPIDOGREL BISULFATE 75 MG TABLET PO ONE (11:45)
[2016-11-22] MEDS ORDERED: ASPIRIN 325 MG TABLET PO ONE (11:45)
--- NOTE | 2016-11-22 11:51 | PDOC ---
MODERATE SEDATION ASSESSMENT RISKS/ALTERNATIVES Risks/Alternatives Risks and alternatives of this type of sedation and procedure discussed with: RISK/ALTERNATIVES: Patient H & P ON CHART H & P H & P on chart and reviewed for co-morbid conditions and appropriate labs. H&P ON CHART: Yes STATUS PREG STATUS ASSESSED: N/A MEDS/ALLERGIES REVIEWED Meds/Allergies Reviewed Medications and Allergies including time and route of recently administered narcotics and sedatives. MEDS/ALLERGIES REVIEWED: Yes ASA RATING ASA RATING: II AIRWAY ASSESSMENT Airway Assessment Airway patency, oral function limitations, presence of caps, crowns, dentures, partials, and ability to extend neck assessed. AIRWAY ASSESSMENT: Yes MALLAMPATI SCORE MALLAMPATI SCORE: II PRE-SEDATION ASSESSMENT PRE-SEDATION ASSESSMENT: Yes KIMBERLY SWEENEY MD Nov 22, 2016 11:51
[2016-11-22] MEDS ORDERED: NITROGLYCERIN SUBLINGUAL 0.4 MG BOTTLE OF 25. SL PRN (12:00)
[2016-11-22] MEDS ORDERED: ACETAMINOPHEN 325 MG TABLET. PO PRN (12:00)
[2016-11-22] MEDS ORDERED: INFLUENZA VAX SCREEN BY RX. MC ONE (17:30)
[2016-11-22] MEDS ORDERED: PNEUMOCOCCAL VAX SCREEN BY RX. MC ONE (17:30)
[2016-11-22] MEDS ORDERED: ATORVASTATIN CALCIUM 20 MG TABLET PO SCH (21:00)
[2016-11-23] MEDS: IV 1/2 NORMAL SALINE 1,000 ML IV SCH (01:11)
[2016-11-23 03:40] VITALS: BP 129/81
--- NOTE | 2016-11-23 06:37 | CARD ---
APPROVED REPORT Procedure(s) performed: 1. Left heart catheterization, selective coronary angiography and left ventr iculography via right transradial approach 2. Instant Wave Free Ratio (IFR) to right coronary and left anterior descending arteries 3. Successful PCI/stent placement to the left circumflex artery Moderate Sedation: 64 Minutes INDICATION The indication(s) include : unstable angina . PROCEDURE NARRATIVE After explaining the risks, benefits and alternative options, informed consent was obtained from wild ent. Patient was brought to the cardiac Maintenance Department Technician and right wrist was prepped and draped in the usual fashion after confirming a positive modified Luca's test. Arterial access was obtained in the righ t radial artery and a 6 Sammarinese sheath was inserted. 6 Sammarinese Tim catheter was used to perform isabel ective angiography of the left and right coronary arteries. 6 Sammarinese pigtail catheter was used to pe rform left ventriculography. Since patient was found to have angiographically borderline significant stenoses involving the right coronary and left anterior descending arteries, a decision was made to p erform physiologic assessment using Instant Wave Free Ratio (IFR). The right coronary artery stenosi s was then crossed with Bethel Verrata PressureWire and IFR measurement was made that was physiologi ashley not significant at 0.94. Subsequently, the left main coronary artery was engaged with 6 Sammarinese XB 3.5 guide catheter and the stenosis in the mid to distal segment was crossed with the same Pressur eWire and IFR measurement was made that was physiologically not significant at 0.97. FINDINGS 1. Hemodynamics: Left ventricular end-diastolic pressure of 18 mmHg. No pullback gradient across th e aortic valve. 2. Left ventriculography: Normal left ventricle systolic function with ejection fraction estimated at 60%. No significant mitral regurgitation seen. 3. Coronary angiography: a. The left main coronary artery arose from the left sinus of Valsalva, gave rise to the left anteri or descending and left circumflex arteries and did not show any significant stenosis. b. The left anterior descending artery showed a patent stent in the midsegment. There is a 50% steno sis noted in the mid to distal segment there was found to be physiologically not significant based on IFR measurement of 0.97. c. The left circumflex artery showed widely patent stent in the midsegment. There were two tandem 90 % stenoses noted in the proximal to mid segment. d. The right coronary artery was a large and dominant vessel arising from the right sinus of Valsalv a that showed a widely patent stent in the proximal segment of the posterolateral branch. The midsegm ent showed 60% stenosis that was found to be physiologically not significant based on IFR measurement of 0.94. INTERVENTION The left main coronary artery was previously engaged with 6 Sammarinese XB 3.5 guide catheter for IFR lauren urement on LAD as stated above. The same PressureWire was used to cross the tandem lesions in the pro ximal to midsegment of the left circumflex artery. These lesions were successfully treated with a 3.0 x 28 mm MultiLink vision stent that was postdilated with a 3.25 x 15 mm NC trek noncompliant balloon . Follow-up angiography showed resolution of the stenosis to 0% with FABIANO-3 distal flow. Patient geovany rated the procedure well. Hemostasis was achieved using TR band. There were no immediate complication s. Conclusion 1. Severe single-vessel coronary artery disease involving the left circumflex artery and nonobstruct magy lesions in the right coronary and left anterior descending arteries as evidenced by IFR measureme nt. The previously placed stents in the right coronary artery, left anterior descending and left circ umflex arteries were widely patent. 2. Successful PCI/stent placement to the left circumflex artery. 3. Normal left ventricle systolic function with ejection fraction estimated at 60%. Recommendations 1. Aspirin 325 mg daily 2. Plavix 75 mg daily for preferably one year 3. Aggressive cardiovascular risk factor modification
[2016-11-23 07:50] VITALS: BP 136/83
[2016-11-23] MEDS ORDERED: CLOPIDOGREL BISULFATE 75 MG TABLET PO SCH (08:00)
[2016-11-23] MEDS ORDERED: ASPIRIN ENTERIC COATED 325 MG TABLET.DR. PO SCH (08:00)
[2016-11-23] MEDS ORDERED: FLU VACC QS2017-18 (36MOS+)/PF 0.5 ML SYRINGE. VAX IM ONE (09:00)
[2016-11-23] MEDS ORDERED: PNEUMOC CONJ VACC 23-VALENT 0.5 ML VIAL. VAX IM ONE (09:00)
[2016-11-23 11:52] VITALS: BP 127/87
[2016-11-23] MEDS ORDERED: ASPI325T11 PO (13:04)
[2016-11-23] MEDS ORDERED: LISI2.5T PO (13:04)
--- NOTE | 2016-11-23 13:08 | PDOC3 ---
ABBEY VAZQUEZ OPTOMECHANICAL TECHNICIAN 11/23/16 1308: Discharge Summary Visit Information Date of Admission: Nov 22, 2016 Date of Discharge: Nov 23, 2016 Admitting Diagnosis: CAD, unstable angina Final Diagnosis PCI/BMS to LCx; CAD/unstable angina Brief Hospital Course Allergies Allergies Coded Allergies Type Severity Reaction Last Updated Verified No Known Drug Allergies 08/18/16 No Vital Signs Vital Signs Date Time Temp Pulse Resp B/P (MAP) Pulse Ox O2 Delivery O2 Flow Rate FiO2 11/23/16 11:52 98.2 70 18 127/87 (100) 98 Room Air 98.2 11/22/16 11:52 2.0 Lab Results Laboratory Tests Test 11/22/16 09:50 White Blood Count 6.5 x10^3/uL (4.0-11.0) Red Blood Count 5.14 x10^6/uL (4.30-5.70) Hemoglobin 14.6 g/dL (13.0-17.5) Hematocrit 43.8 % (39.0-53.0) Mean Corpuscular Volume 85 fL (79-100) Mean Corpuscular Hemoglobin 28 pg (25-35) Mean Corpuscular Hemoglobin Concent 33 g/dL (31-37) Red Cell Distribution Width 13.9 % (11.5-14.5) Platelet Count 271 x10^3/uL (140-400) Prothrombin Time 12.9 SEC (11.7-14.0) Prothromb Time International Ratio 1.0 (0.8-1.1) Activated Partial Thromboplast Time 35 SEC (24-38) Sodium Level 138 mmol/L (136-145) Potassium Level 3.8 mmol/L (3.5-5.1) Chloride Level 104 mmol/L (98-107) Carbon Dioxide Level 28 mmol/L (21-32) Anion Gap 6 (6-14) Blood Urea Nitrogen 17 mg/dL (8-26) Creatinine 0.8 mg/dL (0.7-1.3) Estimated GFR (Cockcroft-Gault) 104.1 Glucose Level 125 mg/dL (70-99) Calcium Level 8.3 mg/dL (8.5-10.1) Brief Hospital Course Mr Lacey is a pleasant 46 yo male admitted for elective LHC with known CAD. He was recently seen in our office and was noted with CP suspicious for ischemic etiology. With LHC he was noted with two tandem 90% stenoses noted in the proximal to mid segment. Via right transradial approach PCI/BMS was performed to LCx. The previously placed stents in the right coronary artery, left anterior descending and left circumflex arteries were widely patent. He tolerated procedure well. No CP, SOA, and the right wrist arteriotomy site is intact. EF is at 60%. Ambulatory without difficulty. VSS. HE did well overnight and no complications. Pt is to resume his home meds with addition of lisinopril and DAPT with ASA 325 mg and plavix 75 mg daily. Post cath instruction is to be reviewed by staff with interpretation and pt is to follow up in office in 4 weeks. Encouraged cardiac rehab. Discharge Information Condition at Discharge: Stable Follow Up: Weeks (4) Disposition/Orders: D/C to Home Scheduled Aspirin (Aspirin Ec), 1 TAB PO DAILY Atorvastatin Calcium (Lipitor), 1 TAB PO DAILY Clopidogrel Bisulfate (Clopidogrel), 1 TAB PO DAILY, (Reported) Lisinopril (Lisinopril), 1 TAB PO DAILY Metoprolol Tartrate (Metoprolol Tartrate), 1 TAB PO BID Discontinued Medications Info (No Known Medications Prior To Admisstion), 1 EACH MC, (Reported) Prasugrel Hcl (Effient), 1 TAB PO DAILY Patient Instructions Patient Instructions GENERAL INSTRUCTIONS: 1. Your dressing should be removed prior to leaving the hospital. 2. It is OK to shower the day after your procedure. 3. If you received stents, be sure to carry your stent information card with you in your wallet/purse at all times. 4. Call the office immediately at [phone] if you notice any fever or if there is redness, worsening tenderness/pain, increased bruising, or drainage from the puncture site. 5. Should you have bleeding from the site, lie down immediately & put pressure on the site. The pressure should be hard enough to stop the bleeding. Have the nearest person call 911. DO NOT try to drive to the ER with active bleeding. 6. If you notice a change in color, coolness to touch, or loss of feeling in the affected extremity, come to the emergency room. Please have someone drive you or call 911 if no one is available. DO NOT drive yourself. 7. If you normally take glucophage (metformin), please do not take this medicine for 48 hours following your procedure. 8. DO NOT STOP TAKING YOUR PLAVIX OR ASPIRIN UNLESS IT IS CLEARED BY A GEOTHERMAL SYSTEM INSTALLER OF YOUR DOORS PREFITTER AT OUR OFFICE. 9. QUIT SMOKING: the [place] [employer], [place] [employer], & [place] [employer] have cessation resources available on their websites 10. Please have someone available to drive you home from the hospital as you may be limited by sedation medications given during the procedure. Radial Artery (Wrist) access: 1. No pushing, pulling, lifting, typing, or anything that requires repetitive use/movement of the affected wrist for 3 days following your procedure. 2. OK to drive the day following your procedure. (This is because of effects of sedating medications.) Call the office at [phone] for any questions or concerns. KIMBERLY SWEENEY MD 11/23/16 8726: Discharge Summary Brief Hospital Course Brief Hospital Course Patient seen and examined. Agree with DEPOSIT REFUND CLERK's assessment and plan. s/p PCI/stent to LCx, presently chest pain-free. The previous placed stents in LAD/LCx/RCA were patent. The importance of compliance with medications especially dual antiplatelet therapy was reemphasized. Follow-up with our office in 1 month. Discharge Information Scheduled Aspirin (Aspirin Ec), 1 TAB PO DAILY Atorvastatin Calcium (Lipitor), 1 TAB PO DAILY Clopidogrel Bisulfate (Clopidogrel), 1 TAB PO DAILY, (Reported) Lisinopril (Lisinopril), 1 TAB PO DAILY Metoprolol Tartrate (Metoprolol Tartrate), 1 TAB PO BID Discontinued Medications Info (No Known Medications Prior To Admisstion), 1 EACH , (Reported) Prasugrel Hcl (Effient), 1 TAB PO DAILY ABBEY VAZQUEZ APRN Nov 23, 2016 13:08 KIMBERLY SWEENEY MD Nov 23, 2016 18:57
[2016-11-23] MEDS ORDERED: CLOP75TA PO (13:29)
[2016-11-23] MEDS ORDERED: METOPROLOL TART IMMED RELEASE 25 MG TABLET. PO SCH (14:00)
[2016-11-23] MEDS ORDERED: LISINOPRIL 2.5 MG TABLET PO SCH (14:00)
[2016-11-23 16:11] VITALS: BP 127/87
[2016-11-23] MEDS ORDERED: ATORVASTATIN CALCIUM 40 MG TABLET. PO SCH (21:00)
== END 2016-11-23 16:20 | disposition home or self-care (01) | DRG 247 ==
LOC: CCL 09:24 → 2 NORTH 11:00
PROVIDERS: ADMIT Internal Medicine Cardiovascular Disease; ATTEND Internal Medicine Cardiovascular Disease
PROC: B2111ZZ Fluoroscopy of Multiple Coronary Arteries using Low Osmolar Contrast (ICD-10-PCS; principal; 2016-11-22)
PROC: 027034Z Dilation of Coronary Artery, One Artery with Drug-eluting Intraluminal Device, Percutaneous Approach (ICD-10-PCS; 2016-11-22)
PROC: B2151ZZ Fluoroscopy of Left Heart using Low Osmolar Contrast (ICD-10-PCS; 2016-11-22)
PROC: 4A023N7 Measurement of Cardiac Sampling and Pressure, Left Heart, Percutaneous Approach (ICD-10-PCS; 2016-11-22)
DX: I25.110 Atherosclerotic heart disease of native coronary artery with unstable angina pectoris (principal); Z95.5 Presence of coronary angioplasty implant and graft
CPT/HCPCS: 36415; 80048; 85027; 85610; 85730; 90686; 90732; 92928; 93458; 93571; 93572; 99152; 99153; C1725; C1769; C1876; C1887; C1892; J0583; J1644; J2250; J3010; J3490; Q9967; J2001

== ENCOUNTER 2017-12-18 18:28 | Emergency (ER) | payer BC ==
[~2017-12-18] VITALS: Ht 170.2 cm; Wt 56.7 kg
[~2017-12-18 18:28] MED LIST changes: +ASPI-612 PO; +ASPI325T11 PO; +CARV6.252 PO; +CLOP75TA PO; +LISI2.5T PO; +METF500T16 PO
[2017-12-18 19:34] LABS: BASO % 1 % (0-3); EOS # 0.4 x10^3/uL (0.0-0.7); EOS % 6 % (0-3); HEMATOCRIT 45.6 % (39.0-53.0); HEMOGLOBIN 15.9 g/dL (13.0-17.5); LYMPH # 1.9 x10^3/uL (1.0-4.8); LYMPH % 26 % (24-48); MEAN CORPUSCULAR HEMOGLOBIN 31 pg (25-35); MEAN CORPUSCULAR HGB CONC 35 g/dL (31-37); MEAN CORPUSCULAR VOLUME 90 fL (79-100); MONO # 0.5 x10^3/uL (0.0-1.1); MONO % 7 % (0-9); NEUT # 4.4 x10^3uL (1.8-7.7); NEUT % 61 % (31-73); PLATELET COUNT 249 x10^3/uL (140-400); RED BLOOD COUNT 5.05 x10^6/uL (4.30-5.70); RED CELL DISTRIBUTION WIDTH 13.7 % (11.5-14.5); WHITE BLOOD COUNT 7.1 x10^3/uL (4.0-11.0)
[2017-12-18 19:38] LABS: CALCIUM 9.7 mg/dL (8.5-10.1); CREATININE 0.9 mg/dL (0.7-1.3); GFR 90.4; POTASSIUM 3.9 mmol/L (3.5-5.1)
[2017-12-18] MEDS ORDERED: CONTRAST GIVEN. MC PRN (19:45)
[2017-12-18] MEDS ORDERED: IOHEXOL 300 MG/ML 100ML VIAL. IV ONE (19:45)
[2017-12-18 19:46] LABS: PROTHROMBIN TIME PATIENT 12.7 SEC (11.7-14.0)
[2017-12-18 19:52] LABS: FECAL OB PT POSITIVE (NEG)
[2017-12-18] MEDS ORDERED: MORPHINE SULFATE 10 MG/ML VIAL. IV ONE (20:00)
[2017-12-18] MEDS ORDERED: ONDANSETRON PF 4 MG/2 ML VIAL. IV ONE (20:00)
--- NOTE | 2017-12-18 20:12 | RAD ---
EXAM: Abdomen and pelvis CT with intravenous contrast. HISTORY: Rectal bleeding. Abdominal pain. TECHNIQUE: Computed tomographic images of the abdomen and pelvis were obtained following the administration of 75 cc Omnipaque 300 intravenous contrast. Multiplanar reformatting was performed. *One or more of the following individualized dose reduction techniques were utilized for this examination: 1. Automated exposure control. 2. Adjustment of the mA and/or kV according to patient size. 3. Use of iterative reconstruction technique. COMPARISON: None. FINDINGS: Evaluation of the lower thorax demonstrates bilateral lower lobe atelectasis. There is no pleural effusion or pneumothorax. There is cardiomegaly. There is coronary artery atherosclerosis. No hepatic lesion is seen. The gallbladder, pancreas, spleen and adrenal glands are unremarkable. The kidneys are unremarkable. The appendix is surgically absent. There is no evidence of bowel obstruction or abnormal bowel wall thickening. There is a 7 mm rounded fat density lesion along the anterior aspect of the mid sigmoid colon, possibly due to to the sequela of prior epiploic appendagitis. There is increased fat within the right greater than left inguinal canals. There is no lymphadenopathy. There are degenerative changes throughout the spine. IMPRESSION: 1. No convincing diverticulitis or colitis. There is a small rounded fat superior to the lesion adjacent to the sigmoid colon possibly due to the sequela of prior epiploic appendagitis. 2. Otherwise, relatively unremarkable abdomen and pelvis CT. Electronically signed by: Kaylen Granda MD (12/18/2017 8:08 PM) [facility]
[2017-12-18] MEDS ORDERED: SENN1TAB29 PO (21:31)
[2017-12-18] MEDS ORDERED: TRAM50TA PO (21:31)
--- NOTE | 2017-12-18 21:31 | PHYS DOC ---
Past Medical History Past Medical History: CAD, Diabetes-Type II, Heart Disease Additional Past Medical Histor: stent X 1 Past Surgical History: Other Additional Past Surgical Histo: cardiac stents Alcohol Use: Occasionally Drug Use: None Adult General Chief Complaint Chief Complaint: RECTAL BLEED HPI HPI Patient is a 47 year old [place] male with history of rectal bleeding who presents with intermittent bright red rectal bleeding since this afternoon with bowel movements. Patient also reports rectal pain. No abdominal pain. No fever chills, nausea vomiting. No dizziness or lightheadedness. No other symptoms or complaints. Patient recently started antiplatelet for treatment of acute coronary syndrome with stent placement at [facility] one month ago. Previously been evaluated one year ago for rectal pain and bleeding but was not diagnosed as having has not followed up with a primary care physician for additional testing. Patient has not had additional episodes until today. History is obtained by his daughter who assists with translation.[] Review of Systems Review of Systems View symptoms as per history of present illness. All other review symptoms are negative. a [] All other systems were reviewed and found to be within normal limits, except as documented in this note. Current Medications Current Medications Current Medications Medications (Trade) Dose Ordered Sig/Neel Start Time Stop Time Status Last Admin Dose Admin Info (CONTRAST GIVEN -- Rx MONITORING) 1 each PRN DAILY PRN 12/18/17 19:45 12/20/17 19:44 Iohexol (Omnipaque 300 Mg/ml) 75 ml 1X ONCE 12/18/17 19:45 12/18/17 19:46 DC 12/18/17 19:52 75 ML Morphine Sulfate (Morphine Sulfate) 5 mg 1X ONCE 12/18/17 20:00 12/18/17 20:01 DC 12/18/17 19:32 5 MG Ondansetron HCl (Zofran) 4 mg 1X ONCE 12/18/17 20:00 12/18/17 20:01 DC 12/18/17 19:32 4 MG Allergies Allergies Allergies Coded Allergies Type Severity Reaction Last Updated Verified No Known Drug Allergies 08/18/16 No Physical Exam Physical Exam Constitutional: Well developed, well nourished, no acute distress, non-toxic appearance. [] HENT: Normocephalic, atraumatic, bilateral external ears normal, oropharynx moist, , nose normal. [] Eyes: PERRLA, EOMI, conjunctiva normal, no discharge. [] Neck: Normal range of motion, no tenderness, supple, no stridor. [] Cardiovascular:Heart rate regular rhythm, no murmur [] Lungs & Thorax: Bilateral breath sounds clear to auscultation [] Abdomen: Bowel sounds normal, soft, no tenderness. [] Rectum : No external hemorrhoids, no active bleeding, tenderness on digital insertion no gross blood present. [] Back: No tenderness. [] Extremities: No tenderness, no edema. [] Neurologic: Alert and oriented, normal motor function, normal sensory function, no focal deficits noted. [] Psychologic: Affect normal, judgement normal, mood normal. [] Current Patient Data Vital Signs Vital Signs Date Time Temp Pulse Resp B/P (MAP) Pulse Ox O2 Delivery O2 Flow Rate FiO2 12/18/17 20:24 14 98 Room Air 12/18/17 20:24 64 118/78 (91) 12/18/17 19:10 98.1 98.1 Lab Values Laboratory Tests Test 12/18/17 19:18 12/18/17 19:20 White Blood Count 7.1 x10^3/uL (4.0-11.0) Red Blood Count 5.05 x10^6/uL (4.30-5.70) Hemoglobin 15.9 g/dL (13.0-17.5) Hematocrit 45.6 % (39.0-53.0) Mean Corpuscular Volume 90 fL (79-100) Mean Corpuscular Hemoglobin 31 pg (25-35) Mean Corpuscular Hemoglobin Concent 35 g/dL (31-37) Red Cell Distribution Width 13.7 % (11.5-14.5) Platelet Count 249 x10^3/uL (140-400) Neutrophils (%) (Auto) 61 % (31-73) Lymphocytes (%) (Auto) 26 % (24-48) Monocytes (%) (Auto) 7 % (0-9) Eosinophils (%) (Auto) 6 % (0-3) H Basophils (%) (Auto) 1 % (0-3) Neutrophils # (Auto) 4.4 x10^3uL (1.8-7.7) Lymphocytes # (Auto) 1.9 x10^3/uL (1.0-4.8) Monocytes # (Auto) 0.5 x10^3/uL (0.0-1.1) Eosinophils # (Auto) 0.4 x10^3/uL (0.0-0.7) Basophils # (Auto) 0.0 x10^3/uL (0.0-0.2) Prothrombin Time 12.7 SEC (11.7-14.0) Prothrombin Time INR 1.0 (0.8-1.1) Sodium Level 141 mmol/L (136-145) Potassium Level 3.9 mmol/L (3.5-5.1) Chloride Level 102 mmol/L (98-107) Carbon Dioxide Level 29 mmol/L (21-32) Anion Gap 10 (6-14) Blood Urea Nitrogen 16 mg/dL (8-26) Creatinine 0.9 mg/dL (0.7-1.3) Estimated GFR (Cockcroft-Gault) 90.4 Glucose Level 118 mg/dL (70-99) H Calcium Level 9.7 mg/dL (8.5-10.1) Stool Occult Blood Positive (NEG) Laboratory Tests 12/18/17 19:18 Laboratory Tests 12/18/17 19:18 EKG EKG [] Radiology/Procedures Radiology/Procedures [CT Abdomen and pelvis: No acute findings per radiology report.] Course & Med Decision Making Course & Med Decision Making Pertinent Labs and Imaging studies reviewed. (See chart for details) [Abdomen is soft, nontender: Rectal bleeding in the ED. Lab and imaging studies reviewed nondiagnostic. To patient pain. Suspect rectal fissure versus fistula versus unknown cause. Will treat supportively with PCP follow-up with recommendation of GI referral. Precautions reviewed.] Dragon Disclaimer Dragon Disclaimer This electronic medical record was generated, in whole or in part, using a voice recognition dictation system. Departure Departure Impression: Primary Impression: Rectal bleeding Additional Impression: Rectal pain Disposition: 01 HOME, SELF-CARE Condition: GOOD Referrals: SAEED ALVARES MD (PCP) Patient Instructions: Rectal Bleeding, [id number] Additional Instructions: You were evaluated in the emergency department for rectal bleeding and pain. Lab and imaging studies were performed and are nondiagnostic. The cause of your bleeding has not been determined. Please take pain medications as directed along with stool softeners. Follow-up with your PCP tomorrow for reevaluation and consideration of GI referral. If you develop new or worsening symptoms, please return to the emergency department. Scripts Sennosides/Docusate Sodium (SENNA LAXATIVE TABLET) 1 Each Tablet 1 EACH PO Q12HR, #20 TAB Prov: SOFI ROSARIO DO 12/18/17 Tramadol Hcl (TRAMADOL HCL) 50 Mg Tablet 50 MG PO Q6H PRN for PAIN for 3 Days, #15 TAB 0 Refills Prov: SOFI ROSARIO DO 12/18/17 Problem Qualifiers SOFI ROSARIO DO Dec 18, 2017 21:31
[2017-12-18 21:47] VITALS: BP 116/65
== END 2017-12-18 21:55 | disposition home or self-care (01) ==
LOC: ER 18:28
DX: K62.5 Hemorrhage of anus and rectum (principal); E11.9 Type 2 diabetes mellitus without complications; I25.10 Atherosclerotic heart disease of native coronary artery without angina pectoris
CPT/HCPCS: 36415; 74177; 80048; 82274; 85025; 85610; 96374; 96375; 99285; J2270; J2405; Q9967

== ENCOUNTER 2018-02-21 02:06 | Emergency (ER) | payer BC ==
[~2018-02-21] VITALS: Ht 160 cm; Wt 72.6 kg
[~2018-02-21 02:06] MED LIST changes: +CARV6.2511 PO; -CARV6.252 PO; +SENN1TAB29 PO; +TRAM50TA PO
[2018-02-21] MEDS ORDERED: ONDANSETRON ODT 4 MG TAB.RAPDIS. PO ONE (03:30)
[2018-02-21] MEDS ORDERED: MORPHINE SULFATE 10 MG/ML VIAL. IM ONE (03:30)
[2018-02-21 03:31] VITALS: BP 119/75
[2018-02-21] MEDS ORDERED: TRAM50TA PO (03:41)
--- NOTE | 2018-02-21 06:58 | PHYS DOC ---
Past Medical History Past Medical History: CAD, Diabetes-Type II, Heart Disease Additional Past Medical Histor: stent X 1 Past Surgical History: Other Additional Past Surgical Histo: cardiac stents, hemmorroid surgery 02/16 Alcohol Use: Occasionally Drug Use: None Adult General Chief Complaint Chief Complaint: POST-OP PROBLEM [facility] HPI Patient is a 47 year old female who presents with rectal pain and rectal bleeding with bowel monvement post hemorrhoidectomy per Dr. Ordonez yesterday. Bleeding resolved. Pain rated as moderate. No pain medication taken in the past 12 hours. History obtained from the patient's daughter.[] Review of Systems Review of Systems ROS as per [facility] All other systems were reviewed and found to be within normal limits, except as documented in this note. Current Medications Current Medications Current Medications Medications (Trade) Dose Ordered Sig/Neel Start Time Stop Time Status Last Admin Dose Admin Morphine Sulfate (Morphine Sulfate) 10 mg 1X ONCE 02/21/18 03:30 02/21/18 03:31 DC 02/21/18 03:23 10 MG Ondansetron HCl (Zofran Odt) 4 mg 1X ONCE 02/21/18 03:30 02/21/18 03:31 DC 02/21/18 03:20 4 MG Allergies Allergies Allergies Coded Allergies Type Severity Reaction Last Updated Verified No Known Drug Allergies 08/18/16 No Physical Exam Physical Exam Constitutional: Well developed, well nourished, no acute distress, non-toxic appearance. [] Abdomen: Bowel sounds normal, soft, no tenderness, no masses, no pulsatile masses. [] No tenderness, no CVA tenderness. [] Rectal: No active bleeding appreciated lesions. Rectal exam deferred due to concern for patient tolerance and comfort. [] Current Patient Data Vital Signs Vital Signs Date Time Temp Pulse Resp B/P (MAP) Pulse Ox O2 Delivery O2 Flow Rate FiO2 02/21/18 03:31 92 119/75 (90) 97 Room Air 02/21/18 03:23 16 02/21/18 02:10 97.5 97.5 EKG EKG [] Radiology/Procedures Radiology/Procedures [] Course & Med Decision Making Course & Med Decision Making Pertinent Labs and Imaging studies reviewed. (See chart for details) [No active rectal bleeding in the ED. Abdominal pain resolved with treatment. Recommend continue supportive care and follow-up with Dr. Ordonez's office tomorrow. Return precautions reviewed] Dragon Disclaimer Brayden Disclaimer This electronic medical record was generated, in whole or in part, using a voice recognition dictation system. Departure Departure Impression: Primary Impression: Postoperative pain Disposition: 01 HOME, SELF-CARE Condition: GOOD Patient Instructions: Rectal Bleeding, [id number] Additional Instructions: Please take tramadol for pain along with stool softner. Follow up with Dr. Ordonez's office in the morning and update them with your progress. Scripts Tramadol Hcl (TRAMADOL HCL) 50 Mg Tablet 50 MG PO Q6H PRN for PAIN for 3 Days, #15 TAB 0 Refills Prov: SOFI ROSARIO DO 02/21/18 SOFI ROSARIO DO Feb 21, 2018 06:58
== END 2018-02-21 03:48 | disposition home or self-care (01) ==
LOC: ER 02:06
DX: G89.18 Other acute postprocedural pain (principal); K62.89 Other specified diseases of anus and rectum; E11.9 Type 2 diabetes mellitus without complications; I25.10 Atherosclerotic heart disease of native coronary artery without angina pectoris
CPT/HCPCS: 96372; 99283; J2270; Q0162

== ENCOUNTER → 2018-09-20 | Outpatient (CLI) | payer BC ==
[2018-03-01 11:00] VITALS: BP 84/58
--- NOTE | 2018-09-20 09:54 | CARD ---
MR#: [id number] Date of Study: 09/20/2018 Ordering Physician: KIMBERLY ROME, Referring Physician: KIMBERLY ROME Tech: Doreen Goss JIMENEZ APPROVED REPORT EXAM: Two-dimensional and M-mode echocardiogram with Doppler and color Doppler. Other Information Quality : AverageHR: 70bpm Rhythm : NSR INDICATION CAD 2D DIMENSIONS RVDd2.9 (2.9-3.5cm)Left Atrium(2D)3.0 (1.6-4.0cm) IVSd1.2 (0.7-1.1cm)Aortic Root(2D)3.0 (2.0-3.7cm) LVDd4.8 (3.9-5.9cm)LVOT Diameter2.1 (1.8-2.4cm) PWd0.9 (0.7-1.1cm)LVDs3.4 (2.5-4.0cm) FS (%) 28.8 %SV59.2 ml LVEF(%)55.4 (>50%) Aortic Valve AoV Peak Gerardo.136.3cm/sAoV VTI31.3cm AO Peak GR.7.4mmHgLVOT Peak Gerardo.91.5cm/s AO Mean GR.5mmHgAVA (VMAX)2.25cm2 JULIETA (VTI)2.30cm2 Mitral Valve MV E Rbspdmrm55.0cm/sMV DECEL [id number] MV A Ahqlezcs85.1cm/sE/A Ratio1.1 Pulmonary Valve PV Peak Ugdrtnqi865.4cm/s Pulmonary Vein S1 Hahfecbu71.0cm/sD2 Holwvhxz22.6cm/s PVa [id number] LEFT VENTRICLE The left ventricle is normal size. Proximal septal thickening is noted. The left ventricular systolic function is normal. The Ejection Fraction is 55-60%. There is normal LV segmental wall motion. RIGHT VENTRICLE The right ventricle is normal size. There is normal right ventricular wall thickness. The right ventr icular systolic function is normal. ATRIA The left atrium size is normal. The right atrium size is normal. The interatrial septum is intact wit h no evidence for an atrial septal defect or patent foramen ovale as noted on 2-D or Doppler imaging. AORTIC VALVE The aortic valve is normal in structure and function. The aortic valve is trileaflet. Doppler and Col or Flow revealed no significant aortic regurgitation. There is no significant aortic valvular stenosi s. There is no aortic valvular vegetation. MITRAL VALVE The mitral valve is normal in structure and function. There is no evidence of mitral valve prolapse. There is no mitral valve stenosis. Doppler and Color-flow revealed trace mitral regurgitation. TRICUSPID VALVE The tricuspid valve is normal in structure and function. Doppler and Color Flow revealed trace tricus pid regurgitation. There is no tricuspid valve prolapse or vegetation. There is no tricuspid valve st enosis. PULMONIC VALVE The pulmonary valve is normal in structure and function. Doppler and Color Flow revealed trace pulmon ic valvular regurgitation. There is no pulmonic valvular stenosis. GREAT VESSELS The aortic root is normal in size. The ascending aorta is normal in size. The IVC is normal in size a nd collapses >50% with inspiration. PERICARDIAL EFFUSION There is no evidence of significant pericardial effusion. Critical Notification Critical Value: No <Conclusion> The left ventricular systolic function is normal. The Ejection Fraction is 55-60%. There is normal LV segmental wall motion. Trace mitral regurgitation. Trace tricuspid regurgitation. There is no evidence of significant pericardial effusion. Signed by : Kimberly Rome, Electronically Approved : 09/20/2018 09:53:59
== END | disposition home or self-care (01) ==
LOC: ECHO 08:50
PROVIDERS: ATTEND Internal Medicine Cardiovascular Disease
DX: I25.10 Atherosclerotic heart disease of native coronary artery without angina pectoris (principal)
CPT/HCPCS: 93306

== ENCOUNTER → 2019-04-05 | Outpatient (CLI) | payer BC ==
[2018-03-01 11:00] VITALS: BP 84/58
[~2019-04-05] MED LIST changes: +REGADENOSON 0.4 MG/5 ML DISP.SYRIN. IV ONE
--- NOTE | 2019-04-05 11:16 | RAD ---
MR#: [id number] Date of Study: 04/05/2019 Ordering Physician: KIMBERLY SWEENEY, Referring Physician: ORACIO TAVERAS Tech: ISIAH Mooney APPROVED REPORT Test Type: Pharmacological Stress Nurse/Tech: Hermelindo LYNN Test Indications: CAD Cardiac History: [place] in 2018, HTN, See EMR. Medications: ASA QD, See EMR. Medical History: See EMR. Resting ECG: SR Resting Heart Rate: 65 bpm Resting Blood Pressure: 115/77mmHg Pretest Chest Pain: No chest pain Nurse/Tech Notes Lungs CTA, Heart tones regular. Consent: The procedure was explained to the patient in lay terms. Informed consent was witnessed. Omer eout was entered into [employer]. History and Stress Test performed by ISIAH Mooney Pharm. Details Pharmacologic stress testing was performed using 0.4mg per 5ml of regadenoson given intravenously ove r 7-10 seconds. Stress Symptoms No chest pain or symptoms. POST EXERCISE Reason for Termination: Infusion complete Max HR: 93 bpm Max Blood Pressure: 116/77mmHg Blood Pressure response to exercise: Normal blood pressure response during stress. Heart Rate response to exercise: WNL Chest Pain: No. Arrhythmia: Yes. Few PVCs. ST Change: No. INTERPRETATION Stress EKG Conclusion: No evidence of stress induced EKG changes. Imaging Protocol IMAGE PROTOCOL: Rest Tc-99m/stress Tc-99m 1 day Rest: Stress: Viability: Radiopharm.Tc99m [id number] Sestamibi [id number] 33mCi Duration 15min. 10min. Img Date 04/05/2019 04/05/2019 Rest Admin Site:IV - Right AntecubitalAdministrator:RT Rebeca (Diana)(N) Stress Admin Site: IV - Right AntecubitalAdministrator: ISIAH Mooney STRESS DATA End Diast. Vol.116.0mlAv. Heart Rate72.0bpm End Syst. Vol.36.0mlCO Index BSA0.0L/min Myocardial Tixk123.0gEject. Ctaobhwv02.0% Stress Rates Pk. Fill Rate2.41EDV/secLVtime Pk. Fill 128.99msec Pk. Empty Rate3.33ESV/secLVtime Pk. Bipyl094.90msec /3 Pk. 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 Wall Motion Mild lateral wall hypokinesis. LV Perf. Quant 17 Seg. SSS9.00 17 Seg. SRS8.00 17 Seg. SDS1.00 Stress Defect Extent (% LAD)0.00Rest Defect Extent (% LAD)0.00Rev. Defect Extent (% LAD)0.00 Stress Defect Extent (% LCX) 83.80Rest Defect Extent (% LCX)78.80Rev. Defect Extent (% LCX)22.50 Stress Defect Extent (% RCA)0.00Rest Defect Extent (% RCA)0.00Rev. Defect Extent (% RCA)0.00 Stress Defect Extent (% NAMRATA)19.60Rest Defect Extent (% NAMRATA)17.40Rev. Defect Extent (% NAMRATA)4.80 Other Information Quality:Good Risk Assessment: Moderate Risk Conclusion 1. No evidence of stress induced EKG changes 2. Large lateral wall FIXED defect suggestive of prior infarct 3. Normal LV function. EF 55% 4. Low to moderate risk study Signed by : Jhony Humphrey, Electronically Approved : 04/05/2019 11:15:40
== END | disposition home or self-care (01) ==
LOC: NM 08:11
PROVIDERS: ATTEND Internal Medicine Cardiovascular Disease
DX: I25.10 Atherosclerotic heart disease of native coronary artery without angina pectoris (principal); I25.2 Old myocardial infarction; I10 Essential (primary) hypertension
CPT/HCPCS: 78452; 93017; A9500; J2785

== ENCOUNTER 2019-07-28 15:08 | Emergency (ER) | payer BC ==
[~2019-07-28] VITALS: Ht 170.2 cm; Wt 87.0 kg
[~2019-07-28 15:08] MED LIST changes: -REGADENOSON 0.4 MG/5 ML DISP.SYRIN. IV ONE
[2019-07-28 15:16] VITALS: BP 121/73
[2019-07-28] MEDS ORDERED: hydrOXYzine 25 MG TABLET PO PRN (16:00)
[2019-07-28] MEDS ORDERED: HYDR25CA75 PO (16:24)
--- NOTE | 2019-07-28 16:25 | PHYS DOC ---
Past Medical History Past Medical History: CAD, Diabetes-Type II, Heart Disease Additional Past Medical Histor: stent X 1 Past Surgical History: Other Additional Past Surgical Histo: cardiac stents, hemmorroid surgery 02/16 Smoking Status: Never Smoker Alcohol Use: Occasionally Drug Use: None General Adult EDM: Chief Complaint: ITCHING HPI: HPI: Patient is a 48 year old male, accompanied by his daughter, who presents to the emergency department with complaints of itching all over inside of his body for several months. Patient states that he has been applying the hydrocortisone cream that was prescribed by his primary care doctor with no relief in his itching. Patient states the only thing that helps itching go away is taking a shower. After he takes a shower his skin does not itch for about 30 minutes. He denies any new foods, medications, detergents, or environmental exposures. Patient denies any shortness of breath, wheezing, sore throat, difficulty swallowing, cough, nausea, vomiting, diarrhea, abdominal pain, back pain, redness, warmth, or rash. He currently denies any pain. Review of Systems: Review of Systems: Constitutional: Denies fever or chills. [] Eyes: Denies change in visual acuity. [] HENT: Denies nasal congestion or sore throat. [] Respiratory: Denies cough or shortness of breath. [] Cardiovascular: Denies chest pain or edema. [] GI: Denies abdominal pain, nausea, vomiting, or diarrhea. [] Musculoskeletal: Denies back pain or joint pain. [] Integument: See HPI Neurologic: Denies headache, focal weakness or sensory changes. [] Lymphatic: Denies swollen glands. [] Psychiatric: Denies depression or anxiety. [] Heart Score: Risk Factors: Risk Factors: DM, Current or recent (<one month) smoker, HTN, HLP, family history of CAD, obesity. Risk Scores: Score 0 - 3: 2.5% MACE over next 6 weeks - Discharge Home Score 4 - 6: 20.3% MACE over next 6 weeks - Admit for Clinical Observation Score 7 - 10: 72.7% MACE over next 6 weeks - Early Invasive Strategies Current Medications: Current Medications Medications (Trade) Dose Ordered Sig/Neel Start Time Stop Time Status Last Admin Dose Admin Hydroxyzine HCl (Atarax) 25 mg 1X PRN 07/28/19 16:00 Allergies: Allergies: Allergies Coded Allergies Type Severity Reaction Last Updated Verified No Known Drug Allergies 08/18/16 No Physical Exam: PE: Constitutional: Well developed, well nourished, no acute distress, non-toxic appearance. [] HENT: Normocephalic, atraumatic, bilateral external ears normal, nose normal. [] Eyes: PERRLA, EOMI, conjunctiva normal, no discharge. [] Neck: Normal range of motion, no stridor. [] Cardiovascular:Heart rate regular rhythm Lungs & Thorax: Respirations even and unlabored, no retractions, no respiratory distress Skin: Warm, dry, no erythema; generalized dry flaky skin noted consistent with dry skin dermatitis. Extremities: No cyanosis, ROM intact, no edema. [] Neurologic: Alert and oriented X 3, no focal deficits noted. [] Psychologic: Affect normal, judgement normal, mood normal. [] Current Patient Data: Vital Signs: Vital Signs Date Time Temp Pulse Resp B/P (MAP) Pulse Ox O2 Delivery O2 Flow Rate FiO2 07/28/19 15:16 98.3 78 16 121/73 (89) 78 98.3 EKG: EKG: [] Radiology/Procedures: Radiology/Procedures: [] Course & Med Decision Making: Course & Med Decision Making Pertinent Labs and Imaging studies reviewed. (See chart for details) [] Dragon Disclaimer: Dragon Disclaimer: This electronic medical record was generated, in whole or in part, using a voice recognition dictation system. Departure Departure Impression: Primary Impression: Dry skin dermatitis Additional Impression: Generalized pruritus Disposition: HOME, SELF-CARE Condition: STABLE Referrals: TOY MARKHAM MD Patient Instructions: Itching-Brief Additional Instructions: Fill the prescription and take it as directed for intense itching. Recommend that you do not take hot showers. Apply moisturizing cream such as Cetaphil to your skin twice daily. If your symptoms continue I recommend that you follow-up with a marketing manager health communications for further evaluation, I have provided Dr. Markham's information. Return to the ER if your symptoms worsen or you develop shortness of breath or fever. Scripts Hydroxyzine Pamoate (HYDROXYZINE PAMOATE) 25 Mg Capsule 1 CAP PO TID PRN for ITCHING for 10 Days, #30 CAP 0 Refills Prov: SANKET MCKEON PUNCH MOLDER 07/28/19 Justicifation of Admission Dx: Justifications for Admission: Justification of Admission Dx: N/A SANKET MCKEON PUNCH MOLDER Jul 28, 2019 16:25
== END 2019-07-28 16:47 | disposition home or self-care (01) ==
LOC: ER 15:08
DX: L85.3 Xerosis cutis (principal); L29.8 Other pruritus; I51.9 Heart disease, unspecified; E11.9 Type 2 diabetes mellitus without complications; I25.10 Atherosclerotic heart disease of native coronary artery without angina pectoris; Z98.890 Other specified postprocedural states
CPT/HCPCS: 99283

== ENCOUNTER → 2020-03-11 | Outpatient (CLI) | payer BC ==
[~2020-03-11] MED LIST changes: -ASPI-612 PO; +ASPI-886 PO; +HYDR25CA75 PO; -LISI-338 PO; +LISI-517 PO
--- NOTE | 2020-03-11 13:57 | CARD ---
MR#: [id number] Date of Study: 03/11/2020 Ordering Physician: KIMBERLY SWEENEY, Referring Physician: KIMBERLY SWEENEY, Tech: Tatiana Cardenas [facility] APPROVED REPORT EXAM: Two-dimensional and M-mode echocardiogram with Doppler and color Doppler. Other Information Quality : AverageHR: 69bpm INDICATION Cardiac Disease: CAD 2D DIMENSIONS Left Atrium(2D)3.0 (1.6-4.0cm)IVSd1.2 (0.7-1.1cm) Aortic Root(2D)3.0 (2.0-3.7cm)LVDd5.3 (3.9-5.9cm) LVOT Diameter2.0 (1.8-2.4cm)PWd1.1 (0.7-1.1cm) LVDs3.4 (2.5-4.0cm) Aortic Valve AoV Peak Gerardo.126.2cm/sAoV VTI24.5cm AO Peak GR.6.4mmHgLVOT Peak Gerardo.100.4cm/s LVOT VTI 20.74cmAO Mean GR.4mmHg Mitral Valve MV E Wmgbmhto18.4cm/sMV DECEL [id number] MV A Icffcdma24.8cm/sMV [id number] E/A Ratio1.2MVA (PHT)3.34cm2 TDI E/Lateral E'7.5E/Medial E'9.4 Pulmonary Valve PV Peak Ehhupkue20.8cm/sPV Peak Grad.3mmHg Pulmonary Vein S1 Nghvuikv73.6cm/sD2 Etlisfjz11.5cm/s PVa [id number] LEFT VENTRICLE The left ventricle is normal size. There is mild concentric left ventricular hypertrophy. The left ve ntricular systolic function is normal and the ejection fraction is within normal range. The Ejection Fraction is 50-55%. There is normal LV segmental wall motion. Transmitral Doppler flow pattern is Gra de II-pseudonormal filling dynamics. RIGHT VENTRICLE The right ventricle is normal size. There is normal right ventricular wall thickness. The right ventr icular systolic function is normal. ATRIA The left atrium size is normal. The right atrium size is normal. The interatrial septum is intact wit h no evidence for an atrial septal defect or patent foramen ovale as noted on 2-D or Doppler imaging. AORTIC VALVE The aortic valve is normal in structure and function. Doppler and Color Flow revealed no significant aortic regurgitation. There is no significant aortic valvular stenosis. Calculated aortic valve area is 2.43 cm2 with maximum pressure gradient of 8 mmHg and mean pressure gradient of 4 mmHg. MITRAL VALVE The mitral valve is normal in structure and function. There is no evidence of mitral valve prolapse. There is no mitral valve stenosis. Doppler and Color-flow revealed trace mitral regurgitation. TRICUSPID VALVE The tricuspid valve is normal in structure and function. Doppler and Color Flow revealed no tricuspid valve regurgitation noted. There is no tricuspid valve stenosis. PULMONIC VALVE The pulmonic valve is not well visualized. Doppler and Color Flow revealed no pulmonic valvular regur gitation. GREAT VESSELS The aortic root is normal in size. The IVC is normal in size and collapses >50% with inspiration. PERICARDIAL EFFUSION There is no evidence of significant pericardial effusion. Critical Notification Critical Value: No <Conclusion> The left ventricle is normal size. The left ventricular systolic function is normal and the ejection fraction is within normal range. The Ejection Fraction is 50-55%. There is mild concentric left ventricular hypertrophy. Doppler and Color Flow revealed no significant aortic regurgitation. There is no significant aortic valvular stenosis. Doppler and Color-flow revealed trace mitral regurgitation. Doppler and Color Flow revealed no tricuspid valve regurgitation noted. Signed by : Dada Chow MD Electronically Approved : 03/11/2020 13:56:19
== END ==
LOC: ECHO 09:27
PROVIDERS: ATTEND Internal Medicine Cardiovascular Disease
DX: I51.7 Cardiomegaly (principal); I25.10 Atherosclerotic heart disease of native coronary artery without angina pectoris
CPT/HCPCS: 93306